=== PATIENT | female | born 1940 | race Caucasian/White ===

== ENCOUNTER → 2018-04-18 08:47 | Outpatient (CLI) | payer MEDICARE, OTHER, SELFPAY ==
[2018-04-18 10:24] LABS: Creatinine Urine Random 243.9 mg/dL
[2018-04-18 10:26] LABS: Alanine Aminotransferase 24 IU/L (9-52); Albumin 4.3 g/dL (3.5-5.0); Albumin Globulin Ratio 1.7 (1.0-2.8); Alkaline Phosphatase 45 U/L (38-126); Aspartate Aminotransferase 18 IU/L (14-36); BUN Creatinine Ratio 16.4 (6-22); Bilirubin Total 0.8 mg/dL (0.2-1.3); Blood Urea Nitrogen 18 mg/dL (7-17); Calcium 10.1 mg/dL (8.4-10.2); Carbon Dioxide 29 mmol/L (22-32); Chloride 101 mmol/L (98-107); Cholesterol 142 mg/dL (140-199); Globulin 2.6 g/dL (1.7-4.1); Glucose 175 mg/dL (80-110); HDL Cholesterol 51 mg/dL (40-60); HEMOLYSIS < 15 (0-50); LDL Cholesterol Calculated 54 mg/dL (<100); Potassium 4.3 mmol/L (3.4-5.1); Sodium 140 mmol/L (137-145); Total Protein 6.9 g/dL (6.3-8.2); Triglycerides 186 mg/dL (35-150)
[2018-04-18 10:30] LABS: Microalbumi Creatinin Ratio Ur 43.8 ug/mg CR (<30); Microalbumin Urine Random 10.7 mg/dL (0-1.6)
== END ==
PROVIDERS: PCP Physician Assistant; Visit Provider Physician Assistant
DX: E03.9 Hypothyroidism, unspecified (principal); E11.9 Type 2 diabetes mellitus without complications; E78.5 Hyperlipidemia, unspecified; I10 Essential (primary) hypertension
CPT/HCPCS: 36415; 80053; 80061; 82043; 82570; 83036; 84443

== ENCOUNTER → 2018-08-03 09:55 | Outpatient (CLI) | payer MEDICARE, OTHER, SELFPAY ==
[2018-08-03 10:55] LABS: Cholesterol 131 mg/dL (140-199); HDL Cholesterol 54 mg/dL (40-60); LDL Cholesterol Calculated 46 mg/dL (<100); Triglycerides 157 mg/dL (35-150)
[2018-08-03 11:06] LABS: Hemoglobin A1C% w Est Avg Glu 7.5 % (4.0-6.0)
== END ==
PROVIDERS: PCP Physician Assistant; Visit Provider Physician Assistant
DX: E03.9 Hypothyroidism, unspecified (principal); E11.65 Type 2 diabetes mellitus with hyperglycemia; E11.9 Type 2 diabetes mellitus without complications; E78.5 Hyperlipidemia, unspecified; I10 Essential (primary) hypertension
CPT/HCPCS: 36415; 80061; 83036

== ENCOUNTER → 2018-10-26 08:25 | Outpatient (CLI) | payer MEDICARE, OTHER, SELFPAY ==
[2018-10-26 09:00] LABS: Alanine Aminotransferase 23 IU/L (9-52); Albumin 4.3 g/dL (3.5-5.0); Albumin Globulin Ratio 1.7 (1.0-2.8); Alkaline Phosphatase 43 U/L (38-126); Aspartate Aminotransferase 14 IU/L (14-36); Bilirubin Total 0.6 mg/dL (0.2-1.3); Blood Urea Nitrogen 19 mg/dL (7-17); Carbon Dioxide 27 mmol/L (22-32); Chloride 102 mmol/L (98-107); Cholesterol 155 mg/dL (140-199); Estimated Glomerular Filt Rate 53.5 mL/min (>60); Globulin 2.6 g/dL (1.7-4.1); Glucose 174 mg/dL (80-110); HDL Cholesterol 52 mg/dL (40-60); HEMOLYSIS < 15 (0-50); LDL Cholesterol Calculated 59 mg/dL (<100); Sodium 138 mmol/L (137-145); Total Protein 6.9 g/dL (6.3-8.2); Triglycerides 218 mg/dL (35-150)
[2018-10-26 09:09] LABS: Hemoglobin A1C% w Est Avg Glu 7.9 % (4.0-6.0)
== END ==
PROVIDERS: PCP Physician Assistant; Visit Provider Physician Assistant
DX: E11.65 Type 2 diabetes mellitus with hyperglycemia (principal); E78.5 Hyperlipidemia, unspecified; I10 Essential (primary) hypertension
CPT/HCPCS: 36415; 80053; 80061; 83036

== ENCOUNTER → 2018-11-09 13:25 | Oncology outpatient (ONC) | payer MEDICARE, OTHER, SELFPAY ==
[2018-11-09 14:08] VITALS: BP 113/61; PULSE 61; RESP 16; TEMP 36.6; O2SAT 99
[2018-11-09] MEDS: ZOLEDRONIC ACID 5 MG in SODIUM CHLORIDE 0.9% 100 ML 318.75 ML IV (14:16)
== END ==
PROVIDERS: PCP Physician Assistant; Visit Provider Physician Assistant
DX: M85.89 Other specified disorders of bone density and structure, multiple sites (principal)
CPT/HCPCS: 96374; J3489

== ENCOUNTER → 2019-02-01 09:27 | Outpatient (CLI) | payer MEDICARE, OTHER, SELFPAY ==
--- NOTE | 2019-02-01 | DI.MG.S_ITS ---
BILATERAL DIGITAL SCREENING MAMMOGRAM 3D/2D WITH CAD: 02/01/2019 CLINICAL: Routine screening. Comparison is made to exams dated: 06/07/2017 mammogram, 12/25/2014 mammogram, and 12/18/2013 mammogram - [facility]. There are scattered fibroglandular elements in both breasts. Current study was also evaluated with a Computer Aided Detection (CAD) system. No significant masses, calcifications, or other findings are seen in either breast. There has been no significant interval change. IMPRESSION: NEGATIVE There is no mammographic evidence of malignancy. A 1 year screening mammogram is recommended. This exam was interpreted at Station ID: [id number]. NOTE: For mammograms, a report in lay terms will be sent to the patient. Approximately 15% of breast malignancies will not be visualized mammographically. In the management of a palpable breast mass, a negative mammogram must not discourage biopsy of a clinically suspicious lesion. Electronically Signed By: Tra caballero/jerome:02/01/2019 14:13:06 letter sent: Normal Exam ACR BI-RADS Category 1: Negative [id number]
== END ==
PROVIDERS: PCP Physician Assistant; Visit Provider Physician Assistant
DX: Z12.31 Encounter for screening mammogram for malignant neoplasm of breast (principal)
CPT/HCPCS: 77063; 77067

== ENCOUNTER → 2019-06-02 08:53 | Outpatient (CLI) | payer MEDICARE, OTHER, SELFPAY ==
[2019-06-02 10:13] LABS: Creatinine Urine Random 230.3 mg/dL
[2019-06-02 10:14] LABS: Add Manual Diff / Slide Review NO; Basophils Absolute Auto 100 /uL (0-100); Basophils Percent Auto 1.1 % (0-2); Eosinophils Absolute Auto 500 /uL (0-450); Eosinophils Percent Auto 8.3 % (2-4); Hematocrit 38.2 % (36-46); Hemoglobin 12.6 g/dL (12.0-16.0); Lymphocytes Absolute Auto 1600 /uL (1100-4500); Lymphocytes Percent Auto 28.7 % (25-40); Mean Corpuscular Hemoglobin 28.7 PG (26-34); Mean Corpuscular Volume 87.1 fL (80-100); Monocytes Absolute Auto 400 /uL (0-900); Monocytes Percent Auto 6.7 % (3-14); Neutrophils Absolute Auto 3100 /uL (1500-7000); Neutrophils Percent Auto 55.2 % (50-75); Platelet Count 294 X10^3/uL (150-400); Red Blood Cell Count 4.39 X10^6/uL (4.0-5.2); Red Cell Distribution Width 13.3 % (11.6-14.8); White Blood Cell Count 5.6 X10^3/uL (4.5-11.0)
[2019-06-02 10:17] LABS: Hemoglobin A1C% w Est Avg Glu 6.9 % (4.0-6.0)
[2019-06-02 10:17] LABS: Microalbumi Creatinin Ratio Ur 9.5 ug/mg CR (<30); Microalbumin Urine Random 2.2 mg/dL (0-1.6)
[2019-06-02 10:27] LABS: Alanine Aminotransferase 18 IU/L (9-52); Albumin Globulin Ratio 1.7 (1.0-2.8); Alkaline Phosphatase 33 U/L (38-126); Aspartate Aminotransferase 17 IU/L (14-36); BUN Creatinine Ratio 19.1 (6-22); Bilirubin Total 0.9 mg/dL (0.2-1.3); Blood Urea Nitrogen 21 mg/dL (7-17); Calcium 10.3 mg/dL (8.4-10.2); Carbon Dioxide 26 mmol/L (22-32); Chloride 102 mmol/L (98-107); Cholesterol 100 mg/dL (140-199); Estimated Glomerular Filt Rate 47.9 mL/min (>60); Globulin 2.3 g/dL (1.7-4.1); Glucose 141 mg/dL (80-110); HDL Cholesterol 44 mg/dL (40-60); HEMOLYSIS < 15 (0-50); Iron 96 ug/dL (37-170); LDL Cholesterol Calculated 31 mg/dL (<100); Potassium 4.8 mmol/L (3.4-5.1); Sodium 139 mmol/L (137-145); Total Protein 6.3 g/dL (6.3-8.2); Triglycerides 126 mg/dL (35-150)
[2019-06-02 10:57] LABS: Thyroid Stimulating Hormone 0.82 uIU/mL (0.47-4.68)
[2019-06-02 11:15] LABS: Vitamin B12 170 pg/mL (239-931)
== END ==
PROVIDERS: PCP Physician Assistant; Visit Provider Physician Assistant
DX: E03.9 Hypothyroidism, unspecified (principal); E11.65 Type 2 diabetes mellitus with hyperglycemia; E78.5 Hyperlipidemia, unspecified; I10 Essential (primary) hypertension; D50.9 Iron deficiency anemia, unspecified; E53.8 Deficiency of other specified B group vitamins; M85.89 Other specified disorders of bone density and structure, multiple sites; M81.0 Age-related osteoporosis without current pathological fracture
CPT/HCPCS: 36415; 80053; 80061; 82043; 82306; 82570; 82607; 83036; 83540; 84443; 85025

== ENCOUNTER → 2019-10-24 10:28 | Outpatient (CLI) | payer MEDICARE, OTHER, SELFPAY ==
[2019-10-24 13:02] LABS: Vitamin B12 223 pg/mL (239-931)
[2019-10-24 15:29] LABS: Vitamin D 25 Hydroxy (D3) 44.3 ng/mL (30.0-100.0)
== END ==
PROVIDERS: PCP Family Medicine; Referring Provider Family Medicine; Visit Provider Family Medicine
DX: E53.8 Deficiency of other specified B group vitamins (principal); E55.9 Vitamin D deficiency, unspecified
CPT/HCPCS: 36415; 82306; 82607

== ENCOUNTER → 2020-02-02 09:07 | Outpatient (CLI) | payer MEDICARE, OTHER, SELFPAY ==
[2020-02-02 11:21] LABS: Alanine Aminotransferase 11 IU/L (<35); Albumin 3.9 g/dL (3.5-5.0); Albumin Globulin Ratio 1.5 (1.0-2.8); Alkaline Phosphatase 47 U/L (38-126); Aspartate Aminotransferase 17 IU/L (14-36); BUN Creatinine Ratio 14.2 (6-22); Bilirubin Total 0.4 mg/dL (0.2-1.3); Blood Urea Nitrogen 17 mg/dL (7-17); Calcium 10.1 mg/dL (8.4-10.2); Carbon Dioxide 30 mmol/L (22-32); Chloride 102 mmol/L (98-107); Estimated Glomerular Filt Rate 43.2 mL/min (>60); Globulin 2.6 g/dL (1.7-4.1); Glucose 124 mg/dL (80-110); HEMOLYSIS < 15 (0-50); Potassium 4.8 mmol/L (3.4-5.1); Sodium 136 mmol/L (137-145); Total Protein 6.5 g/dL (6.3-8.2)
== END ==
PROVIDERS: PCP Family Medicine; Referring Provider Family Medicine; Visit Provider Family Medicine
DX: N28.9 Disorder of kidney and ureter, unspecified (principal)
CPT/HCPCS: 36415; 80053

== ENCOUNTER 2020-02-24 07:09 | Inpatient (IN) | payer MEDICARE, OTHER, SELFPAY ==
[2020-02-24] VITALS (29 sets, daily range): BP systolic 132–201; BP diastolic 50–82; PULSE 53–88; RESP 10–27; TEMP 36.4–37.2; O2SAT 91–100; BMI 25.6
--- NOTE | 2020-02-24 | PATH_ITS ---
[facility] Accession Number: [id number] . 01 Material submitted: . gallbladder - GALLBLADDER . 01 Clinical history: . VOMITING, ABDOMINAL PAIN SINCE YESTERDAY . 02 Diagnosis: Gallbladder, Cholecystectomy: Acute necrotizing cholecystitis with cholelithiasis. Negative for dysplasia and malignancy. [facility] 02/28/2020 1023 Local . 02 Electronically signed: . Carline Harmon MD, Pathologist NPI- [id number] . 01 Gross description: . Specimen A is received in formalin, labeled with patient identification and gallbladder. It consists of an intact gallbladder measuring 8.2 cm in length and 3.7 cm in diameter. The staple at the cystic duct margin is removed and the tissue underneath is inked blue. The cystic duct is 0.3 cm in diameter. The serosa is williamson-cleary, smooth, and dull with focally wide exudate. The hepatic surface is yellow to williamson-cleary, smooth, and mildly ragged. Opening the specimen reveals green to brown-cleary and velvety mucosa with multiple small and black calculi measuring 5.5 x 4.2 x 0.2 cm in aggregate. Multiple calculi are present at the neck. The wall thickness is up to 0.9 cm. A 0.9 x 0.6 x 0.5 cm cystic lymph node candidate is present. Bisecting reveals homogeneously yellow-cleary and smooth cut surfaces. Precision Filer Hand sections are submitted in three cassettes. . Summary of sections: A1: Cystic duct margin, one piece. A2: Precision Filer Hand sections of gallbladder, three pieces. A3: One bisected lymph node candidate, two pieces. ([id number]) /V 02/27/2020 1413 Local . 02 Pathologist provided ICD-10: K81.0 . 02 CPT . 169393 Performed at: 01 [facility] [address] [place] [address], [place], [place] [id number] MD Tra Butler MD Phone: [phone] Performed at: 02 [facility] [address] [place], [place] [id number] MD Carline Harmon MD Phone: [phone]
--- NOTE | 2020-02-24 07:19 | ED_ITS ---
HPI - General Adult General Chief complaint: Abdominal Pain Stated complaint: vomiting, abdominal pain since yesterday Time Seen by Provider: 02/24/20 07:19 History of Present Illness HPI narrative: 79-year-old woman with a history of hypertension, hyperlipidemia, subdural hematoma with surgery approximately 6 months ago and no residual complications, diabetes, reflux with a very distant history of GI bleeding presents complaining of acute abdominal pain. She went to bed in her usual state of health and got up around 130 to go to the bathroom and because of epigastric abdominal pain that she describes as tight and consistent radiating into both upper quadrants up into her chest and down toward her umbilicus. She has not had pain like this before. It was initially severe enough that it did cause her to vomit. The vomitus did not have any blood or coffee-ground particles. She had a normal bowel movement this morning that was not black or bloody and did not alleviate her pain. She describes no recent abnormalities in her health. She currently describes the pain as a 5/10 consistent and tight radiating from the epigastrium into chest upper and lower abdomen Related Data Home Medications Medication Instructions Recorded Confirmed lidocaine 5 % topical patch 1 patch TOP PRN PRN 10/03/19 02/24/20 melatonin 1 mg tablet 1 mg PO BEDTIME PRN 10/03/19 02/24/20 polyethylene glycol 3350 17 gram 17 gram PO PRN PRN 10/03/19 02/24/20 oral powder packet calcium carb-D3-mag ox-zinc ox 1 tab PO DAILY 02/24/20 02/24/20 [Ankush Mag Zinc Plus D3] insulin glargine 9 unit SUBCUT DAILY 02/24/20 02/24/20 metformin 1,000 mg PO QACLUNCH 02/24/20 02/24/20 vitamin B complex [B-Complex] 1 tab PO DAILY 02/24/20 02/24/20 Previous Rx's Medication Instructions Recorded Freestyle Lancets #100 each 11/01/18 zoledronic udum-eekbfcyt-xarfh 5 5 mg IV ONCE #100 ml 11/01/18 mg/100 mL in mannitol 5 %-water intravenous piggybck pantoprazole 40 mg tablet,delayed 40 mg PO QDAY #90 tab 04/19/19 release amlodipine 2.5 mg tablet 5 mg PO QDAY #90 tab 10/30/19 atorvastatin 20 mg tablet 20 mg PO HS #90 tab 10/30/19 levothyroxine 75 mcg tablet 75 mcg PO QAM #90 tab 10/30/19 Glucose: Test Strips #100 each 01/30/20 BD Ultra Fine Pen Eola #1 each 02/09/20 levetiracetam 1,000 mg tablet 1,000 mg PO BID #180 tab 02/09/20 lisinopril 5 mg tablet 5 mg PO QDAY #90 tab 02/09/20 metoprolol tartrate 25 mg tablet 25 mg PO BEDTIME #90 tab 02/09/20 Allergies Allergy/AdvReac Type Severity Reaction Status Date / Time No Known Drug Allergies Allergy Verified 02/24/20 07:30 Review of Systems Review of Systems Narrative: Pertinent positive and negative findings as per HPI Remainder of review of systems is otherwise unremarkable for Constitutional: Fevers, chills, weakness, no weight changes ENT: No sore throat, neck pain, ear pain CV: Chest pain, palpitations, dyspnea on exertion, increased lower extremity edema Respiratory: Cough, wheeze, dyspnea : Dysuria, hematuria, flank pain MS: Muscle weakness, numbness, joint swelling or warmth Skin: Rashes, nonhealing lesions Neuro: Syncope, dizziness, tingling Endocrine: Fatigue, heat or cold intolerance, Patient History Medical History Arthritis (Chronic) Cataracts, bilateral (Chronic) Diabetes (Chronic) History of Schaeffer's esophagus (Resolved) History of GI bleed (Resolved 1973) Hyperlipemia (Chronic) Hypertension (Chronic) Hypothyroidism (Chronic) Iron deficiency anemia (Chronic) Osteopenia (Chronic) Subdural hematoma (Acute) Surgical History History of knee replacement (Resolved 2008) Social History Smoking Status: Former smoker (1971) Tobacco: How many years used: 12 second hand exposure: No alcohol intake: current (2 glasses per wine ) substance use type: does not use Smoking Status: Former smoker (1971) Exam Narrative Exam Narrative: General: Healthy appearing, in no acute distress. Able to give a complete and coherent history. Well-nourished well-developed, able to walk into the room without any pain HEENT: Moist mucous membranes, normal sclera with reactive pupils, Neck: No JVD, supple Respiratory: Lungs are clear to auscultation, no wheezing no rales no rhonchi. Full and symmetrical air movement Cardiac: Regular rate and rhythm no murmurs no bruits Abdomen: Soft, mildly tender in the midepigastrium there is no rebound or guarding. Good bowel tones, no flank pain Skin: Warm and dry, no rashes Neurologic: Grossly neurologically intact with no obvious asymmetries or abnormalities Extremities: No trauma, well perfused Psych: Cooperative, appropriate insight and affect Initial Vital Signs Initial Vital Signs: Vital Signs Temperature 97.6 F 02/24/20 07:30 Pulse Rate 62 02/24/20 07:30 Respiratory Rate 16 02/24/20 07:30 Blood Pressure 201/82 H 02/24/20 07:30 Pulse Oximetry 96 02/24/20 07:30 Course Orders Ordered: ED Orders 02/24/20 07:28 Urine Culture Stat Urine Microscopic Stat 02/24/20 08:15 Complete Blood Count AUTO DIFF Stat Comprehensive Metabolic Panel Stat Lipase Stat Troponin & CK Cardiac Panel Stat Type and Screen Stat 02/24/20 10:24 CT abdomen pelvis w con Stat 02/24/20 12:11 US abdomen limited Stat 02/24/20 14:20 Education, smoking cessation ONGOING Piperacillin/Tazobactam/Dextrose (Zosyn) 3.375 gm in 50 mls @ 100 mls/hr IV NOW ONE Stop: 02/24/20 15:22 Last Admin: 02/24/20 15:15 Dose: 100 mls/hr Documented by: MAYNOR Lactated Ringer's (Lactated Ringers) 1,000 mls @ 42 mls/hr IV CONT NAMAN Last Admin: 02/24/20 15:16 Dose: 42 mls/hr Documented by: MAYNOR Discontinued Medications Acetaminophen (Tylenol) 975 mg PO NOW ONE Stop: 02/24/20 15:10 Gabapentin (Neurontin) 300 mg PO NOW ONE Stop: 02/24/20 15:10 Hydromorphone HCl (Dilaudid) 0.5 mg IV NOW ONE Stop: 02/24/20 11:13 Last Admin: 02/24/20 11:14 Dose: 0.5 mg Documented by: ROMY Hydromorphone HCl (Dilaudid) 0.5 mg IV NOW ONE Stop: 02/24/20 13:35 Last Admin: 02/24/20 13:46 Dose: 0.5 mg Documented by: ROMY Sodium Chloride (Normal Saline 0.9%) 1,000 mls @ 1,000 mls/hr IV BOLUS ONE Stop: 02/24/20 08:41 Last Infusion: 02/24/20 09:08 Dose: 0 mls/hr Documented by: Admin: 02/24/20 07:50 Dose: 1,000 mls/hr Documented by: MAYNOR Ceftriaxone Sodium/Dextrose (Rocephin) 1 gm in 50 mls @ 100 mls/hr IV NOW ONE Stop: 02/24/20 12:41 Last Infusion: 02/24/20 13:00 Dose: 0 mls/hr Documented by: Admin: 02/24/20 12:17 Dose: 100 mls/hr Documented by: ROMY Metronidazole (Flagyl) 500 mg in 100 mls @ 100 mls/hr IV NOW ONE Stop: 02/24/20 13:10 Last Infusion: 02/24/20 14:13 Dose: 0 mls/hr Documented by: Admin: 02/24/20 13:00 Dose: 100 mls/hr Documented by: ROMY Levetiracetam 1,000 mg/ Sodium (Chloride) 110 mls @ 440 mls/hr IV NOW ONE Stop: 02/24/20 13:35 Last Infusion: 02/24/20 14:32 Dose: 0 mls/hr Documented by: Admin: 02/24/20 14:13 Dose: 440 mls/hr Documented by: ROMY Ondansetron HCl (Zofran) 4 mg IV NOW ONE Stop: 02/24/20 07:43 Last Admin: 02/24/20 07:50 Dose: 4 mg Documented by: MAYNOR Ondansetron HCl (Zofran) 4 mg IV NOW ONE Stop: 02/24/20 10:16 Last Admin: 02/24/20 10:19 Dose: 4 mg Documented by: ROMY Vital Signs Vital signs: Vital Signs - 8 hr 02/24/20 07:30 02/24/20 07:58 02/24/20 08:30 Temperature 97.6 F Pulse Rate 62 55 L 53 L Respiratory Rate 16 16 14 Blood Pressure 201/82 H 171/72 H 174/74 H Pulse Oximetry 96 98 98 02/24/20 10:24 02/24/20 11:30 02/24/20 12:00 Temperature Pulse Rate 73 65 78 Respiratory Rate 14 15 12 Blood Pressure 162/69 H 180/77 H 155/67 H Pulse Oximetry 99 96 95 02/24/20 12:30 02/24/20 13:00 02/24/20 14:30 Temperature Pulse Rate 82 70 88 Respiratory Rate 27 H 12 20 Blood Pressure 161/68 H 176/69 H 176/72 H Pulse Oximetry 97 98 94 Medical Decision Making Medical Records Medical records reviewed: Yes I reviewed the patient's medical records. Lab Data Lab results reviewed: Yes I reviewed the patient's lab results. Result diagrams: 02/24/20 08:15 02/24/20 08:15 Labs: Lab Results 02/24/20 02/24/20 02/24/20 Range/Units 07:28 08:15 08:15 WBC 10.4 (4.5-11.0) X10^3/uL RBC 4.44 (4.0-5.2) X10^6/uL Hgb 11.5 L (12.0-16.0) g/dL Hct 35.5 L (36-46) % MCV 79.8 L (80-100) fL MCH 25.9 L (26-34) PG MCHC 32.4 (30-36) % RDW 14.8 (11.6-14.8) % Plt Count 342 (150-400) X10^3/uL Neut % (Auto) 89.4 H (50-75) % Lymph % (Auto) 7.6 L (25-40) % Emery % (Auto) 2.2 L (3-14) % Eos % (Auto) 0.3 L (2-4) % Baso % (Auto) 0.5 (0-2) % Neut # (Auto) 9300 H (9325-3094) /uL Lymph # (Auto) 800 L (7243-6948) /uL Emery # (Auto) 200 (0-900) /uL Eos # (Auto) 0 (0-450) /uL Baso # (Auto) 0 (0-100) /uL Sodium 137 (137-145) mmol/L Potassium 5.2 H (3.4-5.1) mmol/L Chloride 103 (98-107) mmol/L Carbon Dioxide 28 (22-32) mmol/L BUN 22 H (7-17) mg/dL Creatinine 1.09 H (0.52-1.04) mg/dL Estimated GFR 48.3 L (>60) mL/min BUN/Creatinine Ratio 20.2 (6-22) Glucose 177 H (80-110) mg/dL Calcium 10.2 (8.4-10.2) mg/dL Total Bilirubin 0.4 (0.2-1.3) mg/dL AST 18 (14-36) IU/L ALT 12 (<35) IU/L Alkaline Phosphatase 49 (38-126) U/L Total Creatine Kinase 30 (30-135) U/L CK-MB (CK-2) TNP CK-MB (CK-2) Rel Index TNP Troponin I < 0.012 (0.01-0.034) ng/mL Total Protein 6.9 (6.3-8.2) g/dL Albumin 4.4 (3.5-5.0) g/dL Globulin 2.5 (1.7-4.1) g/dL Albumin/Globulin Ratio 1.8 (1.0-2.8) Lipase 169 (23-300) U/L Urine RBC 0-1/hpf (0-5/HPF) Urine WBC 1-5/hpf (0-5/HPF) Ur Squamous Epith Cells 1-5 /hpf (0-5/HPF) Urine Bacteria None seen (None) Ur Culture Indicated? Specimen cultured Micro UA Comment Lanie esterase + COVID-19 PCR (Negative) Blood Type Antibody Screen 02/24/20 02/24/20 Range/Units 08:15 11:00 WBC (4.5-11.0) X10^3/uL RBC (4.0-5.2) X10^6/uL Hgb (12.0-16.0) g/dL Hct (36-46) % MCV (80-100) fL MCH (26-34) PG MCHC (30-36) % RDW (11.6-14.8) % Plt Count (150-400) X10^3/uL Neut % (Auto) (50-75) % Lymph % (Auto) (25-40) % Emery % (Auto) (3-14) % Eos % (Auto) (2-4) % Baso % (Auto) (0-2) % Neut # (Auto) (4774-8102) /uL Lymph # (Auto) (5280-3859) /uL Emery # (Auto) (0-900) /uL Eos # (Auto) (0-450) /uL Baso # (Auto) (0-100) /uL Sodium (137-145) mmol/L Potassium (3.4-5.1) mmol/L Chloride (98-107) mmol/L Carbon Dioxide (22-32) mmol/L BUN (7-17) mg/dL Creatinine (0.52-1.04) mg/dL Estimated GFR (>60) mL/min BUN/Creatinine Ratio (6-22) Glucose (80-110) mg/dL Calcium (8.4-10.2) mg/dL Total Bilirubin (0.2-1.3) mg/dL AST (14-36) IU/L ALT (<35) IU/L Alkaline Phosphatase (38-126) U/L Total Creatine Kinase (30-135) U/L CK-MB (CK-2) CK-MB (CK-2) Rel Index Troponin I (0.01-0.034) ng/mL Total Protein (6.3-8.2) g/dL Albumin (3.5-5.0) g/dL Globulin (1.7-4.1) g/dL Albumin/Globulin Ratio (1.0-2.8) Lipase (23-300) U/L Urine RBC (0-5/HPF) Urine WBC (0-5/HPF) Ur Squamous Epith Cells (0-5/HPF) Urine Bacteria (None) Ur Culture Indicated? Micro UA Comment COVID-19 PCR Negative (Negative) Blood Type A Positive Antibody Screen Negative Urine Dip Bedside Urine Glucose Negative Bedside Urine Bilirubin + 1 Bedside Urine Ketone - Negative Urine Specific [place] 1.030 Bedside Urine Occult Blood - Negative Bedside Urine pH 5.0 Bedside Urine Protein +/- 15 Bedside Urine Urobilinogen +/- 1mg Bedside Urine Nitrite - Negative Bedside Urine Leukocytes +/- 15 Esterase Point of care testing: Urine Dip Bedside Urine Glucose Negative Bedside Urine Bilirubin + 1 Bedside Urine Ketone - Negative Urine Specific [place] 1.030 Bedside Urine Occult Blood - Negative Bedside Urine pH 5.0 Bedside Urine Protein +/- 15 Bedside Urine Urobilinogen +/- 1mg Bedside Urine Nitrite - Negative Bedside Urine Leukocytes +/- [address] scan - abdomen/pelvis: Radiologist's Impression: ABDOMEN: Lung bases: Lung bases are clear. Heart size is normal. Solid organs: Liver is normal in size and enhancement. There is a probable small cystic duct stone. It is either in the cystic duct or the common duct. There are numerous tiny gallstones in the gallbladder. There is gallbladder wall edema. Findings are consistent with acute cholecystitis. Biliary system is non dilated. Pancreas enhances normally. Spleen is normal in size and enhancement. Indeterminate left adrenal nodule measuring 2 cm in maximum diameter. The Kidneys demonstrate normal size and enhancement, without hydronephrosis. Peritoneum and bowel: Bowel loops demonstrate normal wall thickness and caliber. No free fluid or air. Large amount of rectal fecal debris. Sigmoid diverticulosis without evidence of diverticulitis. Nodes and vessels: No retroperitoneal or mesenteric adenopathy by size criteria. Aorta and inferior vena cava are normal in size. Miscellaneous: No ventral hernias. PELVIS: Genitourinary: Bladder wall thickness is normal. Miscellaneous: No inguinal hernias or adenopathy. Bones: No suspicious bony lesions. No acute vertebral body compression fractures. IMPRESSION: 1. Numerous gallstones and gallbladder wall edema are consistent with acute cholecystitis. 2. There is either a small cystic duct stone or common duct stone. 3. Indeterminate left adrenal nodule. Comparison with previous studies may be helpful. Dictated by: Chavo Goel M.D. on 02/24/2020 at 10:03 US - abdomen: Radiologist's Impression: discussed with Tech: can fully see the common bile duct and it appears to to be free of stones. Pancreatic duct measures 3mm (upper limits of normal) and does not look obstructed. Cannot visualilze the cystic duct. Pericholecystic fluid and wall is 6mm (thickened). ECG Data Attestation: I personally reviewed and interpreted this ECG as follows: Interpretation: Sinus rhythm rate is 63 No acute STT wave changes Normal axis, normal intervals MDM Narrative Medical decision making narrative: 87-year-old woman with acute abdominal pain starting at 1:[address] scan indicates acute cholecystitis with thickened gallbladder wall however labs are still normal with no significant leukocytosis and no abnormal LFTs. CT scan states there is ?either a small cystic duct or common duct stone. Care is reviewed with Dr. Wong, surgery. Will order an ultrasound to see if we can further clarify whether the stone of concern noted on the CT scan is truly in the cystic duct or the common duct as this will mandate which facility would be most appropriate for a cholecystec rosa m. In the meantime, patient's nausea has been controlled with Zofran. She has required another dose of Dilaudid. Will add Zofran and metronidazole as we are sorting out the remainder of details regarding location of stones. 135pm results of ultrasound reviewed with Dr. Wong. He will proceed with surgery here at [place]. Reviewed findings with patient. Questions were answered. She is concerned she was her morning Keppra dose, will facilitate this IV. Additional dose of Dilaudid is given for pain control at this time. She is otherwise stable for transfer to the floor/operating room for anticipated cholecystectomy. Discharge Plan Departure Patient Disposition: Admitted as Observation Clinical Impression: Acute cholecystitis Referrals: Jt Saldaña DO [Primary Care Provider] -
[2020-02-24 07:42] LABS: Bacteria Urine None Seen
[2020-02-24] MEDS: ONDANSETRON 4 MG/2 ML INJ IV ×3 (07:50→17:23)
[2020-02-24] MEDS: SODIUM CHLORIDE 0.9% 1,000 ML 1000 ML IV (07:50)
[2020-02-24 08:04] LABS: RBC Urine 0-1/HPF (0-5/HPF); Squamous Epithelial Cell Urine 1-5 /HPF (0-5/HPF); WBC Urine 1-5/HPF (0-5/HPF)
[2020-02-24 08:06] LABS: Culture Indicated Urine Specimen Cultured; Urine Comments LEU ESTERASE +
[2020-02-24 08:52] LABS: Add Manual Diff / Slide Review NO; Basophils Absolute Auto 0 /uL (0-100); Basophils Percent Auto 0.5 % (0-2); Eosinophils Absolute Auto 0 /uL (0-450); Eosinophils Percent Auto 0.3 % (2-4); Hematocrit 35.5 % (36-46); Hemoglobin 11.5 g/dL (12.0-16.0); Lymphocytes Absolute Auto 800 /uL (1100-4500); Lymphocytes Percent Auto 7.6 % (25-40); Mean Corpuscular HGB Conc 32.4 % (30-36); Mean Corpuscular Hemoglobin 25.9 PG (26-34); Mean Corpuscular Volume 79.8 fL (80-100); Monocytes Absolute Auto 200 /uL (0-900); Monocytes Percent Auto 2.2 % (3-14); Neutrophils Absolute Auto 9300 /uL (1500-7000); Neutrophils Percent Auto 89.4 % (50-75); Platelet Count 342 X10^3/uL (150-400); Red Blood Cell Count 4.44 X10^6/uL (4.0-5.2); Red Cell Distribution Width 14.8 % (11.6-14.8); White Blood Cell Count 10.4 X10^3/uL (4.5-11.0)
[2020-02-24 09:02] LABS: Alanine Aminotransferase 12 IU/L (<35); Albumin 4.4 g/dL (3.5-5.0); Albumin Globulin Ratio 1.8 (1.0-2.8); Alkaline Phosphatase 49 U/L (38-126); Aspartate Aminotransferase 18 IU/L (14-36); BUN Creatinine Ratio 20.2 (6-22); Bilirubin Total 0.4 mg/dL (0.2-1.3); Blood Urea Nitrogen 22 mg/dL (7-17); Calcium 10.2 mg/dL (8.4-10.2); Carbon Dioxide 28 mmol/L (22-32); Chloride 103 mmol/L (98-107); Creatine Kinase 30 U/L (30-135); Estimated Glomerular Filt Rate 48.3 mL/min (>60); Globulin 2.5 g/dL (1.7-4.1); Glucose 177 mg/dL (80-110); HEMOLYSIS < 15 (0-50); Lipase 169 U/L (23-300); Potassium 5.2 mmol/L (3.4-5.1); Sodium 137 mmol/L (137-145); Total Protein 6.9 g/dL (6.3-8.2)
[2020-02-24 09:13] LABS: Troponin I < 0.012 ng/mL (0.01-0.034)
--- NOTE | 2020-02-24 10:24 | DI.CT.S_ITS ---
PROCEDURE: CT ABDOMEN PELVIS W CON INDICATIONS: upper abd pain TECHNIQUE: After the administration of intravenous contrast, 5 mm thick sections acquired from the diaphragm to the symphysis. 5 mm coronal and sagittal reformats were acquired. For radiation dose reduction, the following was used: automated exposure control, adjustment of mA and/or kV according to patient size. COMPARISON: None. FINDINGS: Image quality: Excellent. ABDOMEN: Lung bases: Lung bases are clear. Heart size is normal. Solid organs: Liver is normal in size and enhancement. There is a probable small cystic duct stone. It is either in the cystic duct or the common duct. There are numerous tiny gallstones in the gallbladder. There is gallbladder wall edema. Findings are consistent with acute cholecystitis. Biliary system is non dilated. Pancreas enhances normally. Spleen is normal in size and enhancement. Indeterminate left adrenal nodule measuring 2 cm in maximum diameter. The Kidneys demonstrate normal size and enhancement, without hydronephrosis. Peritoneum and bowel: Bowel loops demonstrate normal wall thickness and caliber. No free fluid or air. Large amount of rectal fecal debris. Sigmoid diverticulosis without evidence of diverticulitis. Nodes and vessels: No retroperitoneal or mesenteric adenopathy by size criteria. Aorta and inferior vena cava are normal in size. Miscellaneous: No ventral hernias. PELVIS: Genitourinary: Bladder wall thickness is normal. Miscellaneous: No inguinal hernias or adenopathy. Bones: No suspicious bony lesions. No acute vertebral body compression fractures. IMPRESSION: 1. Numerous gallstones and gallbladder wall edema are consistent with acute cholecystitis. 2. There is either a small cystic duct stone or common duct stone. 3. Indeterminate left adrenal nodule. Comparison with previous studies may be helpful. Dictated by: Chavo Goel M.D. on 02/24/2020 at 10:03 Approved by: Chavo Goel M.D. on 02/24/2020 at 10:07
[2020-02-24] MEDS: HYDROMORPHONE 0.5 MG INJ IV ×4 (11:14→23:43)
--- NOTE | 2020-02-24 12:11 | DI.US.S_ITS ---
PROCEDURE: US ABDOMEN LIMITED INDICATIONS: CLARIFY CYSTIC VS COMMON DUCT STONE TECHNIQUE: Real-time focused scanning was performed of the abdomen, with image documentation. COMPARISON: CT abdomen and pelvis with contrast dated 02/24/20. FINDINGS: The gallbladder wall is thickened, measuring 6 mm, with gallbladder wall edema. Patient is currently on pain medications. There is no pain on examination currently. There is a small amount of fluid around the gallbladder. The common duct is dilated, measuring 5.6 mm at the level of the common bile duct and 5.2 mm at the level of the common hepatic duct. IMPRESSION: 1. Findings are supportive of the diagnosis of acute appendicitis. There is a lack of a sonographic Ferguson's sign in this patient who has received pain medication. 2. The calcifications seen on the CT is likely within the cystic duct or outside of the biliary tree. The common bile duct and common hepatic duct are nondilated. Comment: MRCP may potentially be helpful, if it would be of clinical benefit to identify the location of this calcification. Dictated by: Chavo Goel M.D. on 02/24/2020 at 12:34 Approved by: Chavo Goel M.D. on 02/24/2020 at 12:39
[2020-02-24] MEDS: CEFTRIAXONE 1 GM/50 ML FROZ.PIGGY IV (12:17)
[2020-02-24 12:37] LABS: COVID19 -Nasal RAPID Negative (Negative)
[2020-02-24] MEDS: metroNIDAZOLE 500 MG/100 ML PIGGYBACK 100 MG IV (13:00)
[2020-02-24] MEDS: levETIRAcetam 1,000 MG in SODIUM CHLORIDE 0.9% 100 ML 440 ML IV (14:13)
--- NOTE | 2020-02-24 14:53 | PM.HP.1 ---
History of Present Illness History of Present Illness Date Patient Seen: 02/24/20 Time Patient Seen: 14:53 Chief complaint: vomiting, abdominal pain since yesterday Narrative: This 79-year-old woman who is seen in evaluation for acute cholecystitis. She developed right upper quadrant/epigastric pain 12 hours ago which has been constant. She normally has biliary colic which resolved spontaneously after about an hour but this pain is not resolved. Associated with nausea and 2 bouts of emesis. Last oral intake was last night. No prior abdominal surgery she has not on anticoagulation. Past medical is significant for a subdural hematoma July 2019 status post craniotomy and she has no major residual defects. No history of coronary artery disease, valvular disease, arrhythmia, peripheral vascular disease, diabetes, pulmonary or renal insufficiency. They are a nonsmoker. Patient History Medical History Arthritis (Chronic) Cataracts, bilateral (Chronic) Diabetes (Chronic) History of Schaeffer's esophagus (Resolved) History of GI bleed (Resolved 1973) Hyperlipemia (Chronic) Hypertension (Chronic) Hypothyroidism (Chronic) Iron deficiency anemia (Chronic) Osteopenia (Chronic) Subdural hematoma (Acute) Surgical History History of knee replacement (Resolved 2008) Family & Social History Safety & Behavioral: Feels Safe in Current Yes Environment Been Physically Hurt or No Threatened By a Person Tobacco & Substance use: Smoking Status Former smoker alcohol intake current Meds Home Medications and Allergies Home Medications Medication Instructions Recorded Confirmed Type Freestyle Lancets #100 each 11/01/18 02/09/20 Rx zoledronic sigm-prwyvxrs-czkhf 5 5 mg IV ONCE #100 ml 11/01/18 02/09/20 Rx mg/100 mL in mannitol 5 %-water intravenous piggybck pantoprazole 40 mg tablet,delayed 40 mg PO QDAY #90 tab 04/19/19 02/24/20 Rx release lidocaine 5 % topical patch 1 patch TOP PRN PRN 10/03/19 02/24/20 History melatonin 1 mg tablet 1 mg PO BEDTIME PRN 10/03/19 02/24/20 History polyethylene glycol 3350 17 gram 17 gram PO PRN PRN 10/03/19 02/24/20 History oral powder packet amlodipine 2.5 mg tablet 5 mg PO QDAY #90 tab 10/30/19 02/24/20 Rx atorvastatin 20 mg tablet 20 mg PO HS #90 tab 10/30/19 02/24/20 Rx levothyroxine 75 mcg tablet 75 mcg PO QAM #90 tab 10/30/19 02/24/20 Rx Glucose: Test Strips #100 each 01/30/20 02/09/20 Rx BD Ultra Fine Pen [place] #1 each 02/09/20 02/09/20 Rx levetiracetam 1,000 mg tablet 1,000 mg PO BID #180 tab 02/09/20 02/24/20 Rx lisinopril 5 mg tablet 5 mg PO QDAY #90 tab 02/09/20 02/24/20 Rx metoprolol tartrate 25 mg tablet 25 mg PO BEDTIME #90 tab 02/09/20 02/24/20 Rx calcium carb-D3-mag ox-zinc ox 1 tab PO DAILY 02/24/20 02/24/20 History [Ankush Mag Zinc Plus D3] insulin glargine 9 unit SUBCUT DAILY 02/24/20 02/24/20 History metformin 1,000 mg PO QACLUNCH 02/24/20 02/24/20 History vitamin B complex [B-Complex] 1 tab PO DAILY 02/24/20 02/24/20 History Allergies Allergy/AdvReac Type Severity Reaction Status Date / Time No Known Drug Allergies Allergy Verified 02/24/20 07:30 Review of Systems Review of Systems Narrative: A 10 point review of systems is negative except as noted in the HPI Exam Vital Signs (past 8 hours): - 02/24/20 07:30 02/24/20 07:58 02/24/20 08:30 Temperature 97.6 F Pulse Rate 62 55 L 53 L Respiratory Rate 16 16 14 Blood Pressure 201/82 H 171/72 H 174/74 H Pulse Oximetry 96 98 98 02/24/20 10:24 02/24/20 11:30 02/24/20 12:00 Temperature Pulse Rate 73 65 78 Respiratory Rate 14 15 12 Blood Pressure 162/69 H 180/77 H 155/67 H Pulse Oximetry 99 96 95 02/24/20 12:30 02/24/20 13:00 02/24/20 14:30 Temperature Pulse Rate 82 70 88 Respiratory Rate 27 H 12 20 Blood Pressure 161/68 H 176/69 H 176/72 H Pulse Oximetry 97 98 94 Oxygen Delivery Method Room Air Narrative Exam Narrative: General-no acute distress, elderly female HEENT-moist mucous membranes, no scleral icterus Neck-supple, no lymphadenopathy Chest- non labored respirations, clear to auscultation bilaterally Cardiac-regular rate no peripheral edema Abdomen-right upper quadrant is tender to palpation. Extremities-warm, well perfused Neurological-alert and oriented, no gross focal deficits Objective Labs Result Diagrams: 02/24/20 08:15 02/24/20 08:15 Labs: Laboratory Results - last 24 hr 02/24/20 02/24/20 02/24/20 07:28 08:15 08:15 WBC 10.4 RBC 4.44 Hgb 11.5 L Hct 35.5 L MCV 79.8 L MCH 25.9 L MCHC 32.4 RDW 14.8 Plt Count 342 Neut % (Auto) 89.4 H Lymph % (Auto) 7.6 L [place] % (Auto) 2.2 L Eos % (Auto) 0.3 L Baso % (Auto) 0.5 Neut # (Auto) 9300 H Lymph # (Auto) 800 L [place] # (Auto) 200 Eos # (Auto) 0 Baso # (Auto) 0 Sodium 137 Potassium 5.2 H Chloride 103 Carbon Dioxide 28 BUN 22 H Creatinine 1.09 H Estimated GFR 48.3 L BUN/Creatinine Ratio 20.2 Glucose 177 H Calcium 10.2 Total Bilirubin 0.4 AST 18 ALT 12 Alkaline Phosphatase 49 Total Creatine Kinase 30 CK-MB (CK-2) TNP CK-MB (CK-2) Rel Index TNP Troponin I < 0.012 Total Protein 6.9 Albumin 4.4 Globulin 2.5 Albumin/Globulin Ratio 1.8 Lipase 169 Urine RBC 0-1/hpf Urine WBC 1-5/hpf Ur Squamous Epith Cells 1-5 /hpf Urine Bacteria None seen Ur Culture Indicated? Specimen cultured Micro UA Comment Lanie esterase + COVID-19 PCR Blood Type Antibody Screen 02/24/20 02/24/20 08:15 11:00 WBC RBC Hgb Hct MCV MCH MCHC RDW Plt Count Neut % (Auto) Lymph % (Auto) [place] % (Auto) Eos % (Auto) Baso % (Auto) Neut # (Auto) Lymph # (Auto) [place] # (Auto) Eos # (Auto) Baso # (Auto) Sodium Potassium Chloride Carbon Dioxide BUN Creatinine Estimated GFR BUN/Creatinine Ratio Glucose Calcium Total Bilirubin AST ALT Alkaline Phosphatase Total Creatine Kinase CK-MB (CK-2) CK-MB (CK-2) Rel Index Troponin I Total Protein Albumin Globulin Albumin/Globulin Ratio Lipase Urine RBC Urine WBC Ur Squamous Epith Cells Urine Bacteria Ur Culture Indicated? Micro UA Comment COVID-19 PCR Negative Blood Type A Positive Antibody Screen Negative Assessment & Plan Assessment and plan (1) Acute cholecystitis: Status: Acute Assessment & Plan narrative: This 79-year-old female with acute cholecystitis with less than 24 hours worth of symptoms. She has significant right upper quadrant tenderness are reviewed her ultrasound as well as her CT which demonstrate edema of the gallbladder wall pericholecystic fluid normal common bile duct diameter. Labs her reviewed demonstrate white blood cell count 10, total bilirubin 0.4 normal LFTs. Told her that I recommend proceeding with a laparoscopic cholecystectomy. I kayla her a diagram to illustrate the pathology as well as the operation. I described the technical nature of the operation to her as well as the postoperative recovery and the operative risks of conversion to open, damage to the surrounding structures including bile duct intestine liver, hemorrhage, infection, bile leak. Her questions have been answered she is in agreement with this plan will proceed to the operating room. COVID-19 COVID-19 status: Negative Result date/Date tested (Pos, Neg/Pending): 02/24/20
[2020-02-24] MEDS: PIPERACILLIN-TAZO 3.375 GM/50 ML FROZ.PIGGY IV (15:15)
[2020-02-24] MEDS: LACTATED RINGERS 1,000 ML 42 ML IV (15:16)
--- NOTE | 2020-02-24 16:07 | SUR.OPER ---
Supine on padded OR bed, head on pillow, safety belt at thigh, left arm padded and tucked at side. Right arm secured on padded arm oard <90 degrees abduction. Legs uncrossed. Padded footboard in place. Tape over blanket to secure lower legs.
[2020-02-24] MEDS: BUPIVACAINE 0.25% (PF) VIAL 30 ML INJ (16:13)
[2020-02-24] MEDS: GABAPENTIN 300 MG CAPSULE PO (16:14)
[2020-02-24] MEDS: ACETAMINOPHEN 325 MG TABLET 975 MG PO (16:15)
--- NOTE | 2020-02-24 17:11 | P.OP_ITS ---
Operative Date/Time/Diagnoses Date of procedure: 02/24/20 Time of procedure: 17:11 Pre-op diagnosis: Acute cholecystitis Post-op diagnosis: same Procedure & Clinicians Procedure: Laparoscopic cholecystectomy Same procedure as scheduled: Yes Indications: 79-year-old female with 12 hours of epigastric pain found have acute cholecystitis. Surgeon: Tereso Wong Click Yes if Unassisted: Yes Anesthesia Type: General Operative Notes Findings: Acute cholecystitis severely edematous gallbladder with stranding of the omentum to the gallbladder consistent with acute on chronic cholecystitis. Specimen(s): other (Gallbladder) Estimated Blood Loss (mL): 100 Procedure in detail: The patient was placed supine on the table and bilateral lower extremity compression devices were applied. Anesthesia was induced they were intubated with an endotracheal tube and received Zosyn. A time-out was performed. They were prepped and draped in sterile fashion. An infraumbilical incision was made, the umbilical stalk was elevated and the fascia was sharply incised entering the abdomen atraumatically. A blunt tip 12mm balloon trocar was then inserted, pneumoperitoneum was established and inspection of the abdomen demonstrated no evidence of injury. They were placed head up and right side up and then a 11 mm port was placed high in the epigastrium and two 5mm in the right upper quadrant. The gallbladder was extremely edematous and difficult to grasp and was percutaneously drained to facilitate its manipulation. There were significant amount of adhesions from the omentum to the gallbladder fundus consistent with acute on chronic cholecystitis and these were taken down using electrocautery carefully. The gallbladder was grasped by the fundus and retracted over the liver and retracted laterally by the infundibulum. Using electrocautery the lateral plane between the gallbladder and the liver was o pened towards the fundus. The gallbladder was then retracted laterally and the medial plane was developed in the same manner. With the gallbladder mobilized the bottom of the cystic plate was visualized. The hepatocystic triangle was meticulosly skeletonized using hook electrocautery of all fat and fibrous tissue from both the front and the back. Only two structures were then clearly seen entering the gallbladder the cystic duct and the cystic artery. With the critical view of safety fully established the cystic duct was clipped twice proximally and once distally using the 10 mm clip applied under direct visualization and then sharply divided. The cystic artery was divided in the same fashion. There was some bleeding from the cystic artery and I placed a PDS endoloop over the cystic artery under direct visualization, approximately 100 mL of blood was lost. The gallbladder was removed from the liver bed using electro cautery. The liver bed was then inspected for hemostasis and this was achieved. The abdomen was irrigated with sterile saline and inspection was made that showed the clips in good position. The specimen was removed using Endo-Catch. The abdomen was desufflated. The umbilical fascia was closed with 0 Vicryl in a [id number]-rz-friig fashion under direct visualization. Skin incisions were irrigated and closed with 4-0 Monocryl. 30 ml of 0.25% bupivacaine was infiltrated into the subcutaneous tissue of the incisions. The wounds were sealed with Dermabond. Patient emerged from anesthesia was extubated and transferred to recovery in stable condition. The sponge and instrument count at the end of the operation was correct. Complications: none Post-operative Condition: stable Disposition: Acute Care
[2020-02-24] MEDS: HYDROMORPHONE 2 MG INJ 0.5 MG IV (17:35)
[2020-02-24] MEDS: ACETAMINOPHEN IV 1,000 MG/100 ML VIAL 400 MG IV (17:45)
[2020-02-24] MEDS: LACTATED RINGERS 1,000 ML 100 ML IV (20:28)
[2020-02-24] MEDS: ATORVASTATIN 20 MG TABLET PO (21:08)
[2020-02-24] MEDS: levETIRAcetam 250 MG TABLET 1000 MG PO (21:09)
[2020-02-24] MEDS: OXYCODONE/ACETAMINOPHEN 5/325 TABLET 1 TAB PO (22:43)
[2020-02-25] VITALS (14 sets, daily range): BP systolic 137–149; BP diastolic 58–91; PULSE 89–116; RESP 16–18; TEMP 36.4–37.3; O2SAT 92–99
--- NOTE | 2020-02-25 00:05 | PC.NURSE ---
Addendum entered by Nasrin Abdul R.N. 02/25/20 06:53: RA sat was 93% but now sleeping and sat fluctuating 89-93% so placed back on 0.5L/min oxygen Addendum entered by Nasrin Abdul R.N. 02/25/20 06:04: States pain this morning is 4/10; requested/medicated with Percocet. Addendum entered by Nasrin Abdul R.N. 02/25/20 03:20: Gotten [place] [facility] [place]; patient complains of feeling woozy. Able to urinate 450cc. After gotten back to bed complained of nausea and had a 75cc yellow/green liquid emesis so medicated with Zofran. Pain in right shoulder has resolved but complaining of 6/10 abdominal pain. Due to nausea medicated with IV Dilaudid. CBG 262. Addendum entered by Nasrin Abdul R.N. 02/25/20 01:18: Patient had continued to loudly moan intermittently and acts as though having electrical shocks going through body. States pain is now 8/[address] Wong was contacted and new orders received. Was given the additional 0.5mg of Dilaudid and now is quiet and appears to be resting comfortably with FLACC of 0. Original Note: Patient is drowsy but oriented. Breath sounds CTA with sat of 100% on oxygen at 3.5L/min; decreased to 2L/min and will continue to titrate as needed. HRR. BP elevated at 160/76 but is currently in pain which could be contributing factor. Initially denied nausea, but after receiving IV Dilaudid now stating she is feeling some nausea but no emesis (too early to give IV Zofran). Having intermittent cramping type pains in abdomen radiating into right shoulder. Had received Percocet at 2343 with minimal improvement so medicated with IV Dilaudid and warm blankets applied to areas of discomfort. After receiving Dilaudid became much more drowsy but still would wake intermittently with loud moaning. Plan will be to contact MD if pain does not diminish or resolve soon. BT present but denies flatus. Steri strips to 4 lap sites on upper abdomen/umbilicus are intact and without drainage/redness. Has not yet voided but denies feeling any indication to urinate at this time. Is able to move self in bed. Gait not assessed. Wearing bilateral calf SCD's. Fall risk score is high and bed alarm is activated.
[2020-02-25] MEDS: HYDROMORPHONE 0.5 MG INJ IV ×5 (00:27→23:31)
[2020-02-25] MEDS: ONDANSETRON 4 MG/2 ML INJ IV (03:09)
[2020-02-25] MEDS: LEVOTHYROXINE 75 MCG TABLET PO (05:59)
[2020-02-25] MEDS: OXYCODONE/ACETAMINOPHEN 5/325 TABLET 1 TAB PO ×2 (06:00→13:21)
[2020-02-25 06:35] LABS: Add Manual Diff / Slide Review NO; Basophils Absolute Auto 0 /uL (0-100); Basophils Percent Auto 0.1 % (0-2); Eosinophils Absolute Auto 0 /uL (0-450); Hematocrit 33.2 % (36-46); Hemoglobin 10.6 g/dL (12.0-16.0); Lymphocytes Absolute Auto 700 /uL (1100-4500); Lymphocytes Percent Auto 3.9 % (25-40); Mean Corpuscular HGB Conc 32.1 % (30-36); Mean Corpuscular Hemoglobin 25.8 PG (26-34); Mean Corpuscular Volume 80.5 fL (80-100); Monocytes Absolute Auto 1400 /uL (0-900); Monocytes Percent Auto 7.3 % (3-14); Neutrophils Absolute Auto 17000 /uL (1500-7000); Neutrophils Percent Auto 88.7 % (50-75); Platelet Count 324 X10^3/uL (150-400); Red Blood Cell Count 4.12 X10^6/uL (4.0-5.2); Red Cell Distribution Width 14.9 % (11.6-14.8); White Blood Cell Count 19.2 X10^3/uL (4.5-11.0)
[2020-02-25 06:45] LABS: Alanine Aminotransferase 112 IU/L (<35); Albumin 3.7 g/dL (3.5-5.0); Albumin Globulin Ratio 1.5 (1.0-2.8); Alkaline Phosphatase 40 U/L (38-126); Aspartate Aminotransferase 126 IU/L (14-36); BUN Creatinine Ratio 16.2 (6-22); Bilirubin Total 0.7 mg/dL (0.2-1.3); Blood Urea Nitrogen 18 mg/dL (7-17); Calcium 9.3 mg/dL (8.4-10.2); Carbon Dioxide 24 mmol/L (22-32); Chloride 101 mmol/L (98-107); Estimated Glomerular Filt Rate 47.3 mL/min (>60); Globulin 2.5 g/dL (1.7-4.1); Glucose 221 mg/dL (80-110); HEMOLYSIS < 15 (0-50); Potassium 4.7 mmol/L (3.4-5.1); Sodium 132 mmol/L (137-145); Total Protein 6.2 g/dL (6.3-8.2)
[2020-02-25] MEDS: levETIRAcetam 250 MG TABLET 1000 MG PO ×2 (09:03→21:08)
[2020-02-25] MEDS: AMLODIPINE 5 MG TABLET PO (09:03)
[2020-02-25] MEDS: lisinopriL 5 MG TABLET PO (09:03)
[2020-02-25] MEDS: PANTOPRAZOLE 40 MG TABLET PO (09:04)
[2020-02-25] MEDS: INSULIN GLARGINE 100 UNIT/ML 3ML PEN 9 UNIT SUBCUT (09:06)
--- NOTE | 2020-02-25 09:30 | CM.DANOTE ---
Addendum entered by Lucinda Lombardi LPN 02/25/20 14:07: Checked in with MARCIN Stewart as pt is still here. She reports that pt has been complaining of increasing pain and no appetite and that she and her partnering RN will be calling Dr. Wong later this afternoon to report symptoms. She states she expects the d/c will likely be cancelled. DCP team will continue to follow tomorrow if pt is still here. Addendum entered by Lucinda Lombardi LPN 02/25/20 11:51: Note interrupted by Team Rounds: to continue: PCP: Jt Saldaña DO Payer: Medicare and [employer]. Admission status: OBS: per UR MARCIN Mendoza Pt confirms that she does live alone but that her son Nuno will be the one who picks her up at d/c. She said she expected he would stay with her if she needed this but she was not anticipating that would be the case. Dr. Wong was just here and has ok'd pt for d/c home today. Will follow prn until pt leaves but at this point no needs for CM dcplanning team are anticipated. Original Note: Discharge Planning/Care Management DCP: assessment: Case received, EMR reviewed and met with pt. Introduced self and role. Pt is an 79 year old female who admitted yesterday afternoon to care [facility] Surgeons: Dr. Wong Discharge Assessment Start: 02/25/20 09:28 Freq: Status: Active Protocol: Document 02/25/20 09:29 ITV (Rec: 02/25/20 09:30 ITV [id number]) Discharge Planning Assessment Advance Directives? No History Provided By Patient,Medical Record Prior Living Arrangements House Household Members none Independent with ADL's Yes Is patient alert and oriented? Yes Transportation Arrangement son Vincent Gabriel will pick pt up at d/c Whiteboard Updated in Patient Room with Yes name and ext. # of Package Line Relief Operator Review Status In Process
[2020-02-25] MEDS: METFORMIN HCL 500 MG TABLET 1000 MG PO (10:51)
--- NOTE | 2020-02-25 11:05 | PM.DS.1 ---
History of Present Illness History of Present Illness Chief complaint: vomiting, abdominal pain since yesterday Narrative: This 79-year-old woman who is seen in evaluation for acute cholecystitis. She developed right upper quadrant/epigastric pain 12 hours ago which has been constant. She normally has biliary colic which resolved spontaneously after about an hour but this pain is not resolved. Associated with nausea and 2 bouts of emesis. Last oral intake was last night. No prior abdominal surgery she has not on anticoagulation. Past medical is significant for a subdural hematoma July 2019 status post craniotomy and she has no major residual defects. No history of coronary artery disease, valvular disease, arrhythmia, peripheral vascular disease, diabetes, pulmonary or renal insufficiency. They are a nonsmoker. Discharge Providers Provider Date of admission: 02/24/20 15:32 Discharge Date: 02/25/20 Primary care physician: Jt Saldaña DO Discharge provider: Tereso Wong MD Summary Hospital Course Discharge Diagnosis: Acute cholecystitis Hospital Course: She underwent a laparoscopic cholecystectomy 02/23 which demonstrated the severely edematous inflamed gallbladder. Postoperatively she had some mild nausea and abdominal pain. She was transition to regular diet her pain improved and is now stable for discharge home. Status at Discharge Cognitive/behavioral status at discharge: oriented Exam Vital Signs (past 8 hours): - 02/25/20 03:19 02/25/20 04:25 02/25/20 06:50 Temperature Pulse Rate Respiratory Rate Blood Pressure Pulse Oximetry 96 99 93 02/25/20 07:30 02/25/20 09:03 02/25/20 09:49 Temperature 99.1 F Pulse Rate 116 H 116 H Respiratory Rate 16 Blood Pressure 149/91 H 149/91 H Pulse Oximetry 98 99 02/25/20 09:50 Temperature Pulse Rate Respiratory Rate Blood Pressure Pulse Oximetry 98 Oxygen Delivery Method Room Air Oxygen Flow Rate 0.5 Narrative Exam Narrative: General elderly female alert and following commands Chest nonlabored respirations Abdomen soft appropriately tender to palpation incisions clean dry intact Objective Labs Result Diagrams: 02/25/20 05:57 02/25/20 05:57 Labs: Laboratory Results - last 24 hr 02/24/20 02/25/20 02/25/20 11:00 05:57 05:57 WBC 19.2 H D RBC 4.12 Hgb 10.6 L Hct 33.2 L MCV 80.5 MCH 25.8 L MCHC 32.1 RDW 14.9 H Plt Count 324 Neut % (Auto) 88.7 H Lymph % (Auto) 3.9 L [place] % (Auto) 7.3 Eos % (Auto) 0.0 L Baso % (Auto) 0.1 Neut # (Auto) 60529 H Lymph # (Auto) 700 L [place] # (Auto) 1400 H Eos # (Auto) 0 Baso # (Auto) 0 Sodium 132 L Potassium 4.7 Chloride 101 Carbon Dioxide 24 BUN 18 H Creatinine 1.11 H Estimated GFR 47.3 L BUN/Creatinine Ratio 16.2 Glucose 221 H Calcium 9.3 Total Bilirubin 0.7 AST 126 H ALT 112 H Alkaline Phosphatase 40 Total Protein 6.2 L Albumin 3.7 Globulin 2.5 Albumin/Globulin Ratio 1.5 COVID-19 PCR Negative Discharge Plan Discharge Plan Patient Disposition: Home Discharge orders & Medications Prescriptions: New oxycodone 5 mg tablet 5 mg PO Q6H PRN (Reason: pain) Qty: 25 RF: 0 acetaminophen [Tylenol] 325 mg capsule 650 mg PO QID PRN (Reason: pain) Qty: 60 RF: 0 Continued (DME) Freestyle Lancets Qty: 100 RF: 3 zoledronic qwvn-jnkjovgj-hlhat [Reclast] 5 mg/100 mL piggyback 5 mg IV ONCE Qty: 100 RF: 0 pantoprazole 40 mg tablet,delayed release (DR/EC) 40 mg PO QDAY Qty: 90 RF: 3 (DME) Glucose: Test Strips See Rx Instructions .Route .MEDSUPPLY Qty: 100 RF: 4 melatonin 1 mg tablet 1 mg PO BEDTIME PRN (Reason: Sleep) RF: 0 lidocaine [Lidoderm] 5 % adhesive patch,medicated 1 patch TOP PRN PRN (Reason: Pain (Scale Score 4-6)) RF: 0 polyethylene glycol 3350 [Miralax] 17 gram powder in packet 17 gram PO PRN PRN (Reason: Constipation) RF: 0 atorvastatin [Lipitor] 20 mg tablet 20 mg PO HS Qty: 90 RF: 3 amlodipine [Norvasc] 2.5 mg tablet 5 mg PO QDAY Qty: 90 RF: 3 levothyroxine [Synthroid] 75 mcg tablet 75 mcg PO QAM Qty: 90 RF: 3 levetiracetam [Keppra] 1,000 mg tablet 1,000 mg PO BID Qty: 180 RF: 1 lisinopril 5 mg tablet 5 mg PO QDAY Qty: 90 RF: 1 (DME) BD Ultra Fine Pen [place] 100 package Qty: 1 RF: 3 metoprolol tartrate 25 mg tablet 25 mg PO BEDTIME Qty: 90 RF: 3 vitamin B complex [B-Complex] Tablet 1 tab PO DAILY RF: 0 Ankush Mag Zinc Plus D3 333 mg-133 unit -133 mg-5 mg Tablet 1 tab PO DAILY RF: 0 metformin 1,000 mg tablet 1,000 mg PO QACLUNCH RF: 0 insulin glargine 100 unit/mL (3 mL) insulin pen 9 unit SUBCUT DAILY RF: 0 Follow up/Referrals: Tereso Wong MD [Physician] - Jt Saldaña DO [Primary Care Provider] - Diet/Activity/Treatments Diet: Low-fat Activity: No lifting >20 lbs x 4 weeks. Walking only for exercise for 4 [address] while taking narcotics. Skin/Wound/Dressing Care Report to your healthcare provider any signs of infection, such as:: chills, fever, increased pain and unusual redness Visit Report/Discharge Packet Instructions: DI for Cholecystectomy Discharge Data Primary Care Provider: Jt Saldaña Quality VTE Deep Vein Thrombosis/Pulmonary Embolism Present on Admission: No
--- NOTE | 2020-02-25 13:36 | PC.NURSE ---
Addendum entered by Herman Singleton R.N. 02/25/20 14:07: Able to ambulate well w/FWW w/no c/o of dizziness. Original Note: Pt c/o of intermittent pain starting in low abdomen and radiating to bilateral shoulders. Pt Pain well controlled w/Percocet.
[2020-02-25] MEDS: SIMETHICONE 80 MG TABLET PO (14:56)
[2020-02-25] MEDS: METOCLOPRAMIDE 10 MG/2 ML INJ IV (14:56)
--- NOTE | 2020-02-25 16:52 | PC.NURSE ---
Addendum entered by Chelsie Oscar R.N. 02/25/20 18:36: Patient is not getting good refief with Percocet, continues to hold abdomen, writhe and groan, so Dilaudid 0.5mg given IV for pain. Within 15 minutes, patient was able to find a position of comfort and is now sleeping peacefully. Original Note: Patient will not discharge tonight due to increased pain. SHe continues to moan and guard her abdomen. Previous shift contacted surgeon to update him, will continue to monitor.
[2020-02-25] MEDS: PIPERACILLIN-TAZO 3.375 GM/50 ML FROZ.PIGGY IV (20:08)
[2020-02-25] MEDS: ATORVASTATIN 20 MG TABLET PO (21:08)
[2020-02-26] VITALS (8 sets, daily range): BP systolic 144–155; BP diastolic 66–79; PULSE 85–101; RESP 14–18; TEMP 36.9–37.6; O2SAT 90–96
--- NOTE | 2020-02-26 00:02 | PC.NURSE ---
Nurse aware of pt. temp.
[2020-02-26] MEDS: SODIUM CHLORIDE 0.9% FLUSH 10 ML IV ×2 (01:56→08:40)
[2020-02-26] MEDS: HYDROMORPHONE 0.5 MG INJ IV ×6 (01:56→16:01)
[2020-02-26] MEDS: SIMETHICONE 80 MG TABLET PO ×2 (02:03→08:37)
[2020-02-26] MEDS: PIPERACILLIN-TAZO 3.375 GM/50 ML FROZ.PIGGY IV ×2 (03:18→12:08)
[2020-02-26] MEDS: LEVOTHYROXINE 75 MCG TABLET PO (05:18)
[2020-02-26 05:56] LABS: Add Manual Diff / Slide Review NO; Basophils Absolute Auto 100 /uL (0-100); Basophils Percent Auto 0.7 % (0-2); Eosinophils Absolute Auto 100 /uL (0-450); Eosinophils Percent Auto 0.4 % (2-4); Hematocrit 30.5 % (36-46); Lymphocytes Absolute Auto 2400 /uL (1100-4500); Lymphocytes Percent Auto 12.9 % (25-40); Mean Corpuscular HGB Conc 32.8 % (30-36); Mean Corpuscular Volume 79.2 fL (80-100); Monocytes Absolute Auto 1300 /uL (0-900); Monocytes Percent Auto 7.2 % (3-14); Neutrophils Absolute Auto 14700 /uL (1500-7000); Neutrophils Percent Auto 78.8 % (50-75); Platelet Count 371 X10^3/uL (150-400); Red Blood Cell Count 3.85 X10^6/uL (4.0-5.2); Red Cell Distribution Width 14.7 % (11.6-14.8); White Blood Cell Count 18.6 X10^3/uL (4.5-11.0)
[2020-02-26 06:07] LABS: Alanine Aminotransferase 104 IU/L (<35); Albumin 3.7 g/dL (3.5-5.0); Albumin Globulin Ratio 1.3 (1.0-2.8); Alkaline Phosphatase 54 U/L (38-126); Aspartate Aminotransferase 70 IU/L (14-36); BUN Creatinine Ratio 14.9 (6-22); Bilirubin Total 1.4 mg/dL (0.2-1.3); Blood Urea Nitrogen 17 mg/dL (7-17); Calcium 9.7 mg/dL (8.4-10.2); Carbon Dioxide 23 mmol/L (22-32); Chloride 98 mmol/L (98-107); Estimated Glomerular Filt Rate 45.9 mL/min (>60); Globulin 2.8 g/dL (1.7-4.1); Glucose 201 mg/dL (80-110); HEMOLYSIS < 15 (0-50); Potassium 4.3 mmol/L (3.4-5.1); Sodium 129 mmol/L (137-145); Total Protein 6.5 g/dL (6.3-8.2)
--- NOTE | 2020-02-26 06:53 | CM.MNRNOTE ---
Pt. reluctant to take Percocet states it did not help my pain yesterday. Requested Dilaudid IVP, medicated with 0.5 mg. x 3 doses this shift. Will report to day RN.
--- NOTE | 2020-02-26 07:50 | DI.CT.S_ITS ---
PROCEDURE: CT ABDOMEN PELVIS W CON INDICATIONS: Abdominal pain following cholecystectomy r/o fluid collection TECHNIQUE: After the administration of oral and intravenous contrast, 5 mm thick sections acquired from the diaphragms to the symphysis. 5 mm thick coronal and sagittal reformats were performed. For radiation dose reduction, the following was used: automated exposure control, adjustment of mA and/or kV according to patient size. COMPARISON: [facility], CT, CT ABDOMEN PELVIS W CON, 02/24/2020, 10:26. FINDINGS: Image quality: Excellent. ABDOMEN: Lung bases: A trace right pleural effusion. Right greater than left bibasilar atelectasis. Heart size is normal. Central pulmonary arteries are seen. No conspicuous filling defect. Small hiatal hernia. Asymmetric elevation of the right hemidiaphragm, unchanged. Solid organs: Liver is normal in size and enhancement. Gallbladder is recently surgically absent. There is a small amount of free fluid in the gallbladder fossa with low to intermediate density. There is a small amount of fluid surrounding the liver which is low density. Biliary system is non-dilated. Pancreas enhances normally. Spleen is normal in size and enhancement. Left adrenal nodule measuring approximately 1.9 x 1.7 cm, (), unchanged a short interval. Kidneys are normal in size and enhancement, without hydronephrosis. Small renal cysts and cortical hypodensities which are too small to further characterize.. Peritoneum and bowel: Stomach, small bowel, and colon loops are normal in caliber and wall thickness. Diverticulosis. No free fluid or air. Nodes and vessels: No retroperitoneal or mesenteric adenopathy. Aorta and inferior vena cava are normal in caliber. Miscellaneous: Postoperative change at the umbilicus likely due to laparoscopy port. PELVIS: Genitourinary: Bladder is unremarkable. Small volume of fluid in the lower abdomen and pelvis. Calcified uterine fibroid. Small enhancing focus in the left ischioanal fossa (), increased in size compared to 02/24/2020. Miscellaneous: No inguinal hernias or adenopathy. Bones: No suspicious bony lesions. No vertebral body compression fractures. IMPRESSION: 1. Small volume of fluid in the gallbladder fossa and surrounding the liver. Small volume of fluid in the pelvis. The clinical significance of this fluid is uncertain. This could be postsurgical fluid. Bile leak is also in the differential diagnosis and could be excluded with HIDA scan if clinically suspected. Hemorrhage is felt to be less likely. 2. Trace right pleural effusion. Bibasilar atelectasis. 3. No biliary ductal dilatation seen. 4. No bowel obstruction. Dictated by: Speedy Santos M.D. on 02/26/2020 at 10:09 Approved by: Speedy Santos M.D. on 02/26/2020 at 10:23
[2020-02-26 08:13] LABS: Procalcitonin 1.34 ng/mL (<0.5)
[2020-02-26] MEDS: INSULIN GLARGINE 100 UNIT/ML 3ML PEN 9 UNIT SUBCUT (08:35)
[2020-02-26] MEDS: PANTOPRAZOLE 40 MG TABLET PO (08:37)
[2020-02-26] MEDS: levETIRAcetam 250 MG TABLET 1000 MG PO (08:37)
[2020-02-26] MEDS: AMLODIPINE 5 MG TABLET PO (08:37)
[2020-02-26] MEDS: lisinopriL 5 MG TABLET PO (08:37)
--- NOTE | 2020-02-26 08:57 | PC.NURSE ---
Addendum entered by Herman Singleton R.N. 02/26/20 15:01: Pt to transfer to [facility] for ERCP. Report to be called at 1515 to RN on 3rd floor for room 315. [phone]. Addendum entered by Herman Singleton R.N. 02/26/20 10:49: Pt c/o of 10/10 abdominal pain that radiates to her bilateral shoulders. Bleching but not passing any flatus. Ambulating w/FWW around unit, pt states walking helps pain minimally. Medicated w/dilaudid w/poor results. Pt returned from CT at 0915 - Discussed plan to transfer to a hospital capable of ERCP to treat possible bile leakage. 1050 - pt currently sleeping soundly. Original Note: 0854 - pt off floor for CT scan
--- NOTE | 2020-02-26 10:09 | PM.PN.1 ---
Subjective Subjective Date Patient Seen: 02/26/20 Time Patient Seen: 10:09 Interval history: Patient continues to feel the uncomfortable today. She says that she has difficulty taking a deep breath as well as some lower abdominal pain. She is still requiring intermittent doses of IV pain medication to control her pain adequately. No nausea vomiting minimal appetite. Exam Vital Signs (past 8 hours): - 02/26/20 05:10 02/26/20 06:00 02/26/20 08:07 Temperature 98.8 F 98.9 F Pulse Rate 98 H 85 Respiratory Rate 16 14 Blood Pressure 150/74 H 155/79 H Pulse Oximetry 93 93 93 02/26/20 08:37 Temperature Pulse Rate 85 Respiratory Rate Blood Pressure 155/79 H Pulse Oximetry Oxygen Delivery Method Room Air Oxygen Flow Rate 0 Narrative Exam Narrative: General elderly woman alert oriented no acute distress Chest nonlabored respirations Abdomen tender lower abdomen as well as right upper quadrant. Objective Labs Result Diagrams: 02/26/20 05:32 02/26/20 05:32 Labs: Laboratory Results - last 24 hr 02/26/20 02/26/20 02/26/20 05:30 05:32 05:32 WBC 18.6 H RBC 3.85 L Hgb 10.0 L Hct 30.5 L MCV 79.2 L MCH 26.0 MCHC 32.8 RDW 14.7 Plt Count 371 Neut % (Auto) 78.8 H Lymph % (Auto) 12.9 L [place] % (Auto) 7.2 Eos % (Auto) 0.4 L Baso % (Auto) 0.7 Neut # (Auto) 33129 H Lymph # (Auto) 2400 [place] # (Auto) 1300 H Eos # (Auto) 100 Baso # (Auto) 100 Sodium 129 L Potassium 4.3 Chloride 98 Carbon Dioxide 23 BUN 17 Creatinine 1.14 H Estimated GFR 45.9 L BUN/Creatinine Ratio 14.9 Glucose 201 H Calcium 9.7 Total Bilirubin 1.4 H AST 70 H ALT 104 H Alkaline Phosphatase 54 Total Protein 6.5 Albumin 3.7 Globulin 2.8 Albumin/Globulin Ratio 1.3 Procalcitonin 1.34 H Assessment & Plan Assessment & Plan narrative: 79-year-old female postoperative day 2 after a laparoscopic cholecystectomy for acute cholecystitis. She is not progressing as expected. Her white blood cell count is elevated at 18 today, bilirubin had been normal yesterday at 0.7 and today it is 1.4. CT abdomen pelvis was obtained this a.m. an official report is pending but per my review demonstrates some fluid around the liver. She did bleed approximately 100 mL during the operation and she was copiously irrigated I am not sure if she has retained hematoma/irrigation or whether she has a bile leak. I discussed these findings with the patient and I told her that my recommendation would be to transfer her to a facility where she can potentially receive ERCP. Her questions have been answered and she is in agreement with this plan. Quality VTE Deep Vein Thrombosis/Pulmonary Embolism Present on Admission: No
--- NOTE | 2020-02-26 10:59 | DI.NM.S_ITS ---
PROCEDURE: NM HIDA NO EJECTION FRACTION RADIOPHARMACEUTICAL: 6.0 mCi Tc-99m mebrofenin IV. INDICATIONS: r/o bile leak TECHNIQUE: Following intravenous administration of Tc-99m mebrofenin, sequential anterior abdominal images were obtained through at least 60 minutes. COMPARISON: None. FINDINGS: There is normal tracer uptake and excretion by the liver. There is non-visualization of intrahepatic ducts, common bile duct, and the gallbladder. There is absence tracer excretion into duodenum. Radiotracer collects in the gallbladder fossa adjacent to the right lobe of liver. IMPRESSION: Findings compatible with biliary leak with pooling of radiotracer in the gallbladder fossa and along the right lobe of the liver. Dictated by: Maris Alvarez MD, PhD on 02/26/2020 at 14:05 Approved by: Maris Alvarez MD, PhD on 02/26/2020 at 14:09
--- NOTE | 2020-02-26 11:01 | DI.US.S_ITS ---
PROCEDURE: US ABDOMEN LIMITED INDICATIONS: PERIHEPATIC FLUID 2 DAYS POST FELICITY TECHNIQUE: Real-time focused scanning was performed of the abdomen, with image documentation. COMPARISON: [facility], , US ABDOMEN LIMITED, 02/24/2020, 12:44. FINDINGS: Limited ultrasound examination of right upper quadrant abdomen shows a small pocket of fluid measures 5.4 x 1.7 x 5.2 cm in size anterior to right lobe of liver. Minimal amount of fluid is noted within gallbladder fossa. Gallbladder is surgically absent. Common bile duct measures up to 5.6 mm in diameter and is within normal limits. IMPRESSION: 1. Small amount of free fluid anterior to right lobe of liver which could represent post surgical seroma. Bile fluid cannot be entirely excluded. 2. Trace amount of fluid within gallbladder fossa likely represent post surgical changes. 3. No biliary ductal dilatation. Dictated by: Beau Cox M.D. on 02/26/2020 at 12:13 Approved by: Beau Cox M.D. on 02/26/2020 at 12:15
--- NOTE | 2020-02-26 14:20 | PC.NURSE ---
Addendum entered by Herman Singleton R.N. 02/26/20 15:31: Report called to [facility] 3rd floor [facility]. Original Note: DI nurse unable to place midline, placed a 20 guage peripheral in LUE.
--- NOTE | 2020-02-26 14:44 | PM.DS.1 ---
History of Present Illness History of Present Illness Chief complaint: vomiting, abdominal pain since yesterday Narrative: This 79-year-old woman who is seen in evaluation for acute cholecystitis. She developed right upper quadrant/epigastric pain 12 hours ago which has been constant. She normally has biliary colic which resolved spontaneously after about an hour but this pain is not resolved. Associated with nausea and 2 bouts of emesis. Last oral intake was last night. No prior abdominal surgery she has not on anticoagulation. Past medical is significant for a subdural hematoma July 2019 status post craniotomy and she has no major residual defects. No history of coronary artery disease, valvular disease, arrhythmia, peripheral vascular disease, diabetes, pulmonary or renal insufficiency. They are a nonsmoker. Discharge Providers Provider Date of admission: 02/24/20 15:32 Discharge Date: 02/26/20 Primary care physician: Jt Saldaña DO Discharge provider: Tereso Wong MD Summary Hospital Course Discharge Diagnosis: Biliary leak Hospital Course: This 79-year-old patient who presented with acute cholecystitis. She was taken to the operating room underwent a laparoscopic cholecystectomy that demonstrated an edematous gallbladder with evidence of acute on chronic cholecystitis. The operation was only otherwise notableable for some bleeding from the cystic artery which required control with a endoloop was will which was placed under direct visualization. Postoperatively patient had more abdominal pain than I would have expected. On postoperative day 1 she was afebrile total bilirubin 0.7, however her white blood cell count elevated to 19. On postoperative day white blood cell count remained 19 however her total bilirubin increased to 1.4. She continued to have abdominal pain as CT abdomen pelvis was performed which demonstrated a small amount of perihepatic fluid and this was followed by a HIDA which demonstrates a bile leak. She remains hemodynamically stable is without nausea vomiting or fever. She will be transferred to [place] for possible ERCP. Status at Discharge Cognitive/behavioral status at discharge: oriented Exam Vital Signs (past 8 hours): - 02/26/20 08:07 02/26/20 08:37 02/26/20 11:42 Temperature 98.9 F Pulse Rate 85 85 Respiratory Rate 14 Blood Pressure 155/79 H 155/79 H Pulse Oximetry 93 96 02/26/20 12:04 Temperature 99.7 F H Pulse Rate 89 Respiratory Rate 16 Blood Pressure 144/70 H Pulse Oximetry 95 Oxygen Delivery Method Room Air Oxygen Flow Rate 0 Narrative Exam Narrative: General elderly female alert oriented no acute distress Chest nonlabored respirations Abdomen tender right upper and right lower quadrant. Extremities warm well perfused Objective Labs Result Diagrams: 02/26/20 05:32 02/26/20 05:32 Labs: Laboratory Results - last 24 hr 02/26/20 02/26/20 02/26/20 05:30 05:32 05:32 WBC 18.6 H RBC 3.85 L Hgb 10.0 L Hct 30.5 L MCV 79.2 L MCH 26.0 MCHC 32.8 RDW 14.7 Plt Count 371 Neut % (Auto) 78.8 H Lymph % (Auto) 12.9 L [place] % (Auto) 7.2 Eos % (Auto) 0.4 L Baso % (Auto) 0.7 Neut # (Auto) 70698 H Lymph # (Auto) 2400 [place] # (Auto) 1300 H Eos # (Auto) 100 Baso # (Auto) 100 Sodium 129 L Potassium 4.3 Chloride 98 Carbon Dioxide 23 BUN 17 Creatinine 1.14 H Estimated GFR 45.9 L BUN/Creatinine Ratio 14.9 Glucose 201 H Calcium 9.7 Total Bilirubin 1.4 H AST 70 H ALT 104 H Alkaline Phosphatase 54 Total Protein 6.5 Albumin 3.7 Globulin 2.8 Albumin/Globulin Ratio 1.3 Procalcitonin 1.34 H Discharge Plan Discharge Plan Patient Disposition: [facility] Diet/Activity/Treatments Diet: Low-fat Activity: No lifting >20 lbs x 4 weeks. Walking only for exercise for 4 weeks[address] while taking narcotics. Visit Report/Discharge Packet Instructions: DI for Cholecystectomy Discharge Data Primary Care Provider: Jt Saldaña Attending Provider: Tereso Wong Admit Date/Time: 02/24/20 15:32 Quality VTE Deep Vein Thrombosis/Pulmonary Embolism Present on Admission: No
== END 2020-02-26 16:00 | disposition short-term general hospital (02) | DRG 357 ==
LOC: ED 13:36 → AC 02-25 07:46
PROVIDERS: Admitting Provider Surgery; Emergency Provider Emergency Medicine; PCP Family Medicine; Referring Provider Emergency Medicine; Visit Provider Surgery
PROC: 0FT44ZZ Resection of Gallbladder, Percutaneous Endoscopic Approach (ICD-10-PCS; CPT 47562; principal; 2020-02-24 15:15)
DX: K91.89 Other postprocedural complications and disorders of digestive system (principal); K81.0 Acute cholecystitis; K81.1 Chronic cholecystitis; I10 Essential (primary) hypertension; E78.5 Hyperlipidemia, unspecified; E03.9 Hypothyroidism, unspecified; E11.9 Type 2 diabetes mellitus without complications; Z79.4 Long term (current) use of insulin; Z87.891 Personal history of nicotine dependence; Z11.59 Encounter for screening for other viral diseases
CPT/HCPCS: 36415; 47562; 74177; 76705; 78226; 80053; 81003; 81015; 82550; 82962; 83690; 84145; 84484; 85025; 86850; 86900; 86901; 87086; 87635; 93005; 94760; 96361; 96365; 96367; 96375; 96376; 99222; 99284; A9537; G0378; J0131; J0330; J1170; J1953; J2405; J2543; J2704; J2765; J3010; Q9967

== ENCOUNTER → 2020-03-28 10:00 | Outpatient (CLI) | payer MEDICARE, OTHER, SELFPAY ==
[2020-02-24 18:55] VITALS: BMI 25.6
--- NOTE | 2020-03-28 | DI.RAD.S_ITS ---
PROCEDURE: XR ABDOMEN MIN 2V INDICATIONS: BILE LEAK POSTOPERATIVE TECHNIQUE: 2 views of the abdomen were acquired. COMPARISON: None. FINDINGS: Surgical changes and devices: Surgical clip projecting in the right upper quadrant. Bowel: No pneumoperitoneum. The bowel gas pattern is normal. Elevation of the right hemidiaphragm Soft tissues: No masses; visualized solid organ contours appear normal in size. No suspicious abdominal calcifications. Bones: Spondylytic changes and facet arthropathy. There is lateral curvature of the spine. IMPRESSION: No bowel obstruction. Dictated by: Warner Lorenzo M.D. on 03/28/2020 at 10:24 Approved by: Warner Lorenzo M.D. on 03/28/2020 at 10:41
== END ==
PROVIDERS: PCP Family Medicine; Referring Provider Internal Medicine Gastroenterology; Visit Provider Internal Medicine Gastroenterology
DX: K91.89 Other postprocedural complications and disorders of digestive system (principal)
CPT/HCPCS: 74019

== ENCOUNTER → 2020-05-11 09:47 | Outpatient (CLI) | payer MEDICARE, OTHER, SELFPAY ==
[2020-02-24 18:55] VITALS: BMI 25.6
[2020-05-13 10:45] LABS: COVID19 Sendout Not Detected (Not Detect)
== END ==
PROVIDERS: PCP Family Medicine; Visit Provider Nurse Practitioner
DX: Z11.59 Encounter for screening for other viral diseases (principal)
CPT/HCPCS: 87635

== ENCOUNTER 2020-05-14 06:31 | Day surgery (SDC) | payer MEDICARE, OTHER, SELFPAY ==
[2020-02-24 18:55] VITALS: BMI 25.6
[2020-05-14] MEDS: PROPARACAINE 0.5% OPHTH SOL 2 DROPS EYE-OP (07:42)
[2020-05-14] MEDS: CATARACT EYE COMPOUND (10 DROPS/SYRINGE) 3 DROPS EYE-OP (07:42)
[2020-05-14 07:47] VITALS: BP 152/69; PULSE 60; RESP 14; TEMP 36.5; O2SAT 100; BMI 25.7
--- NOTE | 2020-05-14 08:45 | P.OP_ITS ---
Operative Date/Time/Diagnoses Pre-op diagnosis: Nuclear cataract right eye Procedure & Clinicians Procedure: Cataract Surgery Same procedure as scheduled: Yes Surgeon: Edi Bills Anesthesia Type: MAC +/- and Sedation Operative Notes Procedure in detail: Patient brought to the operating suite. Tetracaine drops placed in the right eye. Marking instrument was used to renee the vertical and horizontal meridians. Patient was prepped and draped in sterile manner. Wire lid speculum was placed in the eye. Marking instrument was used to renee the 150 degree meridians. Betadine drops were placed on the eye. This was irrigated. Lidocaine jelly was placed on the eye. A paracentesis port was created with a side-port blade. 0.1 mL 1% preservative free lidocaine was injected into the anterior chamber. The anterior chamber was deepened with viscoelastic. 2.6 mm keratome was used to create a temporal clear corneal incision. Cystotome and Utrata forceps were used to create continuous tear capsulorrhexis. Balanced salt solution was used to hydro dissect the nucleus. The phacoemulsification handpiece was inserted and the nucleus was removed using the stop and chop technique. The irrigation aspiration handpiece was inserted and the remaining cortex was removed. Anterior chamber was deepened with viscoelastic. An Christensen MCP695 intraocular lens with a power of 21.5 was injected into the capsular bag. Irrigation aspiration handpiece was inserted and the remaining viscoelastic was removed. The lens was rotated to [id number] degree meridian. Incision was hydrated with balanced salt solution and found to be leak free with pressure with Weck- Liya sponges. 0.1 mL Vigamox injected anterior chamber. 0.3 mL Kenalog 10 mg was injected subconjunctivally. Lid speculum was removed. The patient left the operating room in excellent condition. Complications: none Post-operative Condition: stable Disposition: same day surgery
--- NOTE | 2020-05-14 08:45 | PM.PREOP ---
Pre-operative Note Interval Note History & Physical reviewed/Exam performed by Physician: Yes Changes to H&P: No
[2020-05-14] MEDS: MOXIFLOXACIN INJ 5 MG/ML VIAL EYE-OP (09:11)
[2020-05-14] MEDS: CHONDROIDTIN/SOD HYALURONATE 1.05 ML SYRINGE INTRAOCULA (09:11)
[2020-05-14] MEDS: LIDOCAINE JELLY 2% 5 ML 1 APPLIC TOP (09:11)
[2020-05-14] MEDS: BALANCED SALT IRRIG SOLN NO.2 500 ML, EPINEPHrine 1 MG IRR (09:12)
[2020-05-14] MEDS: TETRACAINE 0.5% OPHTH DROPS 4 ML 2 DROPS EYE-OP (09:12)
[2020-05-14] MEDS: PHENYLEPHRINE/LIDOCAINE VIAL (OR) 0.2 ML EYE-OP (09:12)
[2020-05-14] MEDS: TRIAMCINOLONE 50 MG/5 ML VIAL INJ (09:12)
== END 2020-05-14 10:00 | disposition home or self-care (01) ==
PROVIDERS: PCP Family Medicine; Referring Provider Ophthalmology; Visit Provider Ophthalmology
PROC: (CPT 66984; principal; 2020-05-14 08:45)
DX: H25.11 Age-related nuclear cataract, right eye (principal); E11.9 Type 2 diabetes mellitus without complications; K21.9 Gastro-esophageal reflux disease without esophagitis; I10 Essential (primary) hypertension; R56.9 Unspecified convulsions; Z79.84 Long term (current) use of oral hypoglycemic drugs
CPT/HCPCS: 66984; J0171; J2250; J3301; V2787

== ENCOUNTER → 2020-05-25 08:44 | Outpatient (CLI) | payer MEDICARE, OTHER, SELFPAY ==
[2020-02-24 18:55] VITALS: BMI 25.6
[2020-05-27 09:07] LABS: COVID19 Sendout Not Detected (Not Detect)
== END ==
PROVIDERS: PCP Family Medicine; Visit Provider Nurse Practitioner
DX: Z11.59 Encounter for screening for other viral diseases (principal)
CPT/HCPCS: 87635

== ENCOUNTER 2020-05-28 06:52 | Day surgery (SDC) | payer MEDICARE, OTHER, SELFPAY ==
[2020-02-24 18:55] VITALS: BMI 25.6
[2020-05-28] MEDS: PROPARACAINE 0.5% OPHTH SOL 2 DROPS EYE-OP (07:12)
[2020-05-28] MEDS: CATARACT EYE COMPOUND (10 DROPS/SYRINGE) 3 DROPS EYE-OP (07:17)
[2020-05-28 07:18] VITALS: BMI 25.9
[2020-05-28 07:31] VITALS: BP 157/65; PULSE 60; RESP 14; TEMP 36.6; O2SAT 100
--- NOTE | 2020-05-28 08:11 | P.OP_ITS ---
Operative Date/Time/Diagnoses Pre-op diagnosis: Nuclear Cataract Left eye Post-op diagnosis: same Procedure & Clinicians Same procedure as scheduled: Yes Surgeon: Edi Bills Anesthesia Type: MAC +/- and Sedation Operative Notes Procedure in detail: Patient brought to the operating suite. Tetracaine drops placed in the left eye. Marking instrument was used to renee the vertical and horizontal meridians. Patient was prepped and draped in sterile manner. Wire lid speculum was placed in the eye. Marking instrument was used to renee the 30 degree meridian. Betadine drops were placed on the eye. This was irrigated. Lidocaine jelly was placed on the eye. A paracentesis port was created with a side-port blade. 0.1 mL 1% preservative free lidocaine was injected into the anterior chamber. The anterior chamber was deepened with viscoelastic. 2.6 mm keratome was used to create a temporal clear corneal incision. Cystotome and Utrata forceps were used to create continuous tear capsulorrhexis. Balanced salt solution was used to hydro dissect the nucleus. The phacoemulsification handpiece was inserted and the nucleus was removed using the stop and chop te chnique. The irrigation aspiration handpiece was inserted and the remaining cortex was removed. Anterior chamber was deepened with viscoelastic. An Christensen [id number] intraocular lens with a power of 22.0 was injected into the capsular bag. Irrigation aspiration handpiece was inserted and the remaining viscoelastic was removed. The lens was rotated to the 30 degree meridian. Incision was hydrated with balanced salt solution and found to be leak free with pressure with Weck- Liya sponges. 0.1 mL Vigamox injected anterior chamber. 0.3 mL Kenalog 10 mg was injected subconjunctivally. Lid speculum was removed. The patient left the operating room in excellent condition. Complications: none Post-operative Condition: stable Disposition: same day surgery
--- NOTE | 2020-05-28 08:11 | PM.PREOP ---
Pre-operative Note Interval Note History & Physical reviewed/Exam performed by Physician: Yes Changes to H&P: No
[2020-05-28] MEDS: PHENYLEPHRINE/LIDOCAINE VIAL (OR) 0.2 ML EYE-OP (08:33)
[2020-05-28] MEDS: MOXIFLOXACIN INJ 5 MG/ML VIAL EYE-OP (08:33)
[2020-05-28] MEDS: CHONDROIDTIN/SOD HYALURONATE 1.05 ML SYRINGE INTRAOCULA (08:34)
[2020-05-28] MEDS: BALANCED SALT IRRIG SOLN NO.2 500 ML, EPINEPHrine 1 MG IRR (08:34)
[2020-05-28] MEDS: LIDOCAINE JELLY 2% 5 ML 1 APPLIC TOP (08:34)
[2020-05-28] MEDS: TETRACAINE 0.5% OPHTH DROPS 4 ML 2 DROPS EYE-OP (08:34)
[2020-05-28] MEDS: TRIAMCINOLONE 50 MG/5 ML VIAL INJ (08:34)
[2020-05-28 08:44] VITALS: BP 132/64; PULSE 58; RESP 14; TEMP 36.6; O2SAT 99
== END 2020-05-28 08:57 | disposition home or self-care (01) ==
PROVIDERS: PCP Family Medicine; Referring Provider Ophthalmology; Visit Provider Ophthalmology
PROC: (CPT 66984; principal; 2020-05-28 08:15)
DX: H25.12 Age-related nuclear cataract, left eye (principal); E11.9 Type 2 diabetes mellitus without complications; K21.9 Gastro-esophageal reflux disease without esophagitis; I10 Essential (primary) hypertension; Z79.84 Long term (current) use of oral hypoglycemic drugs
CPT/HCPCS: 66984; J0171; J2250; J3301; V2787

== ENCOUNTER → 2021-01-20 08:35 | Outpatient (CLI) | payer MEDICARE, OTHER, SELFPAY ==
[2020-02-24 18:55] VITALS: BMI 25.6
[2021-01-20 09:39] LABS: Hemoglobin A1C% w Est Avg Glu 7.3 % (4.0-6.0)
[2021-01-20 09:45] LABS: Alanine Aminotransferase 12 IU/L (<35); Albumin 3.8 g/dL (3.5-5.0); Albumin Globulin Ratio 1.4 (1.0-2.8); Alkaline Phosphatase 47 U/L (38-126); Aspartate Aminotransferase 19 IU/L (14-36); BUN Creatinine Ratio 18.7 (6-22); Bilirubin Total 0.3 mg/dL (0.2-1.3); Blood Urea Nitrogen 23 mg/dL (7-17); Calcium 10.4 mg/dL (8.4-10.2); Carbon Dioxide 28 mmol/L (22-32); Chloride 104 mmol/L (98-107); Cholesterol 297 mg/dL (140-199); Estimated Glomerular Filt Rate 41.9 mL/min (>60); Globulin 2.7 g/dL (1.7-4.1); Glucose 108 mg/dL (80-110); HDL Cholesterol 62 mg/dL (40-60); HEMOLYSIS < 15 (0-50); LDL Cholesterol Calculated 185 mg/dL (<100); Sodium 136 mmol/L (137-145); Total Protein 6.5 g/dL (6.3-8.2); Triglycerides 251 mg/dL (35-150)
[2021-01-20 09:46] LABS: Potassium 5.5 mmol/L (3.4-5.1)
[2021-01-20 09:58] LABS: Creatinine Urine Random 172.9 mg/dL
[2021-01-20 10:02] LABS: Microalbumi Creatinin Ratio Ur 18.5 ug/mg CR (<30); Microalbumin Urine Random 3.2 mg/dL (0-1.6)
[2021-01-20 10:12] LABS: TSH w/ Reflex to FT4 1.72 uIU/mL (0.47-4.68)
== END ==
PROVIDERS: PCP Family Medicine; Referring Provider Family Medicine; Visit Provider Family Medicine
DX: E03.9 Hypothyroidism, unspecified (principal); E11.65 Type 2 diabetes mellitus with hyperglycemia; E78.5 Hyperlipidemia, unspecified; I10 Essential (primary) hypertension
CPT/HCPCS: 36415; 80053; 80061; 82043; 82570; 83036; 84443

== ENCOUNTER → 2021-01-28 10:48 | Outpatient (CLI) | payer MEDICARE, OTHER, SELFPAY ==
[2020-02-24 18:55] VITALS: BMI 25.6
[2021-01-28 12:19] LABS: Alanine Aminotransferase 12 IU/L (<35); Albumin Globulin Ratio 1.5 (1.0-2.8); Alkaline Phosphatase 45 U/L (38-126); Aspartate Aminotransferase 21 IU/L (14-36); BUN Creatinine Ratio 21.4 (6-22); Bilirubin Total 0.2 mg/dL (0.2-1.3); Blood Urea Nitrogen 24 mg/dL (7-17); Calcium 9.8 mg/dL (8.4-10.2); Carbon Dioxide 26 mmol/L (22-32); Chloride 102 mmol/L (98-107); Estimated Glomerular Filt Rate 46.7 mL/min (>60); Globulin 2.7 g/dL (1.7-4.1); Glucose 174 mg/dL (80-110); HEMOLYSIS < 15 (0-50); Sodium 134 mmol/L (137-145); Total Protein 6.7 g/dL (6.3-8.2)
== END ==
PROVIDERS: PCP Family Medicine; Referring Provider Family Medicine; Visit Provider Family Medicine
DX: E87.5 Hyperkalemia (principal)
CPT/HCPCS: 36415; 80053

== ENCOUNTER → 2021-09-23 09:16 | Outpatient (CLI) | payer MEDICARE, OTHER, SELFPAY ==
[2020-02-24 18:55] VITALS: BMI 25.6
[2021-09-23 11:27] LABS: Add Manual Diff / Slide Review NO; Basophils Absolute Auto 100 /uL (0-100); Eosinophils Absolute Auto 300 /uL (0-450); Eosinophils Percent Auto 5.6 % (2-4); Hematocrit 32.6 % (36-46); Hemoglobin 10.5 g/dL (12.0-16.0); Lymphocytes Absolute Auto 1800 /uL (1100-4500); Mean Corpuscular HGB Conc 32.2 % (30-36); Mean Corpuscular Hemoglobin 24.9 PG (26-34); Mean Corpuscular Volume 77.5 fL (80-100); Monocytes Absolute Auto 400 /uL (0-900); Monocytes Percent Auto 7.4 % (3-14); Neutrophils Absolute Auto 3000 /uL (1500-7000); Platelet Count 353 X10^3/uL (150-400); Red Cell Distribution Width 14.6 % (11.6-14.8); White Blood Cell Count 5.5 X10^3/uL (4.5-11.0)
[2021-09-23 11:45] LABS: Hemoglobin A1C% w Est Avg Glu 7.1 % (4.0-6.0)
[2021-09-23 12:11] LABS: Alanine Aminotransferase 11 IU/L (<35); Albumin 4.1 g/dL (3.5-5.0); Albumin Globulin Ratio 1.6 (1.0-2.8); Alkaline Phosphatase 38 U/L (38-126); Aspartate Aminotransferase 18 IU/L (14-36); BUN Creatinine Ratio 16.2 (6-22); Bilirubin Total 0.5 mg/dL (0.2-1.3); Blood Urea Nitrogen 21 mg/dL (7-17); Calcium 10.1 mg/dL (8.4-10.2); Carbon Dioxide 27 mmol/L (22-32); Chloride 102 mmol/L (98-107); Cholesterol 170 mg/dL (140-199); Estimated Glomerular Filt Rate 39.2 mL/min (>60); Globulin 2.5 g/dL (1.7-4.1); Glucose 112 mg/dL (80-110); HDL Cholesterol 57 mg/dL (40-60); HEMOLYSIS < 15 (0-50); LDL Cholesterol Calculated 84 mg/dL (<100); Potassium 4.9 mmol/L (3.4-5.1); Sodium 136 mmol/L (137-145); Total Protein 6.6 g/dL (6.3-8.2); Triglycerides 143 mg/dL (35-150)
[2021-09-23 12:18] LABS: Free T4, Direct Thyroxine 1.28 ng/dL (0.78-2.19)
== END ==
PROVIDERS: PCP Family Medicine; Referring Provider Family Medicine; Visit Provider Family Medicine
DX: I10 Essential (primary) hypertension (principal); E78.5 Hyperlipidemia, unspecified; N28.9 Disorder of kidney and ureter, unspecified; E03.9 Hypothyroidism, unspecified; E11.65 Type 2 diabetes mellitus with hyperglycemia
CPT/HCPCS: 36415; 80053; 80061; 83036; 84439; 84443; 85025

== ENCOUNTER → 2021-10-07 11:35 | Outpatient (CLI) | payer MEDICARE, OTHER, SELFPAY ==
[2020-02-24 18:55] VITALS: BMI 25.6
--- NOTE | 2021-10-07 11:36 | DI.RAD.S_ITS ---
PROCEDURE: XR LUMBAR SPINE 2-3V INDICATIONS: Progressive low back pain TECHNIQUE: 2 views of the lumbar spine were acquired. COMPARISON: [facility], , L-SPINE 2-3 VIEWS, 09/21/2017, 12:48. FINDINGS: Bones: 5 [id number]-[id number] vertebrae are present. There is mild grade 1 retrolisthesis of L2 on L3. Multilevel disc space narrowing and endplate osteophyte formation. Facet hypertrophy throughout the mid and lower lumbar spine. No vertebral body compression fractures. No suspicious bony lesions. Soft tissues: Overlying bowel gas pattern is normal. No suspicious soft tissue calcifications. IMPRESSION: Multilevel degenerative disc and facet disease. No acute fracture. No osseous lesion. If symptoms and/or clinical suspicion for pathology persist, further assessment with repeat, or advanced imaging (e.g., CT, MRI, or bone scan) may be helpful for further assessment. Dictated by: Yuliet Wild M.D. on 10/07/2021 at 14:12 Approved by: Yuliet Wild M.D. on 10/07/2021 at 14:13
== END ==
PROVIDERS: PCP Family Medicine; Referring Provider Family Medicine; Visit Provider Family Medicine
DX: M51.36 Other intervertebral disc degeneration, lumbar region (principal); M54.50 Low back pain, unspecified; N28.9 Disorder of kidney and ureter, unspecified; I10 Essential (primary) hypertension; E78.5 Hyperlipidemia, unspecified; E03.9 Hypothyroidism, unspecified
CPT/HCPCS: 72100

== ENCOUNTER → 2021-11-19 11:19 | Outpatient (CLI) | payer MEDICARE, OTHER, SELFPAY ==
[2020-02-24 18:55] VITALS: BMI 25.6
--- NOTE | 2021-11-19 12:00 | DI.MG.S_ITS ---
JOSE WEINSTEIN date: 1940 Sex: F Attending Physician: Piotr Date: 11/19/2021 11:56 At the request of: ERVIN ALANIS Procedure: MM screening mammo BI BILATERAL DIGITAL SCREENING MAMMOGRAM 3D/2D WITH CAD: 11/19/2021 CLINICAL: Routine screening. Comparison is made to exams dated: 02/01/2019 mammogram, 06/07/2017 mammogram, and 12/25/2014 mammogram - [facility]. There are scattered fibroglandular elements in both breasts. Current study was also evaluated with a Computer Aided Detection (CAD) system. No significant masses, calcifications, or other findings are seen in either breast. There has been no significant interval change. IMPRESSION: NEGATIVE There is no mammographic evidence of malignancy. A 1 year screening mammogram is recommended. This exam was interpreted at Station ID: [id number]. NOTE: For mammograms, a report in lay terms will be sent to the patient. Approximately 15% of breast malignancies will not be visualized mammographically. In the management of a palpable breast mass, a negative mammogram must not discourage biopsy of a clinically suspicious lesion. Electronically Signed By: Nara palma/jerome:11/24/2021 16:58:47 letter sent: Normal Exam ACR BI-RADS Category 1: Negative [id number]
== END ==
PROVIDERS: PCP Family Medicine; Referring Provider Family Medicine; Visit Provider Family Medicine
DX: Z12.31 Encounter for screening mammogram for malignant neoplasm of breast (principal); Z13.820 Encounter for screening for osteoporosis; M85.89 Other specified disorders of bone density and structure, multiple sites; Z78.0 Asymptomatic menopausal state
CPT/HCPCS: 77063; 77067; 77080

== ENCOUNTER → 2022-04-01 08:36 | Outpatient (CLI) | payer MEDICARE, OTHER, SELFPAY ==
[2020-02-24 18:55] VITALS: BMI 25.6
[2022-04-01 10:18] LABS: Alanine Aminotransferase 12 IU/L (<35); Albumin 3.9 g/dL (3.5-5.0); Albumin Globulin Ratio 1.7 (1.0-2.8); Alkaline Phosphatase 41 U/L (38-126); Aspartate Aminotransferase 19 IU/L (14-36); BUN Creatinine Ratio 15.6 (6-22); Bilirubin Total 0.3 mg/dL (0.2-1.3); Blood Urea Nitrogen 19 mg/dL (7-17); Calcium 9.7 mg/dL (8.4-10.2); Carbon Dioxide 27 mmol/L (22-32); Chloride 103 mmol/L (98-107); Estimated Glomerular Filt Rate 44 mL/min (>60); Globulin 2.3 g/dL (1.7-4.1); Glucose 113 mg/dL (80-110); HEMOLYSIS < 15 (0-50); Potassium 4.7 mmol/L (3.4-5.1); Sodium 136 mmol/L (137-145); Total Protein 6.2 g/dL (6.3-8.2)
[2022-04-01 10:20] LABS: Hemoglobin A1C% w Est Avg Glu 6.8 % (4.0-6.0)
[2022-04-01 11:24] LABS: Creatinine Urine Random 142.5 mg/dL; Microalbumi Creatinin Ratio Ur 25.9 ug/mg CR (<30); Microalbumin Urine Random 3.7 mg/dL (0-1.6)
== END ==
PROVIDERS: PCP Family Medicine; Referring Provider Family Medicine; Visit Provider Family Medicine
DX: N28.9 Disorder of kidney and ureter, unspecified (principal); E11.65 Type 2 diabetes mellitus with hyperglycemia
CPT/HCPCS: 36415; 80053; 82043; 82570; 83036

== ENCOUNTER → 2022-04-16 12:00 | Outpatient (CLI) | payer MEDICARE, OTHER, SELFPAY ==
[2020-02-24 18:55] VITALS: BMI 25.6
--- NOTE | 2022-04-16 12:02 | DI.RAD.S_ITS ---
PROCEDURE: XR KNEE LT 3V INDICATIONS: Progressive left knee pain with swelling TECHNIQUE: 3 views of the knee were acquired. COMPARISON: [facility], , KNEE 1-2 VIEWS RIGHT, 10/12/2008, 11:05. FINDINGS: Bones: There is severe left medial compartment femorotibial joint space narrowing. There are tricompartmental osteophytes. Soft tissues: There is a moderate knee joint effusion. IMPRESSION: Severe left knee osteoarthritis and joint effusion. Dictated by: Nara Hayes M.D. on 04/16/2022 at 15:04 Approved by: Nara Hayes M.D. on 04/16/2022 at 15:05
== END ==
PROVIDERS: PCP Family Medicine; Referring Provider Family Medicine; Visit Provider Family Medicine
DX: M17.12 Unilateral primary osteoarthritis, left knee (principal); M25.462 Effusion, left knee; M25.562 Pain in left knee
CPT/HCPCS: 73562

== ENCOUNTER → 2022-08-05 08:55 | Outpatient (CLI) | payer MEDICARE, OTHER, SELFPAY ==
[2020-02-24 18:55] VITALS: BMI 25.6
[2022-08-05 11:11] LABS: Add Manual Diff / Slide Review NO; Basophils Absolute Auto 100 /uL (0-100); Basophils Percent Auto 0.7 % (0-2); Eosinophils Absolute Auto 700 /uL (0-450); Eosinophils Percent Auto 6.8 % (2-4); Hematocrit 34.3 % (36-46); Hemoglobin 11.3 g/dL (12.0-16.0); Lymphocytes Absolute Auto 2500 /uL (1100-4500); Lymphocytes Percent Auto 23.4 % (25-40); Mean Corpuscular HGB Conc 32.9 % (30-36); Mean Corpuscular Hemoglobin 26.1 PG (26-34); Mean Corpuscular Volume 79.2 fL (80-100); Monocytes Absolute Auto 600 /uL (0-900); Monocytes Percent Auto 5.8 % (3-14); Neutrophils Absolute Auto 6600 /uL (1500-7000); Neutrophils Percent Auto 63.3 % (50-75); Platelet Count 392 X10^3/uL (150-400); Red Blood Cell Count 4.33 X10^6/uL (4.0-5.2); Red Cell Distribution Width 14.9 % (11.6-14.8); White Blood Cell Count 10.5 X10^3/uL (4.5-11.0)
[2022-08-05 11:43] LABS: Blood Urea Nitrogen 20 mg/dL (7-17); Calcium 10.5 mg/dL (8.4-10.2); Carbon Dioxide 27 mmol/L (22-32); Chloride 101 mmol/L (98-107); Estimated Glomerular Filt Rate 43 mL/min (>60); Glucose 117 mg/dL (80-110); HEMOLYSIS < 15 (0-50); Sodium 138 mmol/L (137-145)
[2022-08-05 11:54] LABS: Appearance Urine UA CLEAR; Bilirubin Urine UA NEGATIVE (NEGATIVE); Color Urine UA YELLOW; Glucose Urine UA TRACE g/dL (Negative); Ketones Urine UA TRACE (NEGATIVE); Leukocyte Esterase Urine UA 1+ (NEGATIVE); Nitrite Urine UA NEGATIVE (Negative); Occult Blood Urine UA NEGATIVE (Negative); Protein Urine UA 2+ (Negative); Specific Gravity Urine UA 1.025 (1.000-1.035); Urobilinogen Urine UA 0.2 E.U./dL (0.2)
[2022-08-05 12:10] LABS: Bacteria Urine None Seen; Culture Indicated Urine Specimen Cultured; RBC Urine None Seen (0-5/HPF); Squamous Epithelial Cell Urine 0-1 /HPF (0-5/HPF); WBC Urine 1-5/HPF (0-5/HPF)
== END ==
PROVIDERS: PCP Family Medicine; Referring Provider Orthopaedic Surgery; Visit Provider Orthopaedic Surgery
DX: Z01.812 Encounter for preprocedural laboratory examination (principal); Z01.818 Encounter for other preprocedural examination; R73.9 Hyperglycemia, unspecified; N39.0 Urinary tract infection, site not specified
CPT/HCPCS: 36415; 80048; 81001; 83036; 85025; 87086; 93005; 93010

== ENCOUNTER → 2022-09-14 10:15 | Outpatient (CLI) | payer MEDICARE, OTHER, SELFPAY ==
[2020-02-24 18:55] VITALS: BMI 25.6
[2022-09-14 10:59] LABS: COVID19 -Nasal RAPID Negative (Negative)
== END ==
PROVIDERS: PCP Family Medicine; Referring Provider Orthopaedic Surgery; Visit Provider Orthopaedic Surgery
DX: Z20.822 Contact with and (suspected) exposure to COVID-19 (principal)
CPT/HCPCS: 87635; C9803

== ENCOUNTER 2022-09-16 10:30 | Observation (INO) | payer MEDICARE, OTHER, SELFPAY ==
[2020-02-24 18:55] VITALS: BMI 25.6
[2022-09-02 13:47] VITALS: BMI 28.0
[2022-09-15] VITALS (11 sets, daily range): BP systolic 120–146; BP diastolic 49–64; PULSE 69–89; RESP 11–18; TEMP 36–36.5; O2SAT 94–99; BMI 27.2
--- NOTE | 2022-09-15 06:00 | DI.RAD.S_ITS ---
PROCEDURE: XR KNEE LT 1TO2V INDICATIONS: prosthesis placement TECHNIQUE: 2 view(s) of the knee acquired. COMPARISON: [facility], CR, XR KNEE LT 3V, 04/16/2022, 12:13. FINDINGS: Bones: Patient is status post knee joint arthroplasty. Hardware components are in expected positions. Visualized bony structures are intact. Soft tissues: Overlying postoperative changes are noted. IMPRESSION: Expected postoperative appearance of the left knee arthroplasty. Dictated by: Speedy Santos M.D. on 09/16/2022 at 8:58 Approved by: Speedy Santos M.D. on 09/16/2022 at 8:59
[2022-09-15] MEDS: PREGABALIN 75 MG CAPSULE PO (12:12)
[2022-09-15] MEDS: ACETAMINOPHEN 325 MG TABLET 975 MG PO (12:13)
[2022-09-15] MEDS: CELECOXIB 200 MG CAPSULE PO (12:13)
[2022-09-15] MEDS: VANCOMYCIN 1,000 MG/200 ML PIGGYBACK 200 MG IV (12:14)
[2022-09-15] MEDS: LACTATED RINGERS 1,000 ML 84 ML IV (12:15)
[2022-09-15] MEDS: CEFAZOLIN 2 GM/100 ML PREMIX 100 ML IV ×2 (14:20→22:17)
[2022-09-15] MEDS: TRANEXAMIC ACID 1,000 MG VIAL 1000 MG INJ ×2 (14:40→16:06)
--- NOTE | 2022-09-15 14:47 | SUR.OPER ---
Supine on padded OR bed. Pillow under head, arms secured on padded armboards <90 degree abduction. Safety belt across torso. Non-operative leg secured with tape over blanket over lower leg. Operative leg secured in DeMayo/Adithya/Nathe positioner. Foam padded brace at thigh of operative leg.
[2022-09-15] MEDS: BUPIVACAINE LIPOSOME 266 MG/20 ML VIAL INJ (14:53)
[2022-09-15] MEDS: BUPIVACAINE 0.5% W/ EPI (PF) 30 ML VIAL INJ (14:54)
--- NOTE | 2022-09-15 16:18 | PM.OP.1 ---
Operative Date/Time/Diagnoses Date of procedure: 09/15/22 Time of procedure: 14:00 Pre-op diagnosis: left knee OA Post-op diagnosis: same Procedure & Clinicians Procedure: left total knee arthroplasty Same procedure as scheduled: Yes Indications: The patient has had progressively worsening left knee pain with radiographic changes consistent with arthritis. Non-operative management has failed and the patient has requested total knee replacement. The risks, benefits and alternatives to surgery were discussed with the patient prior to proceeding. Risks discussed included, but were not limited to, failure to relieve pain, stiffness, infection, nerve damage, deep venous thrombosis, pulmonary embolism, stroke, coma, heart attack, permanent paralysis and , as well as the potential need for eventual revision of the prosthetic. Surgeon: Sara Jorgensen Varnish Maker Helper: Leonie Martin Anesthesia Type: General and Spinal Operative Notes Findings: Severe left knee osteoarthritis, adequate stability and range of motion Closure Type: primary Specimen(s): none sent Prosthetic devices, grafts, tissues, transplants, or devices: [facility] 2 size 4 femur, size 3 tibia, +10 poly, 35 x 9 mm patella Estimated Blood Loss (mL): 150 Blood products transfused: none Tourniquet time (min): 73 Procedure in detail: The patient was seen in the pre-operative area, where the patient identified the left knee as the operative site and this was marked with my initials. The patient received pre-operative antibiotics, and was taken to the operating room and placed on the operative table in the supine position. After satisfactory anesthesia, a multimedia designer out was performed. The left leg was encircled with a tourniquet about the proximal thigh, and the leg was prepared from the toes to the tourniquet with ChloroPrep in the usual fashion and draped through sterile drapes. The leg was elevated and exsanguinated with Eschmark bandage and the tourniquet inflated to [250] mmHg pressure. The knee was approached through an approximately 18 cm incision centered over the patella and carried into the knee through a medial parapatellar arthrotomy. A portion of the medial and lateral meniscus was resected. Soft tissue was carefully mobilized around the patella the patella was measured with a caliper. Bone was resected from the patella and the patellar height was reconstituted with up an appropriate sized patellar component. A cover was then placed on the patella. A small amount of additional medial and lateral meniscus was resected. The distal femur was cut at 5?. A [+2] cut was used. It looked like an appropriate distal femoral cut and the cut was made without difficulty. An extramedullary guide was used for the tibial cut. 10 mm was resected off the least affected side.The tibia was prepared. The rotation was assessed. The patient was placed in extension residual medial and lateral meniscus as well as any residual bone was carefully resected. [No] additional tibia was resected. Hemostasis was achieved especially posteriorly. Additional local was injected into the posterior capsule. The extension gap was assessed and additional releases for gap balancing were performed as necessary. It was checked with the gap telesales supervisor. The femoral component was trial was placed and the notch was finished. The rotation was assessed and the appropriate size femoral guide was placed on the distal femur and finishing cuts were made. There was no evidence of notching. The anterior, posterior and chamfer cuts were then made. The posterior osteophytes and soft tissues were then removed. The posterior capsule was injected with part of a mixture of 60 ml 0.25% Marcaine mixed with 20 ml Exparel for post operative pain control. The remainder of this mixture was injected into the capsule and subcutaneous tissues during cement curing. The tibial and femoral components were then placed and the knee placed through a range of motion. Range of motion was [0-130], with good stability throughout the range. The trials were then removed, and the tibia was finished. The bone was prepared with pulsatile lavage, and dried with a sponge. Cement was applied and the final prosthetics placed. Excess cement was removed during and after cement curing. A brief Betadine soak was performed. After confirming there was no extruded cement posteriorly, the final tibial insert was placed. The knee was copiously irrigated and the tourniquet deflated. Hemostasis was obtained with the Bovie cautery. A drain was placed and brought out superolaterally. The capsule was closed with interrupted nonabsorbable suture. The subcutaneous layer was closed with barbed sutures, and the skin with a running 3-0 V-Lock suture and Surgical glue. An Aquacel Ag dressing was applied and the patient was taken to recovery having tolerated the procedure well. Complications: none Post-operative Condition: stable Disposition: Acute Care Plan for aftercare: The patient will be maintained on a standard total knee replacement protocol with weight bearing as tolerated. The patient will receive aspirin and sequential compression devices for DVT prophylaxis. The patient will be discharged home when safe for the home environment.
[2022-09-15] MEDS: ACETAMINOPHEN 325 MG TABLET 650 MG PO (17:36)
[2022-09-15] MEDS: IBUPROFEN 400 MG TABLET PO ×2 (17:37→22:19)
[2022-09-15] MEDS: LACTATED RINGERS 1,000 ML 100 ML IV (17:37)
[2022-09-15] MEDS: DOCUSATE 100 MG CAPSULE PO (22:18)
[2022-09-15] MEDS: levETIRAcetam 250 MG TABLET 750 MG PO (22:18)
[2022-09-15] MEDS: ASPIRIN EC 81 MG TABLET PO (22:18)
[2022-09-15] MEDS: ATORVASTATIN 20 MG TABLET 10 MG PO (22:18)
[2022-09-15] MEDS: METFORMIN HCL 500 MG TABLET PO (22:19)
[2022-09-15] MEDS: METOPROLOL IR 25 MG TABLET PO (22:19)
[2022-09-15] MEDS: INSULIN GLARGINE 100 UNIT/ML 3ML PEN 9 UNIT SUBCUT (22:26)
[2022-09-16] MEDS: ACETAMINOPHEN 325 MG TABLET 650 MG PO ×3 (01:30→11:39)
[2022-09-16] MEDS: IBUPROFEN 400 MG TABLET PO ×3 (01:30→08:49)
[2022-09-16 01:40] VITALS: BP 121/45; PULSE 74; RESP 17; TEMP 36.1; O2SAT 97
[2022-09-16 02:10] VITALS: BP 118/66
[2022-09-16] MEDS: LIDOCAINE PATCH 1 EACH ADH..PATCH TOP (03:55)
[2022-09-16] MEDS: ONDANSETRON 4 MG/2 ML INJ IV (03:55)
[2022-09-16] MEDS: OXYCODONE IR 5 MG TABLET PO ×3 (03:55→11:43)
[2022-09-16] MEDS: CEFAZOLIN 2 GM/100 ML PREMIX 100 ML IV (05:39)
[2022-09-16] MEDS: LEVOTHYROXINE 75 MCG TABLET PO (05:41)
[2022-09-16 06:00] VITALS: BP 105/44; PULSE 54; RESP 17; TEMP 36.3; O2SAT 95
[2022-09-16] MEDS: PANTOPRAZOLE DR 40 MG TABLET PO (06:23)
[2022-09-16 06:26] LABS: Hemoglobin 9.7 g/dL (12.0-16.0)
--- NOTE | 2022-09-16 08:25 | P.DS_ITS ---
History of Present Illness History of Present Illness Date Patient Seen: 09/16/22 Time Patient Seen: 08:25 Chief complaint: TKA *OPB* Narrative: Patient is complaining of [id number] left knee pain this morning. She is having some mild postoperative nausea and vomiting. She denies any numbness or tingling. No dizziness or lightheadedness when getting up to use the restroom this morning. She is not worked with physical therapy yet. Overall she is feeling well and would like to be discharged home today. Discharge Providers Provider Discharge Date: 09/16/22 Primary care physician: Jt Saldaña DO Consults: 09/02/22 14:50 Consult to Anesthesiology Routine Comment: Consulting Provider: Anesthesiologist Reason for consultation: Surgeon requested re: Multiple medical issues Consult to Pig Casting Machine Operator Routine Comment: Lives alone, no available help after surgery. 09/15/22 06:00 Consult to Anesthesiology Routine Comment: Consulting Provider: Anesthesiologist Reason for consultation: Regional block for post operative pain control 09/15/22 16:54 Consult to Discharge Planning Routine Comment: Consult to Physical Therapy Evaluate & Treat Comment: Physician Instructions: postop TKA protocol Discharge provider: Leonie Martin PA-C Summary Hospital Course Discharge Diagnosis: Left knee osteoarthritis Hospital Course: Operative Date/Time/Diagnoses Date of procedure: 09/15/22 Time of procedure: 14:00 Procedure & Clinicians Procedure: left total knee arthroplasty Same procedure as scheduled: Yes Indications: The patient has had progressively worsening left knee pain with radiographic changes consistent with arthritis. Non-operative management has failed and the patient has requested total knee replacement. The risks, benefits and alternatives to surgery were discussed with the patient prior to proceeding. Risks discussed included, but were not limited to, failure to relieve pain, stiffness, infection, nerve damage, deep venous thrombosis, pulmonary embolism, stroke, coma, heart attack, permanent paralysis and , as well as the potential need for eventual revision of the prosthetic. Surgeon: Sara Jorgensen Plumbing Manager: Leonie Martin Anesthesia Type: General and Spinal Operative Notes Findings: Severe left knee osteoarthritis, adequate stability and range of motion Closure Type: primary Specimen(s): none sent Prosthetic devices, grafts, tissues, transplants, or devices: Jorgensen and nephew journey BCS 2 size 4 femur, size 3 tibia, +10 poly, 35 x 9 mm patella Estimated Blood Loss (mL): 150 Blood products transfused: none Tourniquet time (min): 73 Status at Discharge Cognitive/behavioral status at discharge: at baseline, oriented Functional status at discharge: uses cane/walker Overall status at discharge: patient is progressing back to baseline Exam Vital Signs (past 8 hours): - 09/16/22 01:40 09/16/22 02:10 09/16/22 06:00 Temperature 96.9 F L 97.4 F L Pulse Rate 74 54 L Respiratory Rate 17 17 Blood Pressure 121/45 L 118/66 105/44 L Pulse Oximetry 97 95 Oxygen Flow Rate 0 0 Oxygen Delivery Method Room Air Oxygen Flow Rate 0 Narrative Exam Narrative: Pleasant 82-year-old female, resting comfortably in bed, no acute distress. Left knee dressings are clean, dry, intact. Bilateral lower extremity: Motor functions are grossly intact, sensation is grossly intact to light touch. Calves are soft and nontender to palpation. Objective Labs Result Diagrams: 09/16/22 05:47 Labs: Laboratory Results - last 24 hr 09/16/22 05:47 Hgb 9.7 L Hct 30.0 L PFSH Medical History Arthritis Cataracts, bilateral CVA (cerebral vascular accident) (2019) Diabetes Greater trochanteric bursitis of left hip History of Schaeffer's esophagus History of GI bleed (1973) Hyperlipemia Hypertension Hypothyroidism Iron deficiency anemia Left knee pain Low back pain Osteopenia Osteoporosis Preventative health care Renal insufficiency Seizures Subdural hematoma (07/2019) Tinea Surgical History History of knee replacement (2008) Hx of bilateral cataract extraction (2019) Hx of cholecystectomy (2019) Hx of craniotomy (08/24/19) Social History household members: none Smoking Status: Former smoker Tobacco: How many years used: 12 second hand exposure: No alcohol intake: former substance use type: does not use Discharge Assessment & Plan Assessment and Plan Assessment: -stable status post left total knee arthroplasty -insulin-dependent diabetic Plan of Treatment: -mobilize with physical therapy. Weightbearing as tolerated with front wheel walker -continue with multimodal pain management. The patient already has prescriptions for Tylenol, meloxicam, oxycodone 5 mg, Colace at home. I will send a prescription of Marcelle. -aspirin 81 mg b.i.d. x6 weeks for DVT prophylaxis -glucose POC AC levels ordered -DC home today once cleared by PT Discharge Plan Discharge Plan Patient Disposition: Home Discharge orders & Medications Discharge Orders: Discharge (Order); Ordered 09/16/22 Ordered By: Leonie Martin Prescriptions: New ondansetron 4 mg Tablet,Disintegrating 4 mg PO Q4HR PRN (Reason: Nausea And Vomiting) Qty: 14 0RF oxycodone 5 mg Tablet 5 mg PO Q3HR PRN (Reason: Pain, Moderate (4-6)) Qty: 42 0RF meloxicam 7.5 mg tablet 7.5 mg PO DAILY PRN (Reason: Pain/inflammation) Qty: 45 0RF Rx Instructions: Take with breakfast/food acetaminophen 500 mg capsule 500 mg PO Q4H MDD Max 3000 mg per day PRN (Reason: fever or pain) Qty: 90 0RF aspirin 81 mg Tablet,Delayed Release (Dr/Ec) 81 mg PO BID 42 Days Qty: 84 0RF Rx Instructions: Prevent blood clots docusate sodium 100 mg Capsule 100 mg PO BID PRN (Reason: Constipation from narcotic pain meds) Qty: 20 0RF Continued (DME) blood-glucose meter [FreeStyle Lite Meter] Kit See Rx Instructions .Route Qty: 1 0RF Rx Instructions: As directed (DME) FreeStyle Lite Lancets Qty: 100 6RF Dose Instruction: As directed Rx Instructions: Use to check blood sugars 3x a day or as requested by physician metformin 500 mg tablet 500 mg PO BID Qty: 180 3RF (DME) FreeStyle Lite Strips Strip See Rx Instructions .Route Qty: 100 6RF Rx Instructions: Use to check BS 3x a day or as requested by provider (DME) BD Ultra Fine Pen Van Dyne 100 package Qty: 1 3RF Rx Instructions: As directed amlodipine 5 mg tablet 5 mg PO DAILY Qty: 90 1RF levothyroxine [Synthroid] 75 mcg tablet 75 mcg PO QAM Qty: 90 1RF lisinopril 10 mg tablet 10 mg PO DAILY Qty: 90 3RF metoprolol tartrate 25 mg tablet 25 mg PO BEDTIME Qty: 90 1RF Rx Instructions: Take at bedtime pantoprazole 40 mg tablet,delayed release (DR/EC) 40 mg PO QDAY Qty: 90 3RF diclofenac sodium 1 % gel 2 g TOP QID PRN (Reason: Bursitis) Qty: 150 1RF Rx Instructions: apply to single elbow, wrist or hand; for hand includes palm/fingers/back of hand lidocaine [Lidoderm] 5 % adhesive patch,medicated 1 patch TOP PRN PRN (Reason: Pain (Scale Score 4-6)) atorvastatin 10 mg tablet 10 mg PO BEDTIME Qty: 90 3RF levetiracetam 750 mg tablet 750 mg PO BID insulin glargine 100 unit/mL (3 mL) insulin pen 9 unit SUBCUT BEDTIME vitamin B complex [B-Complex] Tablet 1 tab PO DAILY Ankush Mag Zinc Plus D3 333 mg-133 unit -133 mg-5 mg Tablet 1 tab PO DAILY Discontinued aspirin 81 mg Capsule 81 mg PO DAILY acetaminophen [Tylenol] 325 mg capsule 650 mg PO QID PRN (Reason: pain) Qty: 60 0RF Follow up/Referrals: Jt Saldaña DO [Primary Care Provider] - Sara Jorgensen MD [Physician] - As previously scheduled (10-14 days for postoperative visit) Diet/Activity/Treatments Diet: Carb-consistent/Diabetic Other treatments: Medications: -Aspirin 81mg twice daily x6 weeks to prevent blood clots. -OTC Tylenol 500 mg 1 tablet every 4 hours as needed for pain/fever. Max 6 tablets per day. -meloxicam 7.5 mg 1 tablet once daily with breakfast for pain/inflammation. -Oxycodone 5 mg take 1-2 tablets every 4 hours as needed for moderate-severe pain (narcotic pain medication). -Vistaril (hydroxyine) 25mg 1 tab every 4 hours as needed for spasms/pain/nausea. -As needed medications: -Ducolax and /or MiraLax as needed for constipation from narcotic pain medications. -Pepcid AC as needed for stomach upset (usually from aspirin or ibuprofen). Dressing/Wound care: -Remove the Marcelo wrap 48 hours after surgery. -Keep Aquacell dressing in place until postoperative follow-up office visit. -Okay to shower. Keep wound out of direct water stream. No soaking or submerging until all the scabs fall off (approximately 4-6 weeks). -No lotions, ointments, or scar creams directly to the incision until the wound is healed (4-6 weeks). No soaking or submerging until all the scabs are gone (usually 4-6 weeks). -Bruising is relatively normal and can show up 1-10 days after surgery, and can travel down to your foot or ankle. This is expected after surgery, but can be painful. -Please call the office if dressing becomes wet, soiled, or saturated. Activities: -Weight-bearing as tolerated. Use front wheeled walker, and progress to cane when safe. -Continue with home exercises as directed by your physical therapist. -Elevate ?toes above the nose if you have significant swelling in your lower leg. (A wedge pillow is easiest.) -Ice your incision as needed for pain/inflammation/swelling. Protect your skin with a folded pillowcase. -Incentive Spirometer (breathing device from hospital): 5-10xs every hour while awake for the first 1-2 weeks. Follow-up: -Follow-up with your surgeon or PA in the office in 10-14 days after surgery. -Follow-up with your surgeon 6 weeks postoperatively. Call the office if you have chest pain, shortness of breath, significant swelling that will not resolve with elevating, fever over 101?, significantly worsening pain, or are concerned you might need to go to the Emergency Room. [facility]: [phone] Skin/Wound/Dressing Care Report to your healthcare provider any signs of infection, such as:: chills, fever, night sweats, unusual drainage and unusual redness Visit Report/Discharge Packet Instructions: DI for Knee Replacement Stand Alone Forms: Surgery Discharge Discharge Data Primary Care Provider: Jt Saldaña Attending Provider: Sara Jorgensen
[2022-09-16] MEDS: METFORMIN HCL 500 MG TABLET PO (08:48)
[2022-09-16] MEDS: levETIRAcetam 250 MG TABLET 750 MG PO (08:48)
[2022-09-16] MEDS: ASPIRIN EC 81 MG TABLET PO (08:49)
[2022-09-16] MEDS: AMLODIPINE 5 MG TABLET PO (08:49)
[2022-09-16] MEDS: DOCUSATE 100 MG CAPSULE PO (08:50)
[2022-09-16 08:54] VITALS: BP 119/49; PULSE 72; RESP 16; TEMP 36.8; O2SAT 97
[2022-09-16 08:55] VITALS: BP 112/48; PULSE 62
[2022-09-16] MEDS: CALCIUM CARB/VIT D3 500/200 TABLET 1 EACH PO (08:55)
[2022-09-16] MEDS: lisinopriL 10 MG TABLET PO (08:55)
--- NOTE | 2022-09-16 09:00 | CM.DANOTE ---
DCP: Case received, EMR reviewed and met with patient. Introduced self and role. Was able to obtain information regarding patient's baseline activity status at home prior to surgery, as well as her current living situation. DCP assessment completed with information currently available. Patient is an 82 year old female who admitted yesterday morning to the care of the orthopedic tea. PCP: Dr. Saldaña. Payer: confirmed: Medicare/[employer]. Patient came to the hospital via private vehicle for a surgical procedure. Patient had left total knee arthroplasty. Patient has history of left knee osteoarthritis. Met with patient in her room. She was sitting up in chair, alert and oriented. Confirmed that she resides in [facility] [place], but has her sister staying with her post-surgery, and he son, Vincent, to transport home, who lives in [place]. Patient is independent at her baseline. She plans to do outpatient P.T. at [facility], in [place]. P: Patient has discharge orders for home today. She will work again with P.T. before discharge. Charlene Ramos RN/[employer] Discharge Planning/Care Management CM Discharge Assessment Start: 09/16/22 08:59 Freq: Status: Active Protocol: Document 09/16/22 08:59 (Rec: 09/16/22 09:00 [id number]) Discharge Planning Assessment Assigned Campaign Associate Charlene Ramos RN/[employer] Advance Directives? No History Provided By Patient,Medical Record Prior Living Arrangements House Household Members none Type of transporation used prior to Drives own vehicle admit Independent with ADL's Yes Is patient alert and oriented? Yes Caregiver for Another No Patient/Family Preference OP PT Therapy Comment Patient is supposed to go to [facility] Barriers to Discharge No Discharge Plan Home Transportation Arrangement son Vincent [place] will pick pt up at d/c Referrals Initiated None needed Whiteboard Updated in Patient Room with Yes name and ext. # of Campaign Associate Review Status In Process Next Review Type Continued Stay Review Pre-Anesthesia Assessment Start: 09/02/22 13:47 Freq: Status: Active Protocol: Document 09/02/22 13:47 CAB (Rec: 09/02/22 14:49 CAB [id number]) Pre-Anesthesia Assessment Preferred Name Shae Patient Information Reviewed Via Phone Assessment Assessment Completed With Patient Comment Labs/ECG @ 08/05/22, COVID screen @ 09/14/22 Primary Care Provider Jt Saldaña Seen Specialist in Last 12 Months Yes Specialist Seen Orthopedist,Other Comment Neurology Primary Language Haitian Preferred Language Haitian Organ Assembler Required No Height 5 ft 2 in Weight 153 lb Body Mass Index (BMI) 28.0 Hearing Ability Normal Visual Assist Magnifying Glass Dentition Type Teeth, Natural Present,Partial - Lower Barriers to Learning None,Age related Hx Anesthesia Reactions No Hx Family Anesthesia Reaction No Hx Malignant Hyperthermia No Hx Blood Transfusions Yes: 1973 r/t stomach ulcer Hx Blood Transfusion Reaction No Anesthesia Review Requested Yes: Surgeon requested re: Multiple medical issues Community Outreach Manager Yes: Pt has no available help after surgery alcohol intake former Alcohol Intake Frequency Other: None since craniotomy 2018 Smoking Status Former smoker Tobacco type cigarettes how long ago did patient quit smoking 09/1971 Substance Use Type does not use Pain Present Pain Reported Musculoskeletal Symptoms Abnormal Gait,Back Pain, Difficulty Walking,Joint Pain History of Falling (Recent or History of Yes ) Patient is completely paralyzed or No completely immobile Mental Status Oriented to own ability Is patient on oxygen? No Does patient have SARGENT/SOB Yes: SARGENT Hx Sleep Apnea No CPAP/BIPAP use not prescribed Currently Taking a Beta Shobha Yes: Metoprolol Can You Climb a Flight of Stairs Without Yes SOB Hx Chest Pain Yes: Occasional Hx SOB Yes Hx Syncope or Dizziness No Anti-Coagulant Therapy No Has a Marine Meteorologist No Cardiac Testing No Hx Pacemaker/ICD No Pacemaker Rep Required? No Cardiac Clearance Received No Diet Type At Home Regular Dysphagia No Gastrointestinal Symptoms Reflux Comment Schaeffer's esophagus Urinary Catheter Present No Hx Urinary Self Catheterization No Diabetes Yes HgbA1C 7.0 Date 08/05/22 Patient No Lactating No Presence of External or Internal Medical Yes: Rt TKA, bilat eye IOLs Devices Have you had any close contact with No someone diagnosed with COVID-19? Received a COVID vaccine? Yes Received all doses? Yes Marital Status / Lives With none Current Living Arrangements House Number of Floors (Floors) One Floor Support System None Does the Patient Have Assistance After No Surgery Patient Discharge Plan Description Return Home Comment Pt not advised on length of stay per surgeon Feels Safe in Current Environment Yes Been Physically Hurt or Threatened By a No Person in Current Environment Do you have thoughts of harming yourself None or others? Are you currently considering suicide? No Do you have a plan to hurt yourself or No Plan others? Do You Have Any Spiritual Beliefs That No May Affect Your HC Choices? Do You Have Any Cultural Practices That No May Affect Your HC Choices? Comment Adventist Who Can We Speak to About Patient's Care Family, friends Identifying Code for Release of Patient Declines to issue Information Health Care Proxy/Next of Kin Vincent (son) Health Care Proxy Emergency Contact Name Vincent Jacobson (son) Emergency Contact Advance Directives? No Power of Supervisor Powdered Sugar No PAC Instructions Diabetes instructions,Do not shave/clip surgical site, Durable medical equipment, Medications to take/avoid, Nasal antibiotic,No ETOH/ petroleum product on skin DOS, NPO,Post-op transportation,Pre -surgical wash,Sensory aids, Sturdy shoes/comfortable clothes,Do not bring valuables and remove jewelry
--- NOTE | 2022-09-16 10:00 | PT.IIE ---
Current Diagnoses Unilateral primary osteoarthritis, left knee (09/16/22) Surgery Performed Operation Date: 09/15/22 13:45 Actual Procedures p Total Knee Arthroplasty(Left) - Sara Jorgensen MD Surgical History (Last Reviewed 09/16/22 @ 08:26 by Leonie Martin PA-C) History of knee replacement (2008) Hx of bilateral cataract extraction (2019) Hx of cholecystectomy (2019) Hx of craniotomy (08/24/19) Medical History (Last Reviewed 09/16/22 @ 08:26 by Leonie Martin PA-C) Arthritis Cataracts, bilateral CVA (cerebral vascular accident) (2019) Diabetes Greater trochanteric bursitis of left hip History of Schaeffer's esophagus History of GI bleed (1973) Hyperlipemia Hypertension Hypothyroidism Iron deficiency anemia Left knee pain Low back pain Osteopenia Osteoporosis Preventative health care Renal insufficiency Seizures Subdural hematoma (07/2019) Tinea Physical Therapy Inpatient Evaluation/Re-Eval M1 PT/OT-IP Prior Functional Status Start: 09/16/22 13:02 Freq: NEEDED Status: Active Protocol: Document 09/16/22 10:00 AB (Rec: 09/16/22 13:12 AB [email or web address]) Medical Review Prior Functional Status Medical History Reviewed Yes Communication able to make needs known Mobility and Gait pt stated that she is indpeendent with all mobilities and ambulationw ithout AD Social History Household Members none Living Arrangements House Number of Floors (Floors) One Floor Number of Stairs To Enter/Railing? 2 steps without rails to enter the house Home Environment Standard Height Toilet,Walk in Shower Home Equipment Front Wheel Walker,Straight Cane,Shower Seat without Backrest,Hand Held Shower Additional Social History Comment pt stated that her sister will be staying to assist her for this week M2 PT-IP Current Condition Start: 09/16/22 13:02 Freq: NEEDED Status: Active Protocol: Document 09/16/22 10:00 AB (Rec: 09/16/22 13:12 AB [email or web address]) Physical Therapy Current Condition Current Condition Evaluation Date 09/16/22 Treatment Diagnosis s/p L TKA; difficulty in walking Onset Date 09/15/22 M3 PT-IP Subjective Start: 09/16/22 13:02 Freq: NEEDED Status: Active Protocol: Document 09/16/22 10:00 AB (Rec: 09/16/22 13:12 [id number]) Subjective Physical Therapy Visit Type Type Initial Evaluation Visit Start Time 10:00 Visit Stop Time 10:50 Total Visit Minutes 50 Number of AIRWAY CONTROLLER Visits 0 Physical Therapy Visit Comments Patient Comments agreeable to do PT Therapy Pain Assessment Pain When Pain Assessed At Rest Pain Present Pain Present Pain Reported Location Left Knee Intensity 5 Scale Used 6-7/10 with mobility Pain Management Techniques Apply Cold,Distraction, Modification of Treatment,Re- positioning,Timing of Activity with Medications M4 PT-IP Mobility and Gait Start: 09/16/22 13:02 Freq: NEEDED Status: Active Protocol: Document 09/16/22 10:00 AB (Rec: 09/16/22 13:12 [id number]) PT-Bed Mobility Assessment Supine to Sit Supine to Sit Standby Assistance PT-Transfer Assessment Sit to and From Stand Sit to and from Stand Standby Assistance,Contact Guard Assistance,1 Person Assistance,Use of Upper Extremities Equipment Transfer Assistive Device Gait Belt,Front Wheeled Walker Orthotic/Prosthetic Devices or Brace: No Transfers Transfer Destination Chair Transfer Technique ambulated Transfer Ability Level of Assist Standby Assistance,Contact Guard Assistance,1 Person Assistance,Use of Upper Extremities Comments Mobility Comments pt completed supine to sit SBA . able to sit on EOB SBA. completed sit to stand SBA to CGA and ambulated in room using FWW 40 ft SBA to cGA and cues for steadiness and quads activation. pt sat on chair. agreed to do stairs. educated on stair climbing. completed sit to stand from the chair CGA. pt requires cues for techniques and safety . ambulated towards platform step and completed up/down step using SPC and MORTISING MACHINE OPERATOR min A and cues. repeated x 2. pt ambulated back to the chair using FWW SBA ~ 30 ft SBA. positioned pt on the chair. call light and table placed within reach. set up caregiver training for the afternoon with son at 1 pm . Gait Assessment Gait Gait Assistance Required: Standby Assistance,Contact Guard Assist Distance (Feet) 40 Able to Maintain Weight Bearing Status Yes During Gait Assistive Devices Assistive Device Gait Belt,Front Wheeled Walker Orthotic/Prosthetic Devices or Brace: No Gait Deviations General Gait Pattern Antalgic,Decreased Stride Length,Decreased Feet Clearance,Step-to Gait Factors Limiting Gait Function Factors Limiting Gait Function Decreased Activity Tolerance, Decreased Strength,Difficulty Following Directions,Limited Range of Motion,Pain,Poor Balance,Poor Safety Awareness Stair Climbing Assessment Evaluation Level of Assist On Stairs Minimal Assistance Devices Stair Climbing Assistive Devices Straight Cane Technique/Endurance Stair Climbing Direction Ascend and Descend Stair Climbing Technique Step to Step Number of Steps Climbed 1 Query Text: Stair Climbing Set # Repetitions (reps) 2 PT-Balance Assessment Sitting Balance and Reactions Static Sitting Balance Ability Normal Dynamic Sitting Balance Ability Normal Standing Balance and Reactions Static Standing Balance Ability Good Dynamic Standing Balance Ability Fair Device Used FWW M5 PT-IP Objective Assessments Start: 09/16/22 13:02 Freq: NEEDED Status: Active Protocol: Document 09/16/22 10:00 AB (Rec: 09/16/22 13:12 [email or web address] Orientation Orientation/Cognition Level of Alertness Alert Orientation Name,Place,Situation Language Function Ability No Deficits Noted Safety Awareness Decreased Safety Awareness Memory Description No Deficits Noted Gross Range of Motion Lower Extremity ROM Impairments L knee flexion : ~ 80 deg L knee extension: ~ 10 deg less to 0 Strength Lower Extremity Strength Assessment Left Impaired Hip 4-/5 Knee 4-/5 Coordination Assessment Gross Coordination Gross Coordination WNL Sensation Assessment Sensation Gross Sensation WNL Muscle Tone Muscle Tone WNL Yes M6 PT-IP Treatment Start: 09/16/22 13:02 Freq: NEEDED Status: Active Protocol: Document 09/16/22 10:00 AB (Rec: 09/16/22 13:12 AB [email or web address]) Physical Therapy Treatment Education Education Provided Precautions,Weight Bearing Status,Post-Op Packet,Safety M7 PT-IP Assessment and Plan Start: 09/16/22 13:02 Freq: NEEDED Status: Active Protocol: Document 09/16/22 10:00 AB (Rec: 09/16/22 13:12 AB [email or web address]) PT Summary Assessment and Plan Potential Rehabilitation Potential Good Status of Condition at Evaluation Stable Summary Impairments Pain,ROM,Strength,Balance, Coordination,Sensation,Tone, Cognition,Bed Mobility, Transfers,Gait,Activity Tolerance Assessment Summary caregiver training set up for 1 pm this afternoon. pt requiring SBA to CGA with ambulation using FWW but needed min A with stair climbing. pt plans to go home with her sister to assist her . will continue to assess progress. Goals Bed Mobility Goal Independent Transfer Goal Independent,Front Wheeled Walker Gait Goal Independent,Front Wheel Walker Gait Distance 150 Other Goals up/down 2 steps using SPC + MORTISING MACHINE OPERATOR CGA Days to Meet Goals 5 Frequency of Treatment Frequency Of Treatment Twice a Day Treatment Plan Physical Therapy Treatment Plan Bed Mobility Training,Transfer Training,Gait Training, Therapeutic Exercise,Balance Retraining,Post Op Education, Discharge Planning,Hot or Cold Pack,Neuromuscular Re-ed, Coordination Retraining,Manual Therapy Weight Bearing Status Weight Bearing Status Weight Bear as Tolerated Allowed Weight Bearing Amount (enter % LLE WBAT or #) (%) Recommendations To Nursing Amount of Assist Needed 1 Person Assist Discharge Recommendations PT Discharge Recommendations Home with Assistance, Outpatient PT Transportation Needs at Discharge Private Vehicle
--- NOTE | 2022-09-16 14:02 | PT.IPTN ---
Current Diagnoses Unilateral primary osteoarthritis, left knee (09/16/22) Surgery Performed Operation Date: 09/15/22 13:45 Actual Procedures p Total Knee Arthroplasty(Left) - Sara Jorgensen MD Physical Therapy Treatment Note M2 PT-IP Current Condition Start: 09/16/22 13:02 Freq: NEEDED Status: Active Protocol: Document 09/16/22 10:00 AB (Rec: 09/16/22 13:12 AB [id number]) Physical Therapy Current Condition Current Condition Evaluation Date 09/16/22 Treatment Diagnosis s/p L TKA; difficulty in walking Onset Date 09/15/22 M3 PT-IP Subjective Start: 09/16/22 13:02 Freq: NEEDED Status: Active Protocol: Document 09/16/22 13:35 LJ (Rec: 09/16/22 14:02 LJ [id number]) Subjective Physical Therapy Visit Type Type Treatment Note Visit Start Time 12:52 Visit Stop Time 13:16 Total Visit Minutes 24 Notes CGT with son Number of [employer] Visits 1 Physical Therapy Visit Comments Patient Comments agreeable to do PT Patient Goals go home Therapy Pain Assessment Pain When Pain Assessed At Rest Pain Present Pain Present Pain Reported Location Left Knee Intensity 4 Scale Used Numeric (0 - 10) Pain Management Techniques Apply Cold,Distraction, Modification of Treatment,Re- positioning,Timing of Activity with Medications M4 PT-IP Mobility and Gait Start: 09/16/22 13:02 Freq: NEEDED Status: Active Protocol: Document 09/16/22 13:35 LJ (Rec: 09/16/22 14:02 LJ [id number]) PT-Transfer Assessment Sit to and From Stand Sit to and from Stand Standby Assistance,Contact Guard Assistance,1 Person Assistance,Use of Upper Extremities Equipment Transfer Assistive Device Gait Belt,Front Wheeled Walker Orthotic/Prosthetic Devices or Brace: No Transfers Transfer Destination Chair Transfer Technique ambulated Transfer Ability Level of Assist Standby Assistance,Contact Guard Assistance,1 Person Assistance,Use of Upper Extremities Comments Mobility Comments Pt sitting in chair. Son in room willing to assist mother with mobility and practicing platform sttep. Pt cued to scoot forward in chair prior to atteemptiing to stand. Pt pushed from chair and stood with son assisting CGA, gait belt, and FWW. Pt stood for several seconds prior to beginning to walk. Pt ambulated to other side of bed FWW where platform step was located. Pt switched to SPC and son hh assist to step up/ down platform x2. Pt did not have any difficulty with step. Pt then ambulated in hallway [facility] with son assisting ~ 200'. Pt demonstrating good gait mechanics and FWW management. Pt returned to room and stood at sink ~2 min to brush teeth. Returned to chair and sat down using UEs to lower self. Pt given ice packs to apply to knee. Pt left in room with son. Informed them she is safe to DC. Discussed importance of performing exercises and she agreed. Gait Assessment Gait Gait Assistance Required: Standby Assistance,Contact Guard Assist Distance (Feet) 200 Able to Maintain Weight Bearing Status Yes During Gait Assistive Devices Assistive Device Gait Belt,Front Wheeled Walker Orthotic/Prosthetic Devices or Brace: No Gait Deviations General Gait Pattern Antalgic,Decreased Stride Length,Decreased Feet Clearance Factors Limiting Gait Function Factors Limiting Gait Function Decreased Activity Tolerance, Decreased Sensation,Decreased Strength,Limited Range of Motion,Pain,Poor Balance Comments Gait Comments Pt doing well with ambulation being able to weightbear on LLE with minimal pain and antalgia. Good progress with normalizing gait and managing FWW. Pt has SPC, FWW, and 4 wheeled walker. She has met goals, has 24/7 assist for a week, and family close to home who will assist and stay with pt overnights. Stair Climbing Assessment Evaluation Level of Assist On Stairs Minimal Assistance Devices Stair Climbing Assistive Devices Straight Cane Technique/Endurance Stair Climbing Direction Ascend and Descend Stair Climbing Technique Step to Step Number of Steps Climbed 1 Stair Climbing Set # Repetitions (reps) 2 Comments Stair Climbing Comments Pt safe on platform step with son assist and SPC. PT-Balance Assessment Sitting Balance and Reactions Static Sitting Balance Ability Normal Dynamic Sitting Balance Ability Normal Standing Balance and Reactions Static Standing Balance Ability Good Dynamic Standing Balance Ability Fair Device Used FWW M5 PT-IP Objective Assessments Start: 09/16/22 13:02 Freq: NEEDED Status: Active Protocol: Document 09/16/22 10:00 AB (Rec: 09/16/22 13:12 AB [id number]) Orientation Orientation/Cognition Level of Alertness Alert Orientation Name,Place,Situation Language Function Ability No Deficits Noted Safety Awareness Decreased Safety Awareness Memory Description No Deficits Noted Gross Range of Motion Lower Extremity ROM Impairments L knee flexion : ~ 80 deg L knee extension: ~ 10 deg less to 0 Strength Lower Extremity Strength Assessment Left Impaired Hip 4-/5 Knee 4-/5 Coordination Assessment Gross Coordination Gross Coordination WNL Sensation Assessment Sensation Gross Sensation WNL Muscle Tone Muscle Tone WNL Yes M6 PT-IP Treatment Start: 09/16/22 13:02 Freq: NEEDED Status: Active Protocol: Document 09/16/22 13:35 RACHAEL (Rec: 09/16/22 14:02 [id number]) Physical Therapy Treatment Education Education Provided Precautions,Weight Bearing Status,Post-Op Packet,Safety M7 PT-IP Assessment and Plan Start: 09/16/22 13:02 Freq: NEEDED Status: Active Protocol: Document 09/16/22 13:35 RACHAEL (Rec: 09/16/22 14:02 [id number]) PT Summary Assessment and Plan Potential Rehabilitation Potential Good Status of Condition at Evaluation Stable Summary Impairments Pain,ROM,Strength,Balance, Coordination,Sensation,Tone, Bed Mobility,Transfers,Gait, Activity Tolerance Assessment Summary Pt has met goals and family has gone through CGT. She is safe to DC home today. Goals Bed Mobility Goal Independent Transfer Goal Independent,Front Wheeled Walker Gait Goal Independent,Front Wheel Walker Gait Distance 150 Other Goals up/down 2 steps using SPC + [employer] CGA Days to Meet Goals 5 Frequency of Treatment Frequency Of Treatment Twice a Day Treatment Plan Physical Therapy Treatment Plan Bed Mobility Training,Transfer Training,Gait Training, Therapeutic Exercise,Balance Retraining,Post Op Education, Discharge Planning,Hot or Cold Pack,Neuromuscular Re-ed, Coordination Retraining,Manual Therapy Weight Bearing Status Weight Bearing Status Weight Bear as Tolerated Allowed Weight Bearing Amount (enter % LLE WBAT or #) (%) Recommendations To Nursing Amount of Assist Needed 1 Person Assist Discharge Recommendations PT Discharge Recommendations Home with Assistance, Outpatient PT
--- NOTE | 2022-09-16 14:18 | PC.NURSE ---
Discharge note: IV discontinued by PCT. PT conducted caregiver training with pt's son. Discussed PRN pain medication, increasing fluid and fiber intake to prevent constipation, PRN N/V medication. Pt verbalized understanding and had no unanswered questions. Pt's belongings with pt. Pt was brought in a w/c to a private vehicle and discharged home with son.
== END 2022-09-16 13:50 | disposition home or self-care (01) ==
LOC: OR 11:40 → AC 11:40
PROVIDERS: Admitting Provider Orthopaedic Surgery; PCP Family Medicine; Referring Provider Orthopaedic Surgery; Visit Provider Orthopaedic Surgery
PROC: 0SRD0JZ Replacement of Left Knee Joint with Synthetic Substitute, Open Approach (ICD-10-PCS; CPT 27447; principal; 2022-09-15 13:45)
DX: M17.12 Unilateral primary osteoarthritis, left knee (principal); E11.9 Type 2 diabetes mellitus without complications; Z79.4 Long term (current) use of insulin
CPT/HCPCS: 27447; 36415; 73560; 82962; 85014; 85018; 97116; 97161; C1776; G0378; C9290; J0690; J1100; J2250; J2405; J2704; J3010

== ENCOUNTER → 2022-11-30 08:56 | Outpatient (CLI) | payer MEDICARE, OTHER, SELFPAY ==
[2022-09-15 18:10] VITALS: BMI 27.2
[2022-11-30 10:37] LABS: Alanine Aminotransferase 15 IU/L (<35); Albumin 3.8 g/dL (3.5-5.0); Albumin Globulin Ratio 1.3 (1.0-2.8); Alkaline Phosphatase 53 U/L (38-126); Aspartate Aminotransferase 19 IU/L (14-36); BUN Creatinine Ratio 14.7 (6-22); Bilirubin Total 0.4 mg/dL (0.2-1.3); Blood Urea Nitrogen 17 mg/dL (7-17); Carbon Dioxide 26 mmol/L (22-32); Chloride 102 mmol/L (98-107); Cholesterol 192 mg/dL (140-199); Estimated Glomerular Filt Rate 47 mL/min (>60); Globulin 2.9 g/dL (1.7-4.1); Glucose 120 mg/dL (80-110); HDL Cholesterol 62 mg/dL (40-60); HEMOLYSIS < 15 (0-50); LDL Cholesterol Calculated 94 mg/dL (<100); Potassium 4.8 mmol/L (3.4-5.1); Sodium 135 mmol/L (137-145); Total Protein 6.7 g/dL (6.3-8.2); Triglycerides 179 mg/dL (35-150)
[2022-11-30 10:45] LABS: Microalbumi Creatinin Ratio Ur 45.6 ug/mg CR (<30); Microalbumin Urine Random 8.4 mg/dL (0-1.6)
[2022-11-30 10:52] LABS: Add Manual Diff / Slide Review NO; Basophils Absolute Auto 100 /uL (0-100); Basophils Percent Auto 1.1 % (0-2); Eosinophils Absolute Auto 600 /uL (0-450); Hematocrit 31.5 % (36-46); Hemoglobin 10.4 g/dL (12.0-16.0); Lymphocytes Absolute Auto 2100 /uL (1100-4500); Lymphocytes Percent Auto 23.1 % (25-40); Mean Corpuscular HGB Conc 32.9 % (30-36); Mean Corpuscular Hemoglobin 25.9 PG (26-34); Mean Corpuscular Volume 78.6 fL (80-100); Monocytes Absolute Auto 600 /uL (0-900); Monocytes Percent Auto 6.3 % (3-14); Neutrophils Absolute Auto 5700 /uL (1500-7000); Neutrophils Percent Auto 62.5 % (50-75); Platelet Count 381 X10^3/uL (150-400); Red Blood Cell Count 4.01 X10^6/uL (4.0-5.2); Red Cell Distribution Width 14.5 % (11.6-14.8); White Blood Cell Count 9.1 X10^3/uL (4.5-11.0)
[2022-11-30 11:02] LABS: TSH w/ Reflex to FT4 2.06 uIU/mL (0.47-4.68)
[2022-12-01 07:53] LABS: x Labcorp Estim. Avg Glu (eAG) 154 mg/dL (.)
== END ==
PROVIDERS: PCP Family Medicine; Referring Provider Family Medicine; Visit Provider Family Medicine
DX: D50.9 Iron deficiency anemia, unspecified (principal); E11.9 Type 2 diabetes mellitus without complications; E03.9 Hypothyroidism, unspecified; E78.5 Hyperlipidemia, unspecified
CPT/HCPCS: 36415; 80053; 80061; 82043; 82570; 83036; 84443; 85025

== ENCOUNTER → 2022-12-25 11:28 | Outpatient (CLI) | payer MEDICARE, OTHER, SELFPAY ==
[2022-09-15 18:10] VITALS: BMI 27.2
--- NOTE | 2022-12-25 | DI.MG.S_ITS ---
BILATERAL DIGITAL SCREENING MAMMOGRAM 3D/2D WITH CAD: 12/25/2022 CLINICAL: Routine screening. Comparison is made to exams dated: 11/19/2021 mammogram, 02/01/2019 mammogram, and 06/07/2017 mammogram - [facility]. There are scattered areas of fibroglandular density in both breasts (category b / 25%-50% glandular tissue). Current study was also evaluated with a Computer Aided Detection (CAD) system. No significant masses, calcifications, or other findings are seen in either breast. There has been no significant interval change. IMPRESSION: NEGATIVE There is no mammographic evidence of malignancy. A 1 year screening mammogram is recommended. Based on the Tyrer Cuzick model (a risk assessment model) the patient's lifetime risk is 0.5% and her 10 year risk is 0.0%. According to the ACR, ACS, and NCCN guidelines, an annual breast MRI exam along with mammogram is recommended if the patient's lifetime risk is 20% or greater. This exam was interpreted at Station ID: [id number]. NOTE: For mammograms, a report in lay terms will be sent to the patient. Approximately 15% of breast malignancies will not be visualized mammographically. In the management of a palpable breast mass, a negative mammogram must not discourage biopsy of a clinically suspicious lesion. Electronically Signed By: Nara palma/jerome:12/25/2022 12:37:05 letter sent: Normal Exam ACR BI-RADS Category 1: Negative [id number]
== END ==
PROVIDERS: PCP Family Medicine; Referring Provider Family Medicine; Visit Provider Family Medicine
DX: Z12.31 Encounter for screening mammogram for malignant neoplasm of breast (principal)
CPT/HCPCS: 77063; 77067

== ENCOUNTER → 2023-05-07 08:26 | Outpatient (CLI) | payer MEDICARE, OTHER, SELFPAY ==
[2022-09-15 18:10] VITALS: BMI 27.2
[2023-05-07 10:40] LABS: Alanine Aminotransferase 15 IU/L (<35); Albumin 3.9 g/dL (3.5-5.0); Albumin Globulin Ratio 1.5 (1.0-2.8); Alkaline Phosphatase 47 U/L (38-126); Aspartate Aminotransferase 22 IU/L (14-36); BUN Creatinine Ratio 17.2 (6-22); Bilirubin Total 0.4 mg/dL (0.2-1.3); Blood Urea Nitrogen 23 mg/dL (7-17); Calcium 9.9 mg/dL (8.4-10.2); Carbon Dioxide 27 mmol/L (22-32); Chloride 101 mmol/L (98-107); Estimated Glomerular Filt Rate 39 mL/min (>60); Globulin 2.6 g/dL (1.7-4.1); Glucose 92 mg/dL (80-110); HEMOLYSIS < 15 (0-50); Potassium 4.7 mmol/L (3.4-5.1); Sodium 135 mmol/L (137-145); Total Protein 6.5 g/dL (6.3-8.2)
[2023-05-07 10:41] LABS: Hemoglobin A1C% w Est Avg Glu 6.2 % (4.0-6.0)
== END ==
PROVIDERS: PCP Family Medicine; Referring Provider Family Medicine; Visit Provider Family Medicine
DX: E11.9 Type 2 diabetes mellitus without complications (principal); E78.5 Hyperlipidemia, unspecified
CPT/HCPCS: 36415; 80053; 83036

== ENCOUNTER 2023-06-09 08:47 | Day surgery (SDC) | payer MEDICARE, OTHER, SELFPAY ==
[2022-09-15 18:10] VITALS: BMI 27.2
[2023-06-09] MEDS: LACTATED RINGERS 1,000 ML 42 ML IV (09:00)
[2023-06-09 09:10] VITALS: BP 137/69; PULSE 71; RESP 16; TEMP 36.6; O2SAT 99; BMI 27.8
--- NOTE | 2023-06-09 09:43 | PM.PREOP ---
Pre-operative Note COVID-19 COVID-19 status: Negative Interval Note History & Physical reviewed/Exam performed by Physician: Yes Changes to H&P: No ASA Class (for procedural sedation): III
--- NOTE | 2023-06-09 09:44 | P.OP.EGD_ITS ---
Operative Date/Time/Diagnoses Date of procedure: 06/09/23 Pre-op diagnosis: See indication and findings Procedure & Clinicians Study performed: EGD Indications: New onset substernal dysphagia Surgeon: Lester High Procedure Notes Procedure in detail: After informed consent was obtained the patient was placed in left lateral decubitus position. The video upper scope was placed into the oropharynx and with the patient's help swallowed into the esophagus. The esophagus stomach and duodenum were carefully examined. On withdrawal, retroflexed view the GE junction was performed. The scope was removed. The patient tolerated procedure well. Blood loss none Complications none Sedation mac One. There was a mild Mild Schatzki's ring at the GE junction located 32 cm from the incisors. This was dilated to 51 [place] Sav[place] on withdrawal. There was no resistance. There was no inflammation at the Schatzki's ring. 2. 4 cm hiatal hernia with hiatus at 36 cm 3. Otherwise normal stomach 4. Normal duodenal bulb and sweep Patient should call our office to report how she is doing in 4-6 weeks.
[2023-06-09 10:23] VITALS: BP 140/76; PULSE 68; RESP 15; TEMP 36.4; O2SAT 97
[2023-06-09 10:28] VITALS: BP 132/56; PULSE 70; RESP 13; TEMP 36.4; O2SAT 98
[2023-06-09 10:34] VITALS: BP 145/67; PULSE 62; RESP 14; TEMP 36.3; O2SAT 99
[2023-06-09 10:40] VITALS: BP 144/70; PULSE 61; RESP 15; TEMP 36.3; O2SAT 98
== END 2023-06-09 10:53 | disposition home or self-care (01) ==
PROVIDERS: PCP Family Medicine; Referring Provider Internal Medicine Gastroenterology; Visit Provider Internal Medicine Gastroenterology
PROC: 0DJ08ZZ Inspection of Upper Intestinal Tract, Via Natural or Artificial Opening Endoscopic (ICD-10-PCS; CPT 43235; principal; 2023-06-09 10:00)
DX: K22.2 Esophageal obstruction (principal); K44.9 Diaphragmatic hernia without obstruction or gangrene
CPT/HCPCS: 43248

== ENCOUNTER → 2024-02-09 17:17 | Outpatient (CLI) | payer MEDICARE, OTHER, SELFPAY ==
[2022-09-15 18:10] VITALS: BMI 27.2
--- NOTE | 2024-02-09 17:23 | DI.RAD.S_ITS ---
PROCEDURE: XR HIP W PEL IF DONE RT 2V INDICATIONS: R hip pain TECHNIQUE: AP pelvis with lateral view(s) of the right hip(s). COMPARISON: [facility], CR, [id number] W PEL IF PERFORMED, 09/21/2017, 12:49. FINDINGS: Bones: No fractures or dislocations. Vziu-sk-leqxesck right hip joint osteoarthritic changes are seen unchanged or minimally progressed since 2018 study. No evidence of avascular necrosis of femoral head. Pelvic ring appears intact. No suspicious bony lesions. Soft tissues: The visualized bowel gas pattern is normal. No suspicious soft tissue calcifications. IMPRESSION: Cqwn-lz-dkhxuegn right hip joint osteoarthritis unchanged or minimally progressed since 2018 study. No fracture or dislocation. No evidence of avascular necrosis. Dictated by: Beau Cox M.D. on 02/10/2024 at 14:27 Approved by: Beau Cox M.D. on 02/10/2024 at 14:28
--- NOTE | 2024-02-09 17:23 | DI.RAD.S_ITS ---
PROCEDURE: XR LUMBAR SPINE 2-3V INDICATIONS: back pain TECHNIQUE: 3 views of the lumbar spine were acquired. COMPARISON: [facility], CR, XR LUMBAR SPINE 2-3V, 10/07/2021, 12:43. FINDINGS: Bones: 5 mse-ldz-ivertyi vertebrae are present. There is kiix-rq-jvlciuvk rightward curvature of lumbar spine with apex at L3 level. Degenerative endplate changes and loss of disc height throughout lumbar spine is seen. There is 6 mm retrolisthesis of L2 on L3 and 3 mm retrolisthesis of L3 on L4. Chronic appearing mild superior endplate compression deformity at L2 vertebral body is again seen with up to 10% loss of L2 vertebral body height unchanged from prior study . No acute vertebral body compression fractures. No suspicious bony lesions. Soft tissues: Overlying bowel gas pattern is normal. No suspicious soft tissue calcifications. IMPRESSION: 1. Chronic appearing mild superior endplate compression deformity at L2 level with up to 10% loss of L2 vertebral body height unchanged from prior study. No acute lumbar spine vertebral body compression fracture. 2. 6 mm retrolisthesis of L2 on L3 and 3 mm retrolisthesis of L3 on L4. Xtgw-nv-pavdpiqp dextroscoliosis centered at L3 level. Degenerative disc disease throughout lumbar spine. Dictated by: Beau Cox M.D. on 02/10/2024 at 13:49 Approved by: Beau Cox M.D. on 02/10/2024 at 14:05
--- NOTE | 2024-02-09 17:23 | DI.RAD.S_ITS ---
PROCEDURE: XR HAND RT MIN 3V INDICATIONS: Bilateral hand pain TECHNIQUE: 3 views of the hand(s) acquired. COMPARISON: None. FINDINGS: Bones: There is diffuse osteopenia. Moderate to severe osteoarthritic changes are noted throughout right hand and wrist joints more notably involving 1st CMC joint and interphalangeal joints. 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 No acute fracture or dislocation. No suspicious bony lesions. Soft tissues: No suspicious soft tissue calcifications. IMPRESSION: Moderate to severe osteoarthritic changes in right hand and wrist joints as above. Diffuse osteopenia. No acute fracture or dislocation. Dictated by: Beau Cox M.D. on 02/10/2024 at 14:18 Approved by: Beau Cox M.D. on 02/10/2024 at 14:19
--- NOTE | 2024-02-09 17:23 | DI.RAD.S_ITS ---
PROCEDURE: XR HAND LT MIN 3V INDICATIONS: Bilateral hand pain TECHNIQUE: 3 views of the hand(s) acquired. COMPARISON: None. FINDINGS: Bones: There is osteopenia. No acute fracture or dislocation. 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 No suspicious bony lesions. Soft tissues: No suspicious soft tissue calcifications. IMPRESSION: Moderate to severe osteoarthritic changes throughout left hand and wrist joints with features suggestive of erosive osteoarthritis as above. No acute fracture or dislocation. Dictated by: Beau Cox M.D. on 02/10/2024 at 14:05 Approved by: Beau Cox M.D. on 02/10/2024 at 14:18
[2024-02-09 18:28] LABS: Add Manual Diff / Slide Review NO; Basophils Absolute Auto 100 /uL (0-100); Basophils Percent Auto 0.7 % (0-2); Eosinophils Absolute Auto 400 /uL (0-450); Eosinophils Percent Auto 4.9 % (2-4); Hematocrit 40.2 % (36-46); Hemoglobin 13.5 g/dL (12.0-16.0); Lymphocytes Absolute Auto 3100 /uL (1100-4500); Lymphocytes Percent Auto 33.5 % (25-40); Mean Corpuscular HGB Conc 33.7 % (30-36); Mean Corpuscular Hemoglobin 30.2 PG (26-34); Mean Corpuscular Volume 89.5 fL (80-100); Monocytes Absolute Auto 600 /uL (0-900); Monocytes Percent Auto 6.8 % (3-14); Neutrophils Absolute Auto 4900 /uL (1500-7000); Neutrophils Percent Auto 54.1 % (50-75); Platelet Count 308 X10^3/uL (150-400); Red Blood Cell Count 4.49 X10^6/uL (4.0-5.2); Red Cell Distribution Width 12.6 % (11.6-14.8); White Blood Cell Count 9.1 X10^3/uL (4.5-11.0)
[2024-02-09 18:57] LABS: HEMOLYSIS < 15 (0-50); Iron 83 ug/dL (37-170)
[2024-02-09 19:00] LABS: Alanine Aminotransferase 17 IU/L (<35); Albumin 4.5 g/dL (3.5-5.0); Albumin Globulin Ratio 1.8 (1.0-2.8); Alkaline Phosphatase 51 U/L (38-126); Aspartate Aminotransferase 22 IU/L (14-36); BUN Creatinine Ratio 20.6 (6-22); Bilirubin Total 0.4 mg/dL (0.2-1.3); Blood Urea Nitrogen 28 mg/dL (7-17); Calcium 9.8 mg/dL (8.4-10.2); Carbon Dioxide 28 mmol/L (22-32); Chloride 103 mmol/L (98-107); Estimated Glomerular Filt Rate 38 mL/min (>60); Globulin 2.5 g/dL (1.7-4.1); Glucose 172 mg/dL (80-110); HEMOLYSIS < 15 (0-50); Potassium 4.9 mmol/L (3.4-5.1); Sodium 136 mmol/L (137-145)
[2024-02-09 19:09] LABS: Percent Iron Saturation 26 % (15-50); Total Iron Binding Capacity 320 ug/dL (265-497); Transferrin 270 mg/dL (206-381)
[2024-02-09 19:18] LABS: Free T4, Direct Thyroxine 1.19 ng/dL (0.78-2.19)
[2024-02-09 19:51] LABS: Vitamin B12 452 pg/mL (239-931)
[2024-02-09 21:07] LABS: Hemoglobin A1C% w Est Avg Glu 6.6 % (4.0-6.0)
[2024-02-11 10:41] LABS: Levetiracetam Keppra 39.7 ug/mL (10.0-40.0)
== END ==
PROVIDERS: PCP Family Medicine; Referring Provider Family Medicine; Visit Provider Family Medicine
DX: M16.11 Unilateral primary osteoarthritis, right hip (principal); M41.9 Scoliosis, unspecified; M43.16 Spondylolisthesis, lumbar region; M51.36 Other intervertebral disc degeneration, lumbar region; M43.8X6 Other specified deforming dorsopathies, lumbar region; M85.841 Other specified disorders of bone density and structure, right hand; M85.842 Other specified disorders of bone density and structure, left hand; M79.641 Pain in right hand; M79.642 Pain in left hand; M25.551 Pain in right hip; M54.9 Dorsalgia, unspecified; R56.9 Unspecified convulsions; E11.22 Type 2 diabetes mellitus with diabetic chronic kidney disease; N18.9 Chronic kidney disease, unspecified; E78.5 Hyperlipidemia, unspecified; E03.9 Hypothyroidism, unspecified
CPT/HCPCS: 36415; 72100; 73130; 73502; 80053; 80177; 82607; 83036; 83540; 83550; 84439; 84443; 85025

== ENCOUNTER → 2025-02-20 08:29 | Outpatient (CLI) | payer MEDICARE, OTHER, SELFPAY ==
[2022-09-15 18:10] VITALS: BMI 27.2
--- NOTE | 2025-02-20 08:32 | DI.RAD.S_ITS ---
PROCEDURE: XR RIBS RT MIN 3V W CXR 1V INDICATIONS: Atraumatic localizing right rib pain mid axillary line ribs TECHNIQUE: 2 views of the ribs were acquired, along with a single view chest. COMPARISON: None. FINDINGS: Heart, mediastinum and pulmonary vascular: Heart is normal in size and configuration. Small hiatal hernia noted. Mediastinum is otherwise normal. Pulmonary vascular is normal. Lungs: Clear Pleural spaces: Normal-no effusions or pneumothorax. Moderate elevation right diaphragm Bones and soft tissues: Normal right ribs IMPRESSION: No acute cardiopulmonary disease. Small hiatal hernia Moderate elevation right diaphragm. Right ribs normal Dictated by: Mart Torres M.D. on 02/21/2025 at 11:53 Approved by: Mart Torres M.D. on 02/21/2025 at 11:54
[2025-02-20 10:16] LABS: Hemoglobin A1C% w Est Avg Glu 6.3 % (4.0-6.0)
[2025-02-20 10:18] LABS: Alanine Aminotransferase 16 IU/L (<35); Albumin 4.5 g/dL (3.5-5.0); Alkaline Phosphatase 52 U/L (38-126); Aspartate Aminotransferase 22 IU/L (14-36); BUN Creatinine Ratio 14.2 (6-22); Bilirubin Total 0.7 mg/dL (0.2-1.3); Blood Urea Nitrogen 18 mg/dL (7-17); Calcium 10.3 mg/dL (8.4-10.2); Carbon Dioxide 26 mmol/L (22-32); Chloride 98 mmol/L (98-107); Estimated Glomerular Filt Rate 41 mL/min (>60); Globulin 2.3 g/dL (1.7-4.1); Glucose 140 mg/dL (70-99); HEMOLYSIS < 15 (0-50); Potassium 4.9 mmol/L (3.4-5.1); Sodium 134 mmol/L (137-145); Total Protein 6.8 g/dL (6.3-8.2)
[2025-02-20 10:50] LABS: Thyroid Stimulating Hormone 1.88 uIU/mL (0.47-4.68)
== END ==
PROVIDERS: PCP Family Medicine; Referring Provider Family Medicine; Visit Provider Family Medicine
DX: E11.9 Type 2 diabetes mellitus without complications (principal); R07.81 Pleurodynia; N18.32 Chronic kidney disease, stage 3b; E78.5 Hyperlipidemia, unspecified; E03.9 Hypothyroidism, unspecified; R56.9 Unspecified convulsions
CPT/HCPCS: 36415; 71101; 80053; 80177; 83036; 84436; 84443

== ENCOUNTER → 2025-02-28 10:04 | Outpatient (CLI) | payer MEDICARE, OTHER, SELFPAY ==
[2022-09-15 18:10] VITALS: BMI 27.2
--- NOTE | 2025-02-28 10:06 | DI.RAD.S_ITS ---
PROCEDURE: XR DEXA AXIAL SKELETON INDICATIONS: screening COMPARISON: [facility], , XR DEXA AXIAL SKELETON, 11/19/2021, 11:42. FINDINGS: Lumbar Spine: L1-L4. Bone mineral density 1.013 g/cm2, T score -0.3, no significant interval change. Left Femoral Neck: Bone mineral density 0.594 g/cm2, T score -2.3. Left Hip: Bone mineral density 0.723 g/cm2, T score -1.8, no significant interval change.. Fracture Risk Calculation (when applicable): 10-year fracture risk of a major osteoporotic fracture 17 percent and of a hip fracture 5.5 percent. (T score greater or equal to -1.0 to: NORMAL) (T score from -1.1 to -2.4: OSTEOPENIA) (T score less than or equal to -2.5: OSTEOPOROSIS) IMPRESSION: Osteopenia. No significant change. Follow-up guidelines as follows: Osteoporosis: Consider a repeat DEXA and Vertebral Fracture Assessment (VFA) exam in 2 years or sooner if medically necessary, to reassess this patient's status. Osteopenia: Consider a repeat DEXA in 2-3 years to reassess this patient's status, or if there is a new clinical indication. Normal: Consider a repeat DEXA in 5 years or sooner, or if there is a new clinical indication. All treatment decisions require clinical judgment and consideration of individual patient factors, including patient preferences, comorbidities, previous drug use, risk factors not captured in the FRAX model (e.g., frailty, falls, vitamin D deficiency, increased bone turnover, interval significant decline in bone density ) and possible under- or over-estimation of fracture risk by FRAX. In addition, the NOF Guide recommends that FDA-approved medical therapies be considered in postmenopausal women and men age >= 50 years with a: * Hip or vertebral (clinical or morphometric) fracture * T-score of <=-2.5 at the spine or hip * Ten-year fracture probability by FRAX of >= 3% for hip fracture or >=20% for major osteoporotic fracture. Dictated by: Speedy Santos M.D. on 02/28/2025 at 13:41 Approved by: Speedy Santos M.D. on 02/28/2025 at 13:43
== END ==
LOC: RAD 10:05
PROVIDERS: PCP Family Medicine; Referring Provider Family Medicine; Visit Provider Family Medicine
DX: M81.0 Age-related osteoporosis without current pathological fracture (principal); M85.89 Other specified disorders of bone density and structure, multiple sites; S32.020A Wedge compression fracture of second lumbar vertebra, initial encounter for closed fracture
CPT/HCPCS: 77080

== ENCOUNTER → 2025-03-08 14:32 | Outpatient (CLI) | payer MEDICARE, OTHER, SELFPAY ==
[2022-09-15 18:10] VITALS: BMI 27.2
--- NOTE | 2025-03-08 14:33 | DI.RAD.S_ITS ---
PROCEDURE: XR HIP W PEL IF DONE RT 2V INDICATIONS: Progressive right hip pain TECHNIQUE: Two views of the hip were acquired. COMPARISON: [facility], CR, XR HIP W PEL IF DONE RT 2V, 02/09/2024, 17:43. FINDINGS: Bones: There are no osseous abnormalities. SI and hip joints: Mild degeneration both SI and hip joints noted. Moderate L5-S1 degenerative disc and facet disease Soft tissues: No soft tissue swelling, calcification or mass. IMPRESSION: Mild degeneration-stable. Consider fluoroscopic guided injection of the right hip , as a diagnostic test , to determine whether the right hip is the pain source. It may also provide short/intermediate term pain relief Dictated by: Mart Torres M.D. on 03/09/2025 at 11:31 Approved by: Mart Torres M.D. on 03/09/2025 at 11:34
== END ==
PROVIDERS: PCP Family Medicine; Referring Provider Family Medicine; Visit Provider Family Medicine
DX: M16.0 Bilateral primary osteoarthritis of hip (principal); M51.379 Other intervertebral disc degeneration, lumbosacral region without mention of lumbar back pain or lower extremity pain; M47.817 Spondylosis without myelopathy or radiculopathy, lumbosacral region; M47.818 Spondylosis without myelopathy or radiculopathy, sacral and sacrococcygeal region; M25.551 Pain in right hip; I10 Essential (primary) hypertension; M81.0 Age-related osteoporosis without current pathological fracture; E03.9 Hypothyroidism, unspecified; G89.29 Other chronic pain
CPT/HCPCS: 73502

== ENCOUNTER 2025-06-06 14:30 | Outpatient (RCR) | payer MEDICARE, OTHER, SELFPAY ==
[2022-09-15 18:10] VITALS: BMI 27.2
--- NOTE | 2025-03-29 19:19 | PT.OIE ---
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) Past Medical History (Last Reviewed 03/08/25 @ 14:17 by Jt Saldaña DO) Arthritis Cataracts, bilateral Chronic kidney disease Chronic right hip pain Compression fracture of L2 CVA (cerebral vascular accident) (2019) Diabetes Greater trochanteric bursitis of left hip History of Schaeffer's esophagus History of GI bleed (1973) Hyperlipemia Hypertension Hypothyroidism Iron deficiency anemia Left knee pain Low back pain Osteopenia Osteoporosis Polyarthralgia Preventative health care Renal insufficiency Rib pain on right side Seizures Subdural hematoma (07/2019) Tinea Past Surgical History (Last Reviewed 03/08/25 @ 14:17 by Jt Saldaña DO) History of knee replacement (2008) Hx of bilateral cataract extraction (2019) Hx of cholecystectomy (2019) Hx of craniotomy (08/24/19) Visit Care Team Role Provider Type Jt Saldaña DO Attending Provider Physician Family Provider Primary Care Provider Referring Provider Specialty: [facility] Address: [address] [place] [address] Email: [email or web address] Physical Therapy Initial Evaluation PT-OP-A Visit Information Start: 03/29/25 10:48 Freq: Status: Active Protocol: Document 03/29/25 10:49 ROCK CRUSHER OPERATOR (Rec: 03/29/25 11:38 ROCK CRUSHER OPERATOR Laptop) Out-Patient Physical Therapy Visit Information Visit Information Visit Type Initial Evaluation Visit Start Time 10:49 Visit Stop Time 11:37 Visit Number 1 Number of FOREST FIRE CONTROL OFFICER Visits 0 Evaluation Information Evaluation Date 03/29/25 PT-OP-B Current Condition Start: 03/29/25 10:48 Freq: Status: Active Protocol: Document 03/29/25 10:49 ROCK CRUSHER OPERATOR (Rec: 03/29/25 11:38 ROCK CRUSHER OPERATOR Laptop) Current Condition History of Current Condition Onset Date a little over a year ago Current Complaints R low back, hip, and leg pain, mid back pain. History of Current Pt ambs into session slightly unsteady without AD but Condition ind without LOB. Pt reports pain to R low back and R hip down back of leg that started about 1 year ago. Walking distances makes R hip pain at front of hip worse, pain at back of hip is random with no specific activity or position that exacerbates it. Tylenol and rest help improve posterior hip pain. Pt also reports B mid back pain which makes standing and activity difficult, heat and rest help improve mid back pain. Pt feels very limited in activity such as housework, can only tolerate 10-15 mins at a time before needing to sit. Current pain level sitting at rest is 4/10 to mid back and 1/10 pain to post R hip. Prior Treatments and H/o R TKA in 2008, L TKA in Aug 2022. L has been Tests popping, painful, and weak lately Treatment Goals Patient/Caregiver To reduce pain so she can do more, such as house work Goals PT-OP-C Subjective Start: 03/29/25 10:48 Freq: Status: Active Protocol: Document 03/29/25 10:49 ROCK CRUSHER OPERATOR (Rec: 03/29/25 14:21 ROCK CRUSHER OPERATOR Laptop) Patient Questionnaires Lower Extremity Functional Scale LEFS Score 34/80 LEFS Impairment 40 to 59% Impaired (Score 32-47) Oswestry Low Back Index Oswestry Score 34% PT-OP-F Manual Assessment Start: 03/29/25 10:48 Freq: Status: Active Protocol: Document 03/29/25 10:49 ROCK CRUSHER OPERATOR (Rec: 03/29/25 14:21 ROCK CRUSHER OPERATOR Laptop) Manual Assessments Other Manual Assessments Other Manual Significant tenderness and decreased soft tissue Assessments mobility to R glute med, piriformis, TFL, ITB, R lumbar paraspinals, R superior portion of latissimus PT-OP-J Posture/Palpation/Skin Start: 03/29/25 10:48 Freq: Status: Active Protocol: Document 03/29/25 10:49 ROCK CRUSHER OPERATOR (Rec: 03/29/25 14:21 ROCK CRUSHER OPERATOR Laptop) Posture Evaluation Comments Posture Comments Sitting: significant forward flexed posture with B forward rounded shoulders and thoracic kyphosis with noted scoliosis with R thoracic convexity and elevated R shoulder>L. PT-OP-M Strength Start: 03/29/25 10:48 Freq: Status: Active Protocol: Document 03/29/25 10:49 ROCK CRUSHER OPERATOR (Rec: 03/29/25 11:38 ROCK CRUSHER OPERATOR Laptop) Hip Strength Hip Manual Muscle Testing L Flexion (L2) 4 Good Extension (S1) 3+ Fair+ Abduction 4 Good Comments resisted hip flex painful to ant hip AROM and PROM WNL R Flexion (L2) 4- Good- Extension (S1) 2+ Poor+ Abduction 3- Fair- Comments resisted hip flex painful to ant hip, resisted abd painful to post hip and groin, active hip ext limited by pain PROM limited in hip flex and ER d/t pain to ant hip and IR d/t firm end field Passive ER in sitting 45 degrees, IR in sitting 35 Knee Strength Knee Manual Muscle Testing L Flexion (S2) 4 Good Extension (L3) 5 Normal R Flexion (S2) 5 Normal Extension (L3) 5 Normal PT-OP-T Assessment and Plan Start: 03/29/25 10:48 Freq: Status: Active Protocol: Document 03/29/25 10:49 ROCK CRUSHER OPERATOR (Rec: 03/29/25 11:38 ROCK CRUSHER OPERATOR Laptop) Physical Therapy Assessment Rehab Potential Rehabilitation Good Potential Evaluation Complexity Number of Personal 1-2 Factors/ Comorbidities Number of Body 4 or More Systems Impaired Clinical Stable Presentation at Evaluation Impairments Impairments Activity Tolerance,Balance,Functional Activities, Functional Mobility,Gait,Pain,Posture,ROM,Soft Tissue Mobility,Strength Goals 3 Impairment Balance Group Home Goal (LTG) Pt will perform R and L SLS at 10s each leg on even floor in order to improve balance, safety, and functional mobility. LTG Duration 06/21/25 2 Impairment Lack of HEP Short Term Goal (STG Pt will be ind with progressive HEP at least 5x/wk for ) 3 wks in order to progress towards LTGs. STG Duration 05/10/25 1 Impairment Activity tolerance Impairment Only able to stand to perform housework for 10-15 mins at a time before needing to sit Restaurant Associate Goal (LTG) Pt will tolerate static and dynamic standing/reaching/ bending activities to simulate housework for 30 mins without seated rest break needed to improve function. LTG Duration 06/21/25 Assessment Summary Assessment Pt presents with pain down post R leg, pain to ant R hip with resisted hip movements, pain to mid back on R side, decreased balance during gait, and decreased standing activity endurance. Pt found to have decreased strength to B hips, decreased ROM d/t poor muscle flexibility and pain to R hip especially in flex, ext, and IR, decreased soft tissue mobility and very sensitive to light touch at R lat, piriformis, and TFL/ ITB, and impaired posture in addition to scoliosis with R thoracic convexity. Pt will highly benefit from skilled PT intervention to address deficits and improve function and safety. Physical Therapy Plan Frequency and Duration Frequency of 2x/Week Treatment Duration of 12 treatment (weeks) Plan of Care Start 03/29/25 Date Plan of Care End 06/21/25 Date Therapeutic Interventions Therapeutic Balance Training,Gait Training,Home Exercise Program, Interventions Joint Mobilizations,Manual Therapy,Neuromuscular Re- education,Patient/Caregiver Education,Soft Tissue Mobilization,Taping,Therapeutic Activities,Therapeutic Exercises Modalities Cold Pack/Ice Massage,Hot Packs,Iontophoresis Next Visit Focus/Plan Next Note Type Treatment Note Next Visit Plan MT to reduce inflammation around R piriformis, ITB, and lat. Assess BUE AROM
--- NOTE | 2025-03-29 19:19 | PT.OPPOC ---
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) Visit Care Team Role Provider Type Jt Saldaña DO Attending Provider Physician Family Provider Primary Care Provider Referring Provider Specialty: Family Practice Address: [address] [place] [address], [facility] Email: [email or web address], [email or web address] Plan Of Care PT-OP-B Current Condition Start: 03/29/25 10:48 Freq: Status: Active Protocol: Document 03/29/25 10:49 TRAIN EXAMINER (Rec: 03/29/25 11:38 TRAIN EXAMINER Laptop) Current Condition History of Current Condition Onset Date a little over a year ago Current Complaints R low back, hip, and leg pain, mid back pain. History of Current Pt ambs into session slightly unsteady without AD but Condition ind without LOB. Pt reports pain to R low back and R hip down back of leg that started about 1 year ago. Walking distances makes R hip pain at front of hip worse, pain at back of hip is random with no specific activity or position that exacerbates it. Tylenol and rest help improve posterior hip pain. Pt also reports B mid back pain which makes standing and activity difficult, heat and rest help improve mid back pain. Pt feels very limited in activity such as housework, can only tolerate 10-15 mins at a time before needing to sit. Current pain level sitting at rest is 4/10 to mid back and 1/10 pain to post R hip. Prior Treatments and H/o R TKA in 2008, L TKA in Aug 2022. L has been Tests popping, painful, and weak lately Treatment Goals Patient/Caregiver To reduce pain so she can do more, such as house work Goals PT-OP-T Assessment and Plan Start: 03/29/25 10:48 Freq: Status: Active Protocol: Document 03/29/25 10:49 TRAIN EXAMINER (Rec: 03/29/25 11:38 TRAIN EXAMINER Laptop) Physical Therapy Assessment Rehab Potential Rehabilitation Good Potential Evaluation Complexity Number of Personal 1-2 Factors/ Comorbidities Number of Body 4 or More Systems Impaired Clinical Stable Presentation at Evaluation Impairments Impairments Activity Tolerance,Balance,Functional Activities, Functional Mobility,Gait,Pain,Posture,ROM,Soft Tissue Mobility,Strength Goals 3 Impairment Balance Skilled Nursing Goal (LTG) Pt will perform R and L SLS at 10s each leg on even floor in order to improve balance, safety, and functional mobility. LTG Duration 06/21/25 2 Impairment Lack of HEP Short Term Goal (STG Pt will be ind with progressive HEP at least 5x/wk for ) 3 wks in order to progress towards LTGs. STG Duration 05/10/25 1 Impairment Activity tolerance Impairment Only able to stand to perform housework for 10-15 mins at a time before needing to sit Skilled Nursing Goal (LTG) Pt will tolerate static and dynamic standing/reaching/ bending activities to simulate housework for 30 mins without seated rest break needed to improve function. LTG Duration 06/21/25 Assessment Summary Assessment Pt presents with pain down post R leg, pain to ant R hip with resisted hip movements, pain to mid back on R side, decreased balance during gait, and decreased standing activity endurance. Pt found to have decreased strength to B hips, decreased ROM d/t poor muscle flexibility and pain to R hip especially in flex, ext, and IR, decreased soft tissue mobility and very sensitive to light touch at R lat, piriformis, and TFL/ ITB, and impaired posture in addition to scoliosis with R thoracic convexity. Pt will highly benefit from skilled PT intervention to address deficits and improve function and safety. Physical Therapy Plan Frequency and Duration Frequency of 2x/Week Treatment Duration of 12 treatment (weeks) Plan of Care Start 03/29/25 Plan of Care End 06/21/25 Date Therapeutic Interventions Therapeutic Balance Training,Gait Training,Home Exercise Program, Interventions Joint Mobilizations,Manual Therapy,Neuromuscular Re- education,Patient/Caregiver Education,Soft Tissue Mobilization,Taping,Therapeutic Activities,Therapeutic Exercises Modalities Cold Pack/Ice Massage,Hot Packs,Iontophoresis Next Visit Focus/Plan Next Note Type Treatment Note Next Visit Plan MT to reduce inflammation around R piriformis, ITB, and lat. Assess BUE AROM Plan of Care Dates Plan of Care Start Date 03/29/25 Plan of Care End Date 06/21/25 Electronically Signed by: Allison Schumacher, PT 03/29/25 2180 If you are in agreement with this Plan of Care, please return a signed and dated copy. I have reviewed this Plan of Care and certify that the skilled therapy services above are required to meet the patient?s needs. Physician Signature Date Printed Name and Credentials Clinical Instructor Signature Printed Name and Credentials
--- NOTE | 2025-04-02 12:18 | PT.OTN ---
Current Diagnoses Other chronic pain (04/02/25) Pain in right hip (04/02/25) Pleurodynia (04/02/25) Physical Therapy Treatment Note PT-OP-A Visit Information Start: 03/29/25 10:48 Freq: Status: Active Protocol: Document 04/02/25 11:34 SP (Rec: 04/02/25 12:34 SP [id number]) Out-Patient Physical Therapy Visit Information Visit Information Visit Type Treatment Note Visit Start Time 11:34 Visit Stop Time 12:18 Visit Number 2 (PN by 04/29/25) Number of LODGE ATTENDANT Visits 1 PT-OP-B Current Condition Start: 03/29/25 10:48 Freq: Status: Active Protocol: Document 03/29/25 10:49 MATERIAL EXPEDITER (Rec: 03/29/25 11:38 MATERIAL EXPEDITER Laptop) Current Condition History of Current Condition Onset Date a little over a year ago Current Complaints R low back, hip, and leg pain, mid back pain. History of Current Pt ambs into session slightly unsteady without AD but Condition ind without LOB. Pt reports pain to R low back and R hip down back of leg that started about 1 year ago. Walking distances makes R hip pain at front of hip worse, pain at back of hip is random with no specific activity or position that exacerbates it. Tylenol and rest help improve posterior hip pain. Pt also reports B mid back pain which makes standing and activity difficult, heat and rest help improve mid back pain. Pt feels very limited in activity such as housework, can only tolerate 10-15 mins at a time before needing to sit. Current pain level sitting at rest is 4/10 to mid back and 1/10 pain to post R hip. Prior Treatments and H/o R TKA in 2008, L TKA in Aug 2022. L has been Tests popping, painful, and weak lately Treatment Goals Patient/Caregiver To reduce pain so she can do more, such as house work Goals PT-OP-C Subjective Start: 03/29/25 10:48 Freq: Status: Active Protocol: Document 04/02/25 11:34 SP (Rec: 04/02/25 12:34 SP [id number]) OP-PT Subjective Patient Comments Patient Comments Pt states her R hip front/side/back and across low back painful and sensitive to pressure. Has been dealing with it for about 1 hr. She can only stand activities 5 min before needs to stop/sit due to back pain. PT-OP-F Manual Assessment Start: 03/29/25 10:48 Freq: Status: Active Protocol: Document 03/29/25 10:49 MATERIAL EXPEDITER (Rec: 03/29/25 14:21 MATERIAL EXPEDITER Laptop) Manual Assessments Other Manual Assessments Other Manual Significant tenderness and decreased soft tissue Assessments mobility to R glute med, piriformis, TFL, ITB, R lumbar paraspinals, R superior portion of latissimus PT-OP-J Posture/Palpation/Skin Start: 03/29/25 10:48 Freq: Status: Active Protocol: Document 03/29/25 10:49 MATERIAL EXPEDITER (Rec: 03/29/25 14:21 MATERIAL EXPEDITER Laptop) Posture Evaluation Comments Posture Comments Sitting: significant forward flexed posture with B forward rounded shoulders and thoracic kyphosis with noted scoliosis with R thoracic convexity and elevated R shoulder>L. PT-OP-M Strength Start: 03/29/25 10:48 Freq: Status: Active Protocol: Document 03/29/25 10:49 MATERIAL EXPEDITER (Rec: 03/29/25 11:38 MATERIAL EXPEDITER Laptop) Hip Strength Hip Manual Muscle Testing L Flexion (L2) 4 Good Extension (S1) 3+ Fair+ Abduction 4 Good Comments resisted hip flex painful to ant hip AROM and PROM WNL R Flexion (L2) 4- Good- Extension (S1) 2+ Poor+ Abduction 3- Fair- Comments resisted hip flex painful to ant hip, resisted abd painful to post hip and groin, active hip ext limited by pain PROM limited in hip flex and ER d/t pain to ant hip and IR d/t firm end field Passive ER in sitting 45 degrees, IR in sitting 35 Knee Strength Knee Manual Muscle Testing L Flexion (S2) 4 Good Extension (L3) 5 Normal R Flexion (S2) 5 Normal Extension (L3) 5 Normal PT-OP-Q Treatments Start: 03/29/25 10:48 Freq: Status: Active Protocol: Document 04/02/25 11:34 SP (Rec: 04/02/25 12:34 SP [id number]) Therapeutic Exercises Supine Exercises Stretching Supine Exercise Name 1. HS 2. Pirformis (IR) 3. Fig 4 (ER) 4. Colin stretch - added to HEp /cHO Side right Resistance R>L Equipment Used use towel to Reps/Minutes 30sec each Manual Therapy Treatment Consent Patient gave verbal Yes consent for manual treatment Soft Tissue Mobilization back Body Location R ES & QL Comments gentle R hip Body Location R PF, glut med, TFL Comments gentle broad STM- Manual Traction hip Details R lateral, posterolateral, anteromedial use strap Body Position Grade II Comments pressure thigh lateral and posterolateral (piriformis positioning), anteromedial good feedback with active hip ER/IR. LS Details Grade II Comments manual gentle traction with strap at calves- no benefit , only felt pressure on calves so DC. Self-Care/Home Management Treatment Education Patient Education Body Mechanics,Home Exercise Program,Joint Protection, Pain Management,Posture,Safety Other Education education benefits of manual and flexibility initiated stretching with HOs for start mobility comfort. Discussed anatomy of Pelvic Florr and abdominal enagagement and how relates to body mechanics supportive to back comfort and end tx with STS con/ eccentric for core support. Next tx initiated hooklying TA core progression would be beneficial. PT-OP-T Assessment and Plan Start: 03/29/25 10:48 Freq: Status: Active Protocol: Document 04/02/25 11:34 SP (Rec: 04/02/25 12:34 SP [id number]) Physical Therapy Assessment Goals 3 Impairment Balance Coil Winding Machines Set Up Mechanic Goal (LTG) Pt will perform R and L SLS at 10s each leg on even floor in order to improve balance, safety, and functional mobility. LTG Duration 06/21/25 2 Impairment Lack of HEP Short Term Goal (STG Pt will be ind with progressive HEP at least 5x/wk for ) 3 wks in order to progress towards LTGs. STG Duration 05/10/25 1 Impairment Activity tolerance Impairment Only able to stand to perform housework for 10-15 mins at a time before needing to sit Coil Winding Machines Set Up Mechanic Goal (LTG) Pt will tolerate static and dynamic standing/reaching/ bending activities to simulate housework for 30 mins without seated rest break needed to improve function. LTG Duration 06/21/25 Assessment Summary Assessment Pt's pelvic alignment neutral at arrival assessed in standing. Pt very sensitive to pressure so not sure will be benificial. Responded well to stretching instruction with HOs for home carryover set up and performance today. Pt reported R hip felt little better end tx leaving. Discussed be mindful of activities challengeing let usknow so can help come up with Ex to help support improvement. Physical Therapy Plan Frequency and Duration Frequency of 2x/Week Treatment Duration of 12 treatment (weeks) Plan of Care Start 03/29/25 Plan of Care End 06/21/25 Date Therapeutic Interventions Therapeutic Balance Training,Gait Training,Home Exercise Program, Interventions Joint Mobilizations,Manual Therapy,Neuromuscular Re- education,Patient/Caregiver Education,Soft Tissue Mobilization,Taping,Therapeutic Activities,Therapeutic Exercises Modalities Cold Pack/Ice Massage,Hot Packs,Iontophoresis Next Visit Focus/Plan Next Note Type Treatment Note Next Visit Plan Next discuss sleep positioning with pillow support, start gentle core progression and hip strengthening if tolerated, ask response to LE stretching. Assess BUE AROM (didn;t get to 2nd visit) POC: MT to reduce inflammation around R piriformis, ITB , and lat.
--- NOTE | 2025-04-05 11:36 | PT.OTN ---
Current Diagnoses Other chronic pain (04/05/25) Pain in right hip (04/05/25) Pleurodynia (04/05/25) Physical Therapy Treatment Note PT OP: Full Body Start: 04/05/25 10:44 Freq: Status: Active Protocol: Document 04/05/25 10:45 OFFICE CLINICIAN (Rec: 04/05/25 11:36 OFFICE CLINICIAN Laptop) Out-Patient Physical Therapy Visit Information Visit Information Visit Type Treatment Note Visit Start Time 10:48 Visit Stop Time 11:32 Visit Number 3 Number of CREW CHIEF Visits 0 Progress Note Due 04/28/25 Evaluation Information Evaluation Date 03/29/25 OP-PT Subjective Patient Comments Patient Comments Pt reports current pain 3-4 in L knee, reports this is normal pain for her. Pt reports she felt good after last session of stretches and has been able to practice HEP without questions. Shoulder Goniometric Range of Motion Shoulder L Testing Position Standing Flexion 131 Abduction 125 External Rotation at 67 90 degrees Abduction Internal Rotation T7 Behind Back (text) Comments all without pain R Shoulder ROM WFL No Testing Position Standing Flexion 143 Abduction 101 External Rotation at 60 90 degrees Abduction Internal Rotation T8 Behind Back (text) Comments a little pain with ER Cardio Equipment Recumbent Elliptical (NuStep) Duration (Minutes) 5 Resistance L3 Seat Position 6 Other BUEs and BLEs for warm up, slight increased pain post R knee Therapeutic Exercises Supine Exercises PPT Reps/Minutes x10 Comments initiation of PPT, no TC needed Bridges Reps/Minutes x10 Sidelying Exercises Clamshells Side bilateral Reps/Minutes x10 Sitting Exercises Scap retract Side bilateral Reps/Minutes x10 Comments mild TC Manual Therapy Treatment Consent Patient gave verbal Yes consent for manual treatment Soft Tissue Mobilization back Body Location R lumbar paraspinals Comments gentle R hip Body Location R PF, glut med, TFL Comments gentle broad STM and MFR Physical Therapy Assessment Goals 3 Impairment Balance Intermediate Goal (LTG) Pt will perform R and L SLS at 10s each leg on even floor in order to improve balance, safety, and functional mobility. LTG Duration 06/21/25 2 Impairment Lack of HEP Short Term Goal (STG Pt will be ind with progressive HEP at least 5x/wk for ) 3 wks in order to progress towards LTGs. STG Duration 05/10/25 1 Impairment Activity tolerance Impairment Only able to stand to perform housework for 10-15 mins at a time before needing to sit Metallurgical Or Materials Technician Goal (LTG) Pt will tolerate static and dynamic standing/reaching/ bending activities to simulate housework for 30 mins without seated rest break needed to improve function. LTG Duration 06/21/25 Assessment Summary Assessment Pt tolerated gentle STM to R hip and ITB well, introduced B hip strengthening and TA activation and pt performed well with minimal cueing needed for form. Physical Therapy Plan Frequency and Duration Frequency of 2x/Week Treatment Duration of 12 treatment (weeks) Plan of Care Start 03/29/25 Date Plan of Care End 06/21/25 Date Therapeutic Interventions Therapeutic Balance Training,Gait Training,Home Exercise Program, Interventions Joint Mobilizations,Manual Therapy,Neuromuscular Re- education,Patient/Caregiver Education,Soft Tissue Mobilization,Taping,Therapeutic Activities,Therapeutic Exercises Modalities Cold Pack/Ice Massage,Hot Packs,Iontophoresis Next Visit Focus/Plan Next Note Type Treatment Note Next Visit Plan review clamshells and bridges, progress PPT to hold and breathing, scapular strengthening, gentle thoracic rotation/ext
--- NOTE | 2025-04-09 14:33 | PT.OTN ---
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 Therapeutic Exercises Supine Exercises core series Supine Exercise Name October,- added to HEP- with HO Reps/Minutes 20 reps alternating Bridges Reps/Minutes x10 Comments good form, no pain Stretching Supine Exercise Name 1. HS 2. Pirformis (IR) 3. Fig 4 (ER) 4. Colin stretch- added to HEp /cHO Side right Resistance R>L Equipment Used use towel to Reps/Minutes 30sec each Comments fig 4 opp LE straight today 04/09/25 Sidelying Exercises Clamshells Side bilateral Resistance Tb #1 Reps/Minutes x10 reps Sitting Exercises Thoracic Rotation Sitting Exercise added to HEP with HO Name Side bilateral Resistance AROM Equipment Used arms across chest Reps/Minutes 10 reps alternate sides Comments pnfree range Manual Therapy Treatment Consent Patient gave verbal Yes consent for manual treatment Soft Tissue Mobilization back Body Location R lumbar paraspinals Comments gentle- sensitive to pressure and more broad R hip Body Location R PF, glut med, TFL Comments gentle broad STM and MFR- sensitive Joint Mobilizations Hip Joint anteromedial with strap Comments MWM hip ER/IR (R>L)- no pain Self-Care/Home Management Treatment Education Patient Education Body Mechanics,Pain Management,Posture,Safety Other Education Ed safety use pillows spinal & hip and spinal alignment SL and hookyling for comfort. - SL primarily, challenge keeping pillow between knees and not waking up/can't get back to sleep. Physical Therapy Assessment Goals 3 Impairment Balance Senior Care Goal (LTG) Pt will perform R and L SLS at 10s each leg on even floor in order to improve balance, safety, and functional mobility. LTG Duration 06/21/25 2 Impairment Lack of HEP Short Term Goal (STG Pt will be ind with progressive HEP at least 5x/wk for ) 3 wks in order to progress towards LTGs. STG Duration 05/10/25 1 Impairment Activity tolerance Impairment Only able to stand to perform housework for 10-15 mins at a time before needing to sit Core Shaper Top Goal (LTG) Pt will tolerate static and dynamic standing/reaching/ bending activities to simulate housework for 30 mins without seated rest break needed to improve function. LTG Duration 06/21/25 Assessment Summary Assessment Pt good feedback response to manual and inclusion of core HEP AROM and hip strengthening against resistance with cuing for set up and proper form. Education on spinal alignment for comfort sleeping SL with use pillow propping, good feedback resposne during tx, provided HO for carryover set up h ome. Physical Therapy Plan Frequency and Duration Frequency of 2x/Week Treatment Duration of 12 treatment (weeks) Plan of Care Start 03/29/25 Date Plan of Care End 06/21/25 Date Therapeutic Interventions Therapeutic Balance Training,Gait Training,Home Exercise Program, Interventions Joint Mobilizations,Manual Therapy,Neuromuscular Re- education,Patient/Caregiver Education,Soft Tissue Mobilization,Taping,Therapeutic Activities,Therapeutic Exercises Modalities Cold Pack/Ice Massage,Hot Packs,Iontophoresis Next Visit Focus/Plan Next Note Type Treatment Note Next Visit Plan RFecheck sleeping comfort, review clamshells with band and bridges and core series for back /hip comfort, progress PPT to hold and breathing, scapular strengthening, add gentle thoracic ext.
--- NOTE | 2025-04-12 15:20 | PT.OTN ---
Current Diagnoses Other chronic pain (04/12/25) Pain in right hip (04/12/25) Pleurodynia (04/12/25) Physical Therapy Treatment Note PT OP: Full Body Start: 04/05/25 10:44 Freq: Status: Active Protocol: Document 04/12/25 14:37 HEALTH OUTREACH WORKER (Rec: 04/12/25 15:20 HEALTH OUTREACH WORKER Laptop) Out-Patient Physical Therapy Visit Information Visit Information Visit Type Treatment Note Visit Start Time 14:37 Visit Stop Time 15:15 Visit Number 5 Number of ROCK CRUSHER OPERATOR Visits 0 Progress Note Due 04/28/25 OP-PT Subjective Patient Comments Patient Comments Pt reports no pain today and is overall feeling pain to R hip has improved. Has been working consistently Therapeutic Exercises Supine Exercises core series Supine Exercise Name KFO HEP review Reps/Minutes 10 reps alternating Bridges Equipment Used L1 TB attempt Reps/Minutes x10 without band, x2 with band around knees Comments good form, with band terminated d/t HS cramp both reps Sidelying Exercises Clamshells Sidelying Exercise reivew Name Side bilateral Resistance Tb #1 Reps/Minutes x10 reps Comments mod TC to prevent R hip roll back Sitting Exercises Trunk lat flex stretch Side bilateral Reps/Minutes 10x2 Comments no pain Scap retract Side bilateral Reps/Minutes 10x2 Comments decreased L scap movement, added mobilizations with movement Standing Exercises UE elevations Standing Exercise Modified leaning against exercise ball on tall mat Name table Side bilateral Reps/Minutes x10 each side Comments VC to lift head when lifting UEs, good response no pain Cat/Cow Standing Exercise Modified in standing with forearms on wedge on tall mat Name table Reps/Minutes x10 Comments good result, minimal cueing, no pain Physical Therapy Assessment Goals 3 Impairment Balance Manager Event Goal (LTG) Pt will perform R and L SLS at 10s each leg on even floor in order to improve balance, safety, and functional mobility. LTG Duration 06/21/25 2 Impairment Lack of HEP Short Term Goal (STG Pt will be ind with progressive HEP at least 5x/wk for ) 3 wks in order to progress towards LTGs. STG Duration 05/10/25 1 Impairment Activity tolerance Impairment Only able to stand to perform housework for 10-15 mins at a time before needing to sit Manager Event Goal (LTG) Pt will tolerate static and dynamic standing/reaching/ bending activities to simulate housework for 30 mins without seated rest break needed to improve function. LTG Duration 06/21/25 Assessment Summary Assessment Pt tolerated all exercises and thoracic mobility exercises well without pain except for B HS cramping when added TB around knees during bridges. Physical Therapy Plan Frequency and Duration Frequency of 2x/Week Treatment Duration of 12 treatment (weeks) Plan of Care Start 03/29/25 Date Plan of Care End 06/21/25 Date Next Visit Focus/Plan Next Note Type Treatment Note Next Visit Plan sidelying L scapular mobs with movement and STM to rhomboids, supine thoracic ext mobs on horizontal towel roll
--- NOTE | 2025-04-17 12:57 | PT.OTN ---
Current Diagnoses Other chronic pain (04/17/25) Pain in right hip (04/17/25) Pleurodynia (04/17/25) Physical Therapy Treatment Note PT OP: Full Body Start: 04/05/25 10:44 Freq: Status: Active Protocol: Document 04/17/25 10:50 PELLETISING EXTRUDER OPERATOR (Rec: 04/17/25 11:33 PELLETISING EXTRUDER OPERATOR Laptop) Out-Patient Physical Therapy Visit Information Visit Information Visit Type Treatment Note Visit Start Time 10:50 Visit Stop Time 11:31 Visit Number 6 Number of MACHINE CLERICAL VERIFIER Visits 0 Progress Note Due 04/28/25 OP-PT Subjective Patient Comments Patient Comments Pt reports she had a barbeque on Wednesday with walking on uneven ground and had increased pain to B upper back that night, R hip pain is not constant anymore like it was when she first came to PT, L knee pain is chronic when walking. Therapeutic Exercises Supine Exercises Thoracic ext stretch Supine Exercise Name laying on pool noodle Reps/Minutes 1 min each Comments T5, T6, T7 Prone Exercises Is,Ts,Ys Prone Exercise Name Y's, T's only, after STM Side right Reps/Minutes x10 Comments pain free, unable to lay prone for long Standing Exercises Cat/Cow Standing Exercise Modified in standing with forearms on wedge on tall mat Name table Reps/Minutes x10 Comments good result, minimal cueing, no pain Manual Therapy Treatment Consent Patient gave verbal Yes consent for manual treatment Soft Tissue Mobilization back Body Location R rhomboid, lat, lower trap Comments gentle, very sensitive to pressure. with RUE movement in flexion and horizontal abd, gentle stretching to R lat Physical Therapy Assessment Goals 3 Impairment Balance Industrial Safety And Health Specialist Goal (LTG) Pt will perform R and L SLS at 10s each leg on even floor in order to improve balance, safety, and functional mobility. LTG Duration 06/21/25 2 Impairment Lack of HEP Short Term Goal (STG Pt will be ind with progressive HEP at least 5x/wk for ) 3 wks in order to progress towards LTGs. STG Duration 05/10/25 1 Impairment Activity tolerance Impairment Only able to stand to perform housework for 10-15 mins at a time before needing to sit Snf Goal (LTG) Pt will tolerate static and dynamic standing/reaching/ bending activities to simulate housework for 30 mins without seated rest break needed to improve function. LTG Duration 06/21/25 Assessment Summary Assessment Pt tolerated only minimal STM to R rhomboids, lower trap, and lat but significant trigger points, especially tight lat. Pt performed gentle thoracic mobilization on pool noodle followed up with active cat cow, reports feels worked but without pain at end of session. Physical Therapy Plan Frequency and Duration Frequency of 2x/Week Treatment Duration of 12 treatment (weeks) Plan of Care Start 03/29/25 Date Plan of Care End 06/21/25 Date Next Visit Focus/Plan Next Note Type Treatment Note Next Visit Plan gentle STM and stretching to R rhomboid and lat, thoracic and lumbar extensor muscle strengthening
--- NOTE | 2025-04-19 20:06 | PT.OTN ---
Current Diagnoses Other chronic pain (04/19/25) Pain in right hip (04/19/25) Pleurodynia (04/19/25) Physical Therapy Treatment Note PT OP: Full Body Start: 04/05/25 10:44 Freq: Status: Active Protocol: Document 04/19/25 13:52 DISPATCHER MAINTENANCE (Rec: 04/19/25 14:35 DISPATCHER MAINTENANCE Laptop) Out-Patient Physical Therapy Visit Information Visit Information Visit Type Treatment Note Visit Start Time 13:53 Visit Stop Time 14:34 Visit Number 7 Number of CANDLE EXTRUSION MACHINE OPERATOR Visits 0 Progress Note Due 04/28/25 OP-PT Subjective Patient Comments Patient Comments Pt reports she woke up this morning with increased pain to B low back 4-5/10 and neck when rotating to R and L side 4/10, is unsure of the cause. She reports she was a little sore after last session but it did not last long and ended up feeling good. Cardio Equipment Recumbent Elliptical (NuStep) Duration (Minutes) 5 Resistance L3 Seat Position 6 Other BLEs only with cueing for full ROM strides Therapeutic Exercises Supine Exercises DK side to side Supine Exercise Name lumbar rotation Side bilateral Reps/Minutes x5 each side DKTC Side bilateral Equipment Used dowel Reps/Minutes 30s x2 Comments improved after R HF stretch Bridges Supine Exercise Name after HF stretch Reps/Minutes x10 Comments with TA activation and VC for breathing Stretching Supine Exercise Name 1. HF stretch off edge of table Side right Reps/Minutes 1 min x2 Comments with gentle manual MFR proximal to distal direction Manual Therapy Treatment Consent Patient gave verbal Yes consent for manual treatment Soft Tissue Mobilization neck Body Location B UT and B SCM Mobilization Type Rolling Intensity/Depth Superficial Body Position Supine Comments increased tightness R>L, positive results back Body Location B lumbar paraspinals and B glute meds Mobilization Type Rolling Intensity/Depth Superficial Body Position Sidelying Comments gentle, very sensitive to pressure Physical Therapy Assessment Goals 3 Impairment Balance Export Manager Goal (LTG) Pt will perform R and L SLS at 10s each leg on even floor in order to improve balance, safety, and functional mobility. LTG Duration 06/21/25 2 Impairment Lack of HEP Short Term Goal (STG Pt will be ind with progressive HEP at least 5x/wk for ) 3 wks in order to progress towards LTGs. STG Duration 05/10/25 1 Impairment Activity tolerance Impairment Only able to stand to perform housework for 10-15 mins at a time before needing to sit Export Manager Goal (LTG) Pt will tolerate static and dynamic standing/reaching/ bending activities to simulate housework for 30 mins without seated rest break needed to improve function. LTG Duration 06/21/25 Assessment Summary Assessment Focus on decreasing B low back pain and B neck pain this session, tolerated only gentle STM only, good results with DKTC after R hip flexor stretch to decrease pinching feeling at ant hip, good results with double knees side to side. Pt reports decreased low back pain from 4-5/10 at start of session to 0/10 at end of session and reports feeling improved pain in B neck with rotation. Physical Therapy Plan Frequency and Duration Frequency of 2x/Week Treatment Duration of 12 treatment (weeks) Plan of Care Start 03/29/25 Date Plan of Care End 06/21/25 Date Next Visit Focus/Plan Next Note Type Treatment Note Next Visit Plan gentle STM and stretching to R rhomboid and lat, thoracic and lumbar extensor muscle strengthening
--- NOTE | 2025-04-24 11:32 | PT.OTN ---
Current Diagnoses Other chronic pain (04/24/25) Pain in right hip (04/24/25) Pleurodynia (04/24/25) Physical Therapy Treatment Note PT OP: Full Body Start: 04/05/25 10:44 Freq: Status: Active Protocol: Document 04/24/25 10:47 SP (Rec: 04/24/25 11:37 SP [id number]) Out-Patient Physical Therapy Visit Information Visit Information Visit Type Treatment Note Visit Start Time 10:47 Visit Stop Time 11:32 Visit Number 8 Number of CURRICULUM COORDINATOR Visits 1 Progress Note Due 04/28/25 OP-PT Subjective Patient Comments Patient Comments Pt reports not a great day, woke up last night with pain in R buttocks, got up and moved around and lessed the pain. Cardio Equipment Recumbent Elliptical (NuStep) Duration (Minutes) 4 Resistance L4 Seat Position 7 Other BLEs only with cueing for full ROM strides & TA Therapeutic Exercises Supine Exercises Stretching Supine Exercise Name 1. Hip flex stretch off edge of table 2. FIg 4 3. Piriformis hip IR Side right Equipment Used 1. thigh on table Reps/Minutes 1 min each Comments with gentle manual MFR proximal to distal direction, exhale into relax Sitting Exercises Hip abduction Sitting Exercise clamshell with TB added to HEP with HO Name Resistance TB #3 Reps/Minutes 60 sec then 15 reps Standing Exercises Step up/back down Standing Exercise added to HEP with HO Name Side bilateral Resistance 4>2: text book home Equipment Used ail support Reps/Minutes 10 reps x2 sets Comments cued glut drive HIp Abduction Standing Exercise added to HEP with HO Name Equipment Used rail support Reps/Minutes 10 reps Comments cued posture with TA Hip Extension Standing Exercise DC- R hip pain 04/24/25 Name Manual Therapy Treatment Consent Patient gave verbal Yes consent for manual treatment Soft Tissue Mobilization back Body Location R lumbar paraspinals Mobilization Type Rolling Intensity/Depth Superficial Body Position Sidelying Comments gentle, very sensitive to pressure R hip Body Location R PF, glut med, TFL Comments gentle, very sensitive to pressure better broad STM and MFR Joint Mobilizations Hip Joint anteromedial with strap Comments MWM hip ER AROM- no pain Physical Therapy Assessment Goals 3 Impairment Balance Tile Professional Goal (LTG) Pt will perform R and L SLS at 10s each leg on even floor in order to improve balance, safety, and functional mobility. LTG Duration 06/21/25 2 Impairment Lack of HEP Short Term Goal (STG Pt will be ind with progressive HEP at least 5x/wk for ) 3 wks in order to progress towards LTGs. STG Duration 05/10/25 1 Impairment Activity tolerance Impairment Only able to stand to perform housework for 10-15 mins at a time before needing to sit Tile Professional Goal (LTG) Pt will tolerate static and dynamic standing/reaching/ bending activities to simulate housework for 30 mins without seated rest break needed to improve function. LTG Duration 06/21/25 Assessment Summary Assessment Pt improved decreased hip discomfort post manual and instruction review stretching, resisted and body weight ther ex for progress glut muscle activiation for allowance comfort walking, sleep positioning comfort. Physical Therapy Plan Frequency and Duration Frequency of 2x/Week Treatment Duration of 12 treatment (weeks) Plan of Care Start 03/29/25 Date Plan of Care End 06/21/25 Date Therapeutic Interventions Therapeutic Balance Training,Gait Training,Home Exercise Program, Interventions Joint Mobilizations,Manual Therapy,Neuromuscular Re- education,Patient/Caregiver Education,Soft Tissue Mobilization,Taping,Therapeutic Activities,Therapeutic Exercises Modalities Cold Pack/Ice Massage,Hot Packs,Iontophoresis Next Visit Focus/Plan Next Note Type Treatment Note Next Visit Plan RFecheck glut HEP. POC: gentle STM and stretching to R rhomboid and lat, thoracic and lumbar extensor muscle strengthening
--- NOTE | 2025-04-26 20:18 | PT.OPPN ---
Current Diagnoses Other chronic pain (04/26/25) Pain in right hip (04/26/25) Pleurodynia (04/26/25) Physical Therapy Progress Note PT OP: Full Body Start: 04/05/25 10:44 Freq: Status: Active Protocol: Document 04/26/25 11:41 SENIOR SYSTEMS ARCHITECT (Rec: 04/26/25 12:23 SENIOR SYSTEMS ARCHITECT Laptop) Out-Patient Physical Therapy Visit Information Visit Information Visit Type Progress Note Visit Start Time 11:37 Visit Stop Time 11:22 Visit Number 9 Number of FINANCIAL SERVICES INTERNSHIP Visits 0 Progress Note Due 05/26/25 OP-PT Subjective Patient Comments Patient Comments Pt reports increased pain to R buttock down to mid post thigh today. Unable to give current pain number d/t pain coming and going, no upper back pain today but was increased yesterday. Therapeutic Exercises Supine Exercises sciatic nerve glides Supine Exercise Name 1. wedge DF knee flexed and ext 2. exercise ball DF knee flexed and ext Side right Reps/Minutes x10 each position Comments slight tension in DF knee ext on exercise ball Bridges Supine Exercise Name after HF stretch Reps/Minutes x10 Comments with TA activation and VC for breathing Stretching Supine Exercise Name 1. Hip flex stretch off edge of table 2. Fig 4 Side right Equipment Used 1. thigh on table Reps/Minutes 1 min x2 Comments piri stretch inhibited by pinching at ant hip, improved with HF stretch Sitting Exercises Hip abduction Sitting Exercise sustained hold prior to balance training Name Resistance TB #4 Reps/Minutes 60 sec Manual Therapy Treatment Consent Patient gave verbal Yes consent for manual treatment Soft Tissue Mobilization R hip Body Location R piriformis Mobilization Type Strain/Counterstrain Body Position Prone Comments x1 90s session with reduction to piriformis pain Neuro Re-Education Treatment Balance Activities SLS Comments after B glute med activation R even floor: 7s L even floor: 2s, 2s, 2s, Physical Therapy Assessment Goals 3 Impairment Balance Extender Goal (LTG) Pt will perform R and L SLS at 10s each leg on even floor in order to improve balance, safety, and functional mobility. 04/26: Progressing, R: 7s, L: 2s, 2s, 2s LTG Duration 06/21/25 2 Impairment Lack of HEP Short Term Goal (STG Pt will be ind with progressive HEP at least 5x/wk for ) 3 wks in order to progress towards LTGs. 04/26: Progressing, reports 4x/wk for past 3 weeks STG Duration 05/10/25 1 Impairment Activity tolerance Impairment Only able to stand to perform housework for 10-15 mins at a time before needing to sit Halfway Goal (LTG) Pt will tolerate static and dynamic standing/reaching/ bending activities to simulate housework for 30 mins without seated rest break needed to improve function. 04/26: Pt reports intermittent progress depending on the day but overall slight improvement. LTG Duration 06/21/25 Assessment Summary Assessment Pt demonstrates slow progress towards goals but still limited by intermittent increased pain to R glute, still limited in BLE balance via SLS. Physical Therapy Plan Frequency and Duration Frequency of 2x/Week Treatment Duration of 12 treatment (weeks) Plan of Care Start 03/29/25 Date Plan of Care End 06/21/25 Date Therapeutic Interventions Therapeutic Balance Training,Gait Training,Home Exercise Program, Interventions Joint Mobilizations,Manual Therapy,Neuromuscular Re- education,Patient/Caregiver Education,Soft Tissue Mobilization,Taping,Therapeutic Activities,Therapeutic Exercises Modalities Cold Pack/Ice Massage,Hot Packs,Iontophoresis Next Visit Focus/Plan Next Note Type Treatment Note Next Visit Plan RFecheck glut HEP. POC: gentle STM and stretching to R rhomboid and lat, thoracic and lumbar extensor muscle strengthening, R piriformis SCS
--- NOTE | 2025-05-01 11:34 | PT.OTN ---
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 Wants to get better to be able to vacuum, hurts her back. Cardio Equipment Recumbent Elliptical (NuStep) Duration (Minutes) 4 Resistance L2 Seat Position 7- low level resistance for strength and ROM Other BLEs only with cueing for full ROM strides & TA, stopped at 4 adductor irri Therapeutic Exercises Supine Exercises Stretching Supine Exercise Name 1. Hip flex stretch off edge of table 2. Fig 4 Side bilateral Resistance R>L Equipment Used 1. prox thigh on table Reps/Minutes 1 min x2 Comments good feedback response, improved mobility Sitting Exercises Hip abduction Sitting Exercise sustained hold prior to balance training Name Resistance TB #4 around thighs Reps/Minutes 60 sec then 15 reps Comments reviewed Standing Exercises Calf Raises Standing Exercise added to HEP declined HO Name Side bilateral Resistance AROM Equipment Used rail support Reps/Minutes 15 reps Comments good form, no pain HS curls Standing Exercise added to HEP declined HO Name Side bilateral Resistance AROM Equipment Used rail contact Reps/Minutes 20 reps alternating BLEs Comments good feedback response, no pain Step up/back down Standing Exercise reveiwed Name Side bilateral Resistance 2 text book home Equipment Used rail support Reps/Minutes 10 reps each LE Comments cued glut drive, knee align with mid foot HIp Abduction Standing Exercise Reviewed Name Side bilateral Resistance Tb #1 (added 05/01/25) Equipment Used rail support Reps/Minutes 10 reps Comments cued posture with TA Manual Therapy Treatment Consent Patient gave verbal Yes consent for manual treatment Soft Tissue Mobilization Legs Body Location L>R today: GLut, HS, calf Body Position Prone over pillows Comments STMs back Body Location R lumbar paraspinals Mobilization Type Rolling Intensity/Depth Superficial Body Position Prone over pillows Comments gentle Physical Therapy Assessment Goals 3 Impairment Balance Halfway Goal (LTG) Pt will perform R and L SLS at 10s each leg on even floor in order to improve balance, safety, and functional mobility. 04/26: Progressing, R: 7s, L: 2s, 2s, 2s LTG Duration 06/21/25 2 Impairment Lack of HEP Short Term Goal (STG Pt will be ind with progressive HEP at least 5x/wk for ) 3 wks in order to progress towards LTGs. 04/26: Progressing, reports 4x/wk for past 3 weeks STG Duration 05/10/25 1 Impairment Activity tolerance Impairment Only able to stand to perform housework for 10-15 mins at a time before needing to sit Halfway Goal (LTG) Pt will tolerate static and dynamic standing/reaching/ bending activities to simulate housework for 30 mins without seated rest break needed to improve function. 04/26: Pt reports intermittent progress depending on the day but overall slight improvement. LTG Duration 06/21/25 Assessment Summary Assessment Pt tolerated increased resistance today for hip abductor strengthening in standing and AROM calf raises and HS curls to support knee stability posteriorly and cues for knee alignment step/back downs with cuing for TA and neutral pelvis support for ease of home ADLs. Next tx pt would benefit from body mechanics TA use vacuuming ther act. Physical Therapy Plan Frequency and Duration Frequency of 2x/Week Treatment Duration of 12 treatment (weeks) Plan of Care Start 03/29/25 Date Plan of Care End 06/21/25 Date Therapeutic Interventions Therapeutic Balance Training,Gait Training,Home Exercise Program, Interventions Joint Mobilizations,Manual Therapy,Neuromuscular Re- education,Patient/Caregiver Education,Soft Tissue Mobilization,Taping,Therapeutic Activities,Therapeutic Exercises Modalities Cold Pack/Ice Massage,Hot Packs,Iontophoresis Next Visit Focus/Plan Next Note Type Treatment Note Next Visit Plan RFecheck glut HEP. Next TA and hip strengthening body bumper for decreased pain vacuuming (her goal). POC: gentle STM and stretching to R rhomboid and lat, thoracic and lumbar extensor muscle strengthening, R piriformis SCS
--- NOTE | 2025-05-03 11:29 | PT.OTN ---
Current Diagnoses Other chronic pain (05/03/25) Pain in right hip (05/03/25) Pleurodynia (05/03/25) Physical Therapy Treatment Note PT OP: Full Body Start: 04/05/25 10:44 Freq: Status: Active Protocol: Document 05/03/25 10:49 SP (Rec: 05/03/25 11:35 SP [id number]) Out-Patient Physical Therapy Visit Information Visit Information Visit Type Treatment Note Visit Start Time 10:49 Visit Stop Time 11:29 Visit Number 11 Number of MALT ROASTER Visits 2 Progress Note Due 05/26/25 OP-PT Subjective Patient Comments Patient Comments Pt reports no changes since last tx. R hip little sore. Cardio Equipment Recumbent Stepper (Sci-Fit) Duration (Minutes) 6 Resistance 2.5 Seat Position 9 Other LEs only, 52 RPMs. 0.73 miles Therapeutic Exercises Supine Exercises Bridge Supine Exercise Name Trialed in PT, not added to HEP Resistance TB #1 around thighs Reps/Minutes 10 reps Comments instructed for glut and core after manual & stretching 05/03/25 Stretching Supine Exercise Name 1. Hip flex stretch off edge of table 2. Fig 4 Side right Equipment Used 1. prox thigh on table Reps/Minutes 1 min x2 Comments good feedback response, improved mobility Standing Exercises Calf Raises Standing Exercise reviewed- did at home yesterday Name Side bilateral Resistance AROM Equipment Used rail support Reps/Minutes 15 reps Comments good form, no pain HS curls Standing Exercise reviewed Name Side bilateral Resistance AROM Equipment Used rail contact Reps/Minutes 20 reps alternating BLEs Comments good feedback response, no pain Step up/back down Standing Exercise verbal review doing fine Name Side bilateral Resistance 2 text book home Equipment Used rail support Reps/Minutes 10 reps each LE Comments cued glut drive, knee align with mid foot HIp Abduction Standing Exercise 1. stationary 2. traveling side, fwd, bwd stepping Name Side bilateral Resistance Tb #1 tied around shins 2. at thighs better no knee irritation 05/03/25 Equipment Used rail support stationary 2. near rail as needed (not needed 05/03/25) Reps/Minutes 1. 10 reps 2. 10 reps x2 laps each Comments cued posture with TA and rhomboid engagment midline stab Therapeutic Activity Therapeutic Activity body mechanics Name for vacuuming Reps/Minutes 8 min Comments Education wt shift split stance fwd/bwd/lateral (use trek poles in PT with no and 2# arm wts for wt of vacuum home. Manual Therapy Treatment Consent Patient gave verbal Yes consent for manual treatment Soft Tissue Mobilization Legs Body Location R: GLut, HS, calf Body Position Sidelying Comments STMs gentle back Body Location R lumbar paraspinals & ES & QL Mobilization Type Rolling Intensity/Depth Superficial Body Position Sidelying Comments gentle STMs Manual Techniques hip Type R hip Comments manual PNF both direction post manual Physical Therapy Assessment Goals 3 Impairment Balance Process Developer Goal (LTG) Pt will perform R and L SLS at 10s each leg on even floor in order to improve balance, safety, and functional mobility. 04/26: Progressing, R: 7s, L: 2s, 2s, 2s LTG Duration 06/21/25 2 Impairment Lack of HEP Short Term Goal (STG Pt will be ind with progressive HEP at least 5x/wk for ) 3 wks in order to progress towards LTGs. 04/26: Progressing, reports 4x/wk for past 3 weeks STG Duration 05/10/25 1 Impairment Activity tolerance Impairment Only able to stand to perform housework for 10-15 mins at a time before needing to sit Alf Goal (LTG) Pt will tolerate static and dynamic standing/reaching/ bending activities to simulate housework for 30 mins without seated rest break needed to improve function. 04/26: Pt reports intermittent progress depending on the day but overall slight improvement. LTG Duration 06/21/25 Assessment Summary Assessment Pt good feedback no pain response to resisted hip abd so added traveling lateral, forward and backward, cued for rhomboid and core fac for midline, had 1 slight over wt shift. Improved vacuuming assimulation with and without weight cues ed for wt shift between BLEs and TA engagement needed for decrease to no LBP, good feedback response during tx today. Ther ex focused on glut and core for functional strengthening. PT report no R hip pain post manual and stretching end tx. Physical Therapy Plan Frequency and Duration Frequency of 2x/Week Treatment Duration of 12 treatment (weeks) Plan of Care Start 03/29/25 Date Plan of Care End 06/21/25 Date Therapeutic Interventions Therapeutic Balance Training,Gait Training,Home Exercise Program, Interventions Joint Mobilizations,Manual Therapy,Neuromuscular Re- education,Patient/Caregiver Education,Soft Tissue Mobilization,Taping,Therapeutic Activities,Therapeutic Exercises Modalities Cold Pack/Ice Massage,Hot Packs,Iontophoresis Next Visit Focus/Plan Next Note Type Treatment Note Next Visit Plan RFecheck glut HEP. Next TA and hip strengthening body painter for decreased pain vacuuming (her goal). POC: gentle STM and stretching to R rhomboid and lat, thoracic and lumbar extensor muscle strengthening, R piriformis SCS *Jun 04 visit with MONTSERRAT Hay
--- NOTE | 2025-05-07 13:42 | PT.OTN ---
Current Diagnoses Other chronic pain (05/07/25) Pain in right hip (05/07/25) Pleurodynia (05/07/25) Physical Therapy Treatment Note PT OP: Full Body Start: 04/05/25 10:44 Freq: Status: Active Protocol: Document 05/07/25 13:02 SP (Rec: 05/07/25 13:49 SP [id number]) Out-Patient Physical Therapy Visit Information Visit Information Visit Type Treatment Note Visit Note SHUN Richards assisted with manual and automobile body repair supervisor instruction during weighted vacuum assimulation with pt while under direct supervistion of OIL SPOT WASHER Muriel. Visit Start Time 13:02 Visit Stop Time 13:42 Visit Number 12 Number of OIL SPOT WASHER Visits 3 Progress Note Due 05/26/25 OP-PT Subjective Patient Comments Patient Comments Pt reports stiffness and achiness in lower to mid thoracic at arrival. Hip feels better. Compliant with HEP, skipped yesterday. Therapeutic Exercises Supine Exercises core series Supine Exercise Name LTR, DKTC, bridge LEs over tball, Reps/Minutes 10 reps alternating Comments cued low back toward table, oblique engagment Sidelying Exercises open book Sidelying Exercise Add to HEP w/ HO Name Side bilateral Resistance AROM Reps/Minutes 5 reps Comments cues for scapular and thoracic mobility, slow pn free movement Standing Exercises Cat/Cow Standing Exercise Modified in standing with forearms on wedge on tall Name high/low table Reps/Minutes x10 Comments good result, minimal cueing, no pain Therapeutic Activity Therapeutic Activity body mechanics Name for vacuuming Reps/Minutes 8 min Comments Education wt shift split stance fwd/bwd/lateral (use trek poles in PT with no and 2# arm wts for wt of vacuum home. *Dowel on back for spinal alignment Manual Therapy Treatment Consent Patient gave verbal Yes consent for manual treatment Soft Tissue Mobilization Legs Body Location Bi: GLut, piriformis Mobilization Type Rolling,Sustained Pressure,Other Body Position Prone Comments gentle broad STMs rolling and PROM hip IR/ER back Body Location B upper lumbar and thoracic paraspinals & ES Mobilization Type Rolling Intensity/Depth Moderate Body Position Prone Comments gentle broad STMs Physical Therapy Assessment Goals 3 Impairment Balance Publication Specialist Goal (LTG) Pt will perform R and L SLS at 10s each leg on even floor in order to improve balance, safety, and functional mobility. 04/26: Progressing, R: 7s, L: 2s, 2s, 2s LTG Duration 06/21/25 2 Impairment Lack of HEP Impairment . Short Term Goal (STG Pt will be ind with progressive HEP at least 5x/wk for ) 3 wks in order to progress towards LTGs. 04/26: Progressing, reports 4x/wk for past 3 weeks STG Duration 05/10/25 1 Impairment Activity tolerance Impairment Only able to stand to perform housework for 10-15 mins at a time before needing to sit Publication Specialist Goal (LTG) Pt will tolerate static and dynamic standing/reaching/ bending activities to simulate housework for 30 mins without seated rest break needed to improve function. 04/26: Pt reports intermittent progress depending on the day but overall slight improvement. LTG Duration 06/21/25 Assessment Summary Assessment Pt responded well to manual, verbal discussion on use ball on wall but forgot to show/have pt perfrom for carryover home. She required tactile and VCs during cat /cow and improved carryover corrections with use of dowel for reinforecement spinal lenghening during vacuuming assimulation with better understanding with body mechanics. Physical Therapy Plan Frequency and Duration Frequency of 2x/Week Treatment Duration of 12 treatment (weeks) Plan of Care Start 03/29/25 Date Plan of Care End 06/21/25 Date Therapeutic Interventions Therapeutic Balance Training,Gait Training,Home Exercise Program, Interventions Joint Mobilizations,Manual Therapy,Neuromuscular Re- education,Patient/Caregiver Education,Soft Tissue Mobilization,Taping,Therapeutic Activities,Therapeutic Exercises Modalities Cold Pack/Ice Massage,Hot Packs,Iontophoresis Next Visit Focus/Plan Next Note Type Treatment Note Next Visit Plan RFecheck glut HEP. Continue TA and hip strengthening, and automobile body repair supervisor for decreased pain vacuuming as needed (her goal). POC: gentle STM and stretching to R rhomboid and lat, thoracic and lumbar extensor muscle strengthening, R piriformis SCS *Jun 04 visit with PT
--- NOTE | 2025-05-10 17:01 | PT.OTN ---
Current Diagnoses Other chronic pain (05/10/25) Pain in right hip (05/10/25) Pleurodynia (05/10/25) Physical Therapy Treatment Note PT OP: Full Body Start: 04/05/25 10:44 Freq: Status: Active Protocol: Document 05/10/25 10:46 MILITARY ADMINISTRATIVE TECHNICIAN (Rec: 05/10/25 11:36 MILITARY ADMINISTRATIVE TECHNICIAN Laptop) Out-Patient Physical Therapy Visit Information Visit Information Visit Type Treatment Note Visit Start Time 10:46 Visit Stop Time 11:35 Visit Number 13 Number of VAMP SEAMER Visits 0 Progress Note Due 05/26/25 OP-PT Subjective Patient Comments Patient Comments Pt reports increased pain to low back, R hip, and all the way down R leg with cramping. She cannot think of any event to cause this. Improved a little bit with heated seats in car on drive over, this morning was a . Therapeutic Exercises Supine Exercises DK side to side Supine Exercise Name lumbar rotation Side bilateral Reps/Minutes x5 each side Stretching Supine Exercise Name 1. butterfly 2. figure 4 3. modified maite stretch Side bilateral Reps/Minutes 30s x2, maite stretch 1 min Comments TFM to HF tendons during maite stretch Sidelying Exercises Reverse clamshell Side right Reps/Minutes 10x2 open book Side bilateral Resistance AROM Reps/Minutes x10 each sides Manual Therapy Treatment Consent Patient gave verbal Yes consent for manual treatment Soft Tissue Mobilization Legs Body Location R glute med, max, piriformis, ITB, HS Mobilization Type Myofascial Release,Rolling Intensity/Depth Superficial Body Position Sidelying Comments increased pain, very sensitive but tolerates MFR well back Body Location R upper lumbar paraspinals Mobilization Type Cross-Friction,Rolling Intensity/Depth Superficial Body Position Sidelying Comments gentle broad STMs Physical Therapy Assessment Goals 3 Impairment Balance Skilled Nursing Goal (LTG) Pt will perform R and L SLS at 10s each leg on even floor in order to improve balance, safety, and functional mobility. 04/26: Progressing, R: 7s, L: 2s, 2s, 2s LTG Duration 06/21/25 2 Impairment Lack of HEP Impairment . Short Term Goal (STG Pt will be ind with progressive HEP at least 5x/wk for ) 3 wks in order to progress towards LTGs. 04/26: Progressing, reports 4x/wk for past 3 weeks STG Duration 05/10/25 1 Impairment Activity tolerance Impairment Only able to stand to perform housework for 10-15 mins at a time before needing to sit Skilled Nursing Goal (LTG) Pt will tolerate static and dynamic standing/reaching/ bending activities to simulate housework for 30 mins without seated rest break needed to improve function. 04/26: Pt reports intermittent progress depending on the day but overall slight improvement. LTG Duration 06/21/25 Assessment Summary Assessment Focus of session on reducing lumbar and hip pain this session, tolerated light STM to R piriformis and glute med and ITB, noted lateral placement of R femoral head pressing outward against muscles and tolerated reverse clamshell for more medial placement of femur/ strengthening of hip IRs. Physical Therapy Plan Frequency and Duration Frequency of 2x/Week Treatment Duration of 12 treatment (weeks) Plan of Care Start 03/29/25 Date Plan of Care End 06/21/25 Date Next Visit Focus/Plan Next Note Type Treatment Note Next Visit Plan RFecheck glut HEP. Continue TA and hip strengthening, and automobile body repairer for decreased pain vacuuming as needed (her goal). POC: gentle STM and stretching to R rhomboid and lat, thoracic and lumbar extensor muscle strengthening, R piriformis SCS *Jun 04 visit with PT
--- NOTE | 2025-05-17 12:31 | PT.OPPN ---
Current Diagnoses Other chronic pain (05/17/25) Pain in right hip (05/17/25) Pleurodynia (05/17/25) Physical Therapy Progress Note PT OP: Full Body Start: 04/05/25 10:44 Freq: Status: Active Protocol: Document 05/17/25 10:37 [facility] (Rec: 05/17/25 12:31 [facility] [id number]) Out-Patient Physical Therapy Visit Information Visit Information Visit Type Progress Note Visit Start Time 11:35 Visit Stop Time 12:15 Visit Number 14 Number of SUPERINTENDENT TESTS Visits 0 Progress Note Due 06/16/25 OP-PT Subjective Patient Comments Patient Comments pt reports today is an ok day. Pain comes and goes. sometimes pain is worse when she wakes. Has realized she is out of shape w/PT. does feel better w/doing her stretches. Doing them most days Therapeutic Exercises Standing Exercises HIp Abduction Standing Exercise sidesteps Name Side bilateral Equipment Used L1 1 rep Reps/Minutes 8ftx3 Comments cues neutral posture Therapeutic Activity Therapeutic Activity posture Reps/Minutes 8 min Comments set up posture w/deep breath in and breath out to set ribcage over pelvis-edu on how w/osteoporosis she cannot get fully neutral in tspine likely anymore so not to push it as it inc pressure in LB; taught to scap set w/shrug up gentle retract and settle down lightly Manual Therapy Treatment Consent Patient gave verbal Yes consent for manual treatment Soft Tissue Mobilization back Body Location B thoracic paraspinals, R lumbar paraspinals Mobilization Type Rolling Intensity/Depth Superficial Body Position Sidelying R hip Body Location R glute Mobilization Type Rolling Body Position Sidelying Joint Mobilizations innominate Comments R flex c/r Hip Comments R inf glide c/r Physical Therapy Assessment Goals 3 Impairment Balance Burial Vault Setter Goal (LTG) Pt will perform R and L SLS at 10s each leg on even floor in order to improve balance, safety, and functional mobility. 04/26: Progressing, R: 7s, L: 2s, 2s, 2s 05/17-9 sec R, 4 sec L LTG Duration 06/21/25 2 Impairment Lack of HEP Impairment . Short Term Goal (STG Pt will be ind with progressive HEP at least 5x/wk for ) 3 wks in order to progress towards LTGs. 04/26: Progressing, reports 4x/wk for past 3 weeks STG Duration achieved 05/17 1 Impairment Activity tolerance Impairment Only able to stand to perform housework for 10-15 mins at a time before needing to sit Burial Vault Setter Goal (LTG) Pt will tolerate static and dynamic standing/reaching/ bending activities to simulate housework for 30 mins without seated rest break needed to improve function. 04/26: Pt reports intermittent progress depending on the day but overall slight improvement. 05/17-can make bed and put sheets on then has to sit down. Can only do 1 task at a time- mostly in LB and thoracic LTG Duration 06/21/25 Assessment Summary Assessment Pt did well with session and demonstrated understanding on postural position. She would benefit from cont PT to work on pain management, balance and strength although is improving with these with ongoing therapy. Physical Therapy Plan Frequency and Duration Frequency of 2x/Week Treatment Duration of 12 treatment (weeks) Plan of Care Start 03/29/25 Date Plan of Care End 06/21/25 Date Therapeutic Interventions Therapeutic Balance Training,Gait Training,Home Exercise Program, Interventions Joint Mobilizations,Manual Therapy,Neuromuscular Re- education,Patient/Caregiver Education,Soft Tissue Mobilization,Taping,Therapeutic Activities,Therapeutic Exercises Modalities Cold Pack/Ice Massage,Hot Packs,Iontophoresis Next Visit Focus/Plan Next Note Type Treatment Note Next Visit Plan review and advance standing strengthening, cont to work on not extending lumbar spine to compensate for tspine position, gentle tspine ROM, manual to dec pain
--- NOTE | 2025-05-22 16:05 | PT.OTN ---
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 Visit Start Time 13:05 Visit Stop Time 13:45 Visit Number 15 Number of DIRECTOR STARS Visits 1 Progress Note Due 06/16/25 OP-PT Subjective Patient Comments Patient Comments Pt reports feeling okay today, normal R knee issue but back is feeling good. Doing HEP most days, supine ex and standing paloff press. Able to tolerate ADLs including laundry and dishes for about 30 minutes before resting. Pt reports some tightness around the R SI jt. Cardio Equipment Recumbent Elliptical (NuStep) Duration (Minutes) 5 Resistance 3 Seat Position 7 Other 383 steps, vc for knee alignment. Therapeutic Exercises Supine Exercises Knee fall out Supine Exercise Name Alternating knee fall out Side bilateral Resistance L1 band Reps/Minutes 2 x 10 Comments Cue slow out and back, pn free range Bridge Supine Exercise Name Bridge Side bilateral Resistance Trialed L1 band Reps/Minutes 2 x 5 Comments L1 band too difficult, triggered HS cramp. Completed with no resistance. sciatic nerve glides Supine Exercise Name 1. wedge DF knee flexed and ext 2. exercise ball DF knee flexed and ext Side right Resistance Wedge, 55 cm ex ball Reps/Minutes x10 each position Comments Pt able to extend knee in each position for further glide. VC and TC. DK side to side Supine Exercise Name lumbar rotation Side bilateral Equipment Used 55 cm ex ball Reps/Minutes x 5 each side, alternating Comments VC and TC for slow side to side, pn free motion. Good TA activation. Sitting Exercises Hip abduction Sitting Exercise sustained hold prior to balance training Name Side bilateral Resistance TB #4 around thighs Reps/Minutes 60 sec then 10 reps Comments Added to HEP with L4 dark blue band, progressing from L3 at home. Manual Therapy Treatment Consent Patient gave verbal Yes consent for manual treatment Soft Tissue Mobilization R hip Body Location R glut, proximal SI jt Mobilization Type Rolling,Sustained Pressure Body Position Sidelying Comments Pt has TRP at prox R SI jt. SPTA and DIRECTOR STARS checked pelvic alignment in supine after bridge. Pelvis appeared aligned. Neuro Re-Education Treatment Balance Activities SLS Details Tandem and then SLS in corner Surface carpet Equipment Corner, chair in front Reps/Duration x 1 each side tandem w/ 30 hold, x 3 each side SLS Comments after B glute med activation L even floor: 3, 4, 4s R even floor: 5s, 9s, 15s Physical Therapy Assessment Goals 3 Impairment Balance Long-Term Goal (LTG) Pt will perform R and L SLS at 10s each leg on even floor in order to improve balance, safety, and functional mobility. 04/26: Progressing, R: 7s, L: 2s, 2s, 2s 05/17-9 sec R, 4 sec L 05/22: 15 sec R, 4 sec L LTG Duration 06/21/25 2 Impairment Lack of HEP Impairment . Short Term Goal (STG Pt will be ind with progressive HEP at least 5x/wk for ) 3 wks in order to progress towards LTGs. 04/26: Progressing, reports 4x/wk for past 3 weeks STG Duration achieved 05/17 1 Impairment Activity tolerance Impairment Only able to stand to perform housework for 10-15 mins at a time before needing to sit 05/22/25: Pt reports able to perform standing, moving around ADLs for 30'. Machine Dyer Goal (LTG) Pt will tolerate static and dynamic standing/reaching/ bending activities to simulate housework for 30 mins without seated rest break needed to improve function. 04/26: Pt reports intermittent progress depending on the day but overall slight improvement. 05/17-can make bed and put sheets on then has to sit down. Can only do 1 task at a time- mostly in LB and thoracic. 05/22/25: Pt able to do 30 minutes of standing and moving ADLs at home including dishwashing, laundry without increase in back discomfort. LTG Duration 06/21/25 Assessment Summary Assessment Pt appreciated starting with NuStep prior to other tx activities as it decreased tension in her knees. Trialed bridging with L1 band but too much, went back to bridge with no resistance. Added L1 band for knee fall outs with no increase in hip/back pn. Pt able to complete side to side lumbar rotation with LE on 55 cm ex ball. Pt demonstrates good posture during all ther ex, with TA activation in supine activities. Tandem and SLS trialed B in corner with chair. Tandem able to hold 30 B, SLS multiple trials on R 3-4, L 5-15. Pt improving SLS on L. Pt progressing on tolerance for ADLs in standing without rests, reports 30' of activities. Physical Therapy Plan Frequency and Duration Frequency of 2x/Week Treatment Duration of 12 treatment (weeks) Plan of Care Start 03/29/25 Date Plan of Care End 06/21/25 Date Next Visit Focus/Plan Next Note Type Treatment Note Next Visit Plan Assess addition of L4 band for seated hip abd in HEP, overall tolerance for ADLs using dynamic standing, bending, reaching, TRP at R proximal SI jt. Continue to work on SLS balance for glut strength and ADL stability.
--- NOTE | 2025-05-24 16:00 | PT.OTN ---
Current Diagnoses Other chronic pain (05/24/25) Pain in right hip (05/24/25) Pleurodynia (05/24/25) Physical Therapy Treatment Note PT OP: Full Body Start: 04/05/25 10:44 Freq: Status: Active Protocol: Document 05/24/25 13:47 PD (Rec: 05/24/25 15:14 PD [id number]) Out-Patient Physical Therapy Visit Information Visit Information Visit Type Treatment Note Visit Note SHUN Richards led tx session with direct supervision by PINKY Llamas and patient permission. Visit Start Time 13:47 Visit Stop Time 14:33 Visit Number 16 Number of NUTRITIONAL SERVICES HOST Visits 2 Progress Note Due 06/16/25 OP-PT Subjective Patient Comments Patient Comments Pt feeling good today, doing HEP with Colin stretch, KFOs, HS stretches, seated hip abduction with band, back stepping off stable surface, side stepping. Pt reports no pain on arrival today, might feel some pain during HEP but it doesn't last after she is done. Cardio Equipment Recumbent Elliptical (NuStep) Duration (Minutes) 5 Resistance 3 Seat Position 7 Other 383 steps, vc for R knee alignment. Therapeutic Exercises Supine Exercises Bridge Supine Exercise Name Bridge Side bilateral Reps/Minutes 5 with 10 hold each Comments Pt HS can cramp with this in HEP, trialed with > flexion, R knee ROM limits sciatic nerve glides Supine Exercise Name Legs over 55 cm exercise ball, R knee extended while foot DF Side right Resistance 55 cm ex ball Reps/Minutes x 3 with 5 hold Comments TC and VC to extended knee and DF foot. Pt reports feels stretch. DK side to side Supine Exercise Name lumbar rotation Side bilateral Equipment Used 55 cm ex ball Reps/Minutes x 5 each side, alternating Comments TC for slow side to side, pt reports no back or LE pain with rotation. Sitting Exercises Hip abduction Sitting Exercise sustained hold prior to balance training Name Side bilateral Resistance TB #4 around thighs Reps/Minutes 60 sec hold then 15 reps Comments Pt able to tolerate L4 band and progressed to 15 reps. Standing Exercises Lateral step downs Side bilateral Equipment Used 4 step, bar as needed for UE support Reps/Minutes 1 x 10 each side Comments Trialed to progress glut strength and SLS balance. Toe taps Standing Exercise Toe taps to 4 step and back while in SLS with UE using Name bar as needed Side bilateral Equipment Used at bar Reps/Minutes 2 x 10 each side Comments Cues to just tap toe on step and back on grnd, try not to wt tapping foot. Therapeutic Activity Therapeutic Activity body mechanics Name Simulated lifting and moving full laundry basket Reps/Minutes 5 minutes Comments Assessed pt's ability to complete most challenging ADLs with no increase in pain and good body mechanics. With guidance from pt, set up crate with 6# of weight to simulate basket full of dry laundry. Pt moved crate from counter to floor and picked up crate from floor and walked 15' to sit in chair and placed crate on floor. Pt used good body mechanics, kept crate close to body, experienced no LOB, reported no increase in pain with activity. Pt reports she is able to complete all ADLs that she needs to complete without increase in pain or LOB. Neuro Re-Education Treatment Balance Activities Foam Stance Details WBOS, NBOS, Tandem Surface 2 foam Equipment At bar Reps/Duration 1 x each position Comments Pt able to maintain each position for 30 with no LOB or need for UE support on bar. Pt able to side to side rock with WBOS and NBOS. SLS Details Tandem and then SLS in corner Surface carpet Equipment Corner, chair in front Reps/Duration x 1 each side tandem w/ 30 hold, x 3 each side SLS Comments after B glut med activation L even floor: 3, 4, 3s R even floor: 5s, 7s, 6s Physical Therapy Assessment Goals 3 Impairment Balance Senior Oracle Database Developer Goal (LTG) Pt will perform R and L SLS at 10s each leg on even floor in order to improve balance, safety, and functional mobility. 04/26: Progressing, R: 7s, L: 2s, 2s, 2s 05/17-9 sec R, 4 sec L 05/22: 15 sec R, 4 sec L 05/24: 5, 7, 6 R; 3, 4, 3 L LTG Duration 06/21/25 2 Impairment Lack of HEP Impairment . Short Term Goal (STG Pt will be ind with progressive HEP at least 5x/wk for ) 3 wks in order to progress towards LTGs. 04/26: Progressing, reports 4x/wk for past 3 weeks STG Duration achieved 05/17 1 Impairment Activity tolerance Impairment Only able to stand to perform housework for 10-15 mins at a time before needing to sit 05/22/25: Pt reports able to perform standing, moving around ADLs for 30'. Fdc Goal (LTG) Pt will tolerate static and dynamic standing/reaching/ bending activities to simulate housework for 30 mins without seated rest break needed to improve function. 04/26: Pt reports intermittent progress depending on the day but overall slight improvement. 05/17-can make bed and put sheets on then has to sit down. Can only do 1 task at a time- mostly in LB and thoracic. 05/22/25: Pt able to do 30 minutes of standing and moving ADLs at home including dishwashing, laundry without increase in back discomfort. 05/24/25: Pt able to simulate lifting, carrying, setting down weighted crate from floor and counter surfaces. Pt confirms she is able to complete ADLs without increase in pain or need for rest breaks before completion. LTG Duration 06/21/25, 05/24/2025 goal met. Assessment Summary Assessment Pt has reached goals for ADL tolerance, able to complete dynamic standing, reaching, bending activities for the ADLs she needs to do at home. Pt still struggles with SLS tolerance, unable to reach 10 seconds on either leg. Encouraged pt to practice SLS in safe location with HEP. Pt did not practice SLS this last week. Pt able to tandem balance at 30 seconds bilaterally, pt also demonstrates no LOB on foam in WBOS, NBOS, and tandem. Pt reports some tightness in front of hip at end of session today and will provide feedback at next session as to any soreness lasting > 2 hours after today's session. Physical Therapy Plan Frequency and Duration Frequency of 2x/Week Treatment Duration of 12 treatment (weeks) Plan of Care Start 03/29/25 Date Plan of Care End 06/21/25 Date Therapeutic Interventions Therapeutic Balance Training,Gait Training,Home Exercise Program, Interventions Joint Mobilizations,Manual Therapy,Neuromuscular Re- education,Patient/Caregiver Education,Soft Tissue Mobilization,Taping,Therapeutic Activities,Therapeutic Exercises Modalities Cold Pack/Ice Massage,Hot Packs,Iontophoresis Next Visit Focus/Plan Next Note Type Treatment Note Next Visit Plan Assess reaction to 05/24 tx, assess SLS addition to HEP. Progress activities to strengthen gluts, promote improved balance and tolerance for SLS.
--- NOTE | 2025-05-29 12:27 | PT.OTN ---
Current Diagnoses Other chronic pain (05/29/25) Pain in right hip (05/29/25) Pleurodynia (05/29/25) Physical Therapy Treatment Note PT OP: Full Body Start: 04/05/25 10:44 Freq: Status: Active Protocol: Document 05/29/25 11:30 PD (Rec: 05/29/25 12:27 PD [id number]) Out-Patient Physical Therapy Visit Information Visit Information Visit Type Treatment Note Visit Note SHUN Richards led tx session with direct supervision by PINKY Llamas and patient permission. Visit Start Time 11:30 Visit Stop Time 12:10 Visit Number 17 Number of WINE STEWARD Visits 3 Progress Note Due 06/16/25 OP-PT Subjective Patient Comments Patient Comments Pt feeling fine. Has not had any new issues since last session. Still able to complete all ADLs at home. Doing HEP, added in dark blue band to seated hip abduction. Gym Equipment Shuttle Recovery Unilateral Squats Details R leg, L leg Resistance 25# Shuttle Recovery Stable Platform Reps/Time 2 x 10 Bilateral Squats Resistance 37# Shuttle Recovery Stable Platform Reps/Time 2 x 10 Shuttle Balance Shuttle Balance Details WBOS,, semi-tandem in front/back, WBOS in side to side Reps/Duration 30 hold for ea Comments Red chain setting. Intermittent LOB, need for UE support and GB support in semi-tandem. Pt uses good posture, Self recovers from small LOB, needs assistance from GB support for larger LOB. Therapeutic Exercises Sitting Exercises Hip abduction Sitting Exercise sustained hold prior to balance training Name Side bilateral Resistance TB #4 around thighs Reps/Minutes 60 sec hold then 15 reps Comments Cues for slow out, slow in, pt doing in HEP. Standing Exercises Star taps Standing Exercise Star taps front, side, back Name Side bilateral Equipment Used // bars, GB Reps/Minutes x 5 each side Comments Working on increasing tolerance for SLS activities, pt needed minimal UE. Side Stepping Standing Exercise Resisted side stepping Name Side bilateral Resistance L4 band at thighs Equipment Used // bars and GB Reps/Minutes 3 x 15' each Comments Pt did not need UE support, reports no pain. Hip Extension Standing Exercise Straight leg hip extension Name Side bilateral Equipment Used // bars Reps/Minutes 2 x 5 each w/ 3 second hold Comments Pt requires occasional UE support for balance, rRmore than L Neuro Re-Education Treatment Balance Activities Balance board Details NBOS Equipment at //, GB Reps/Duration x 30 hold Comments Front to Back, Side to Side. Pt able to hold with no LOB in both positions. Foam Stance Details WBOS, NBOS, Tandem Surface 2 foam Equipment // bars, GB Reps/Duration 1 x each position Comments 15 with eyes open, 15 with eyes closed each position. Pt has no LOB in WBOS or NBOS but occasional LOB with tandem eyes closed. Physical Therapy Assessment Goals 3 Impairment Balance Retirement Goal (LTG) Pt will perform R and L SLS at 10s each leg on even floor in order to improve balance, safety, and functional mobility. 04/26: Progressing, R: 7s, L: 2s, 2s, 2s 05/17-9 sec R, 4 sec L 05/22: 15 sec R, 4 sec L 05/24: 5, 7, 6 R; 3, 4, 3 L LTG Duration 06/21/25 2 Impairment Lack of HEP Impairment . Short Term Goal (STG Pt will be ind with progressive HEP at least 5x/wk for ) 3 wks in order to progress towards LTGs. 04/26: Progressing, reports 4x/wk for past 3 weeks STG Duration achieved 05/17 1 Impairment Activity tolerance Impairment Only able to stand to perform housework for 10-15 mins at a time before needing to sit 05/22/25: Pt reports able to perform standing, moving around ADLs for 30'. Retirement Goal (LTG) Pt will tolerate static and dynamic standing/reaching/ bending activities to simulate housework for 30 mins without seated rest break needed to improve function. 04/26: Pt reports intermittent progress depending on the day but overall slight improvement. 05/17-can make bed and put sheets on then has to sit down. Can only do 1 task at a time- mostly in LB and thoracic. 05/22/25: Pt able to do 30 minutes of standing and moving ADLs at home including dishwashing, laundry without increase in back discomfort. 05/24/25: Pt able to simulate lifting, carrying, setting down weighted crate from floor and counter surfaces. Pt confirms she is able to complete ADLs without increase in pain or need for rest breaks before completion. LTG Duration 06/21/25, 05/24/2025 goal met. Assessment Summary Assessment Pt reports no pain or other symptoms at close of therapy. Pt progressing with balance activities, with improved tolerance of single leg stance for multiple toe touch exercises. Progressed to star taps and hip extension taps in // bars. Pt had occasional need to weight tapping toe. Pt able do complete repeated 3 second holds. Pt progressed in foam balance adding in eyes closed, able to maintain with slight use of UE for 15 sec holds. Pt will continue current HEP with additional focus on SLS activities to increase tolerance. Physical Therapy Plan Frequency and Duration Frequency of 2x/Week Treatment Duration of 12 treatment (weeks) Plan of Care Start 03/29/25 Date Plan of Care End 06/21/25 Date Therapeutic Interventions Therapeutic Balance Training,Gait Training,Home Exercise Program, Interventions Joint Mobilizations,Manual Therapy,Neuromuscular Re- education,Patient/Caregiver Education,Soft Tissue Mobilization,Taping,Therapeutic Activities,Therapeutic Exercises Modalities Cold Pack/Ice Massage,Hot Packs,Iontophoresis Next Visit Focus/Plan Next Note Type Treatment Note Next Visit Plan Continue to progress balance, SLS tolerance with ther ex, glut strength to meet remaining goal of SLS. Add gait with uneven surfaces.
--- NOTE | 2025-05-31 15:24 | PT.OTN ---
Current Diagnoses Other chronic pain (05/31/25) Pain in right hip (05/31/25) Pleurodynia (05/31/25) Physical Therapy Treatment Note PT OP: Full Body Start: 04/05/25 10:44 Freq: Status: Active Protocol: Document 05/31/25 11:30 PD (Rec: 05/31/25 12:32 PD [id number]) Out-Patient Physical Therapy Visit Information Visit Information Visit Type Treatment Note Visit Note SHUN Richards led tx session with direct supervision by PINKY Llamas and patient permission. Visit Start Time 11:30 Visit Stop Time 12:10 Visit Number 18 Number of ACRYLIC FABRICATOR Visits 4 Progress Note Due 06/16/25 OP-PT Subjective Patient Comments Patient Comments Pt reported L knee is bothering her today. This happens from time to time, she does not think it is related to the last therapy session. Pain with walking is 4-5/10 in L knee. Back is doing okay today. Knee hurt when she got up this morning. Cardio Equipment Recumbent Elliptical (NuStep) Duration (Minutes) 8 Resistance 5 min @ 1, 3 min @ 3, B UE/LE, start slow d/t L knee pain Seat Position 7 Other Pt having L knee pn today, NuStep for ROM in L knee, cues for pain free. Therapeutic Exercises Supine Exercises D2 extension/flexion Side bilateral Resistance 2# DB Reps/Minutes x 5 each side Comments TC and VC for slow up to shoulder and down to opposite knee for core Knee fall out Side right Resistance body weight Reps/Minutes x 10 Comments completed during cold therapy to L knee, cues for pain free range PPT Supine Exercise Name PPT Side bilateral Reps/Minutes x 10 Comments Core work during cold therapy to L knee Sitting Exercises Hip abduction Sitting Exercise sustained hold prior Name Side bilateral Resistance TB #4 around thighs Reps/Minutes 60 sec hold then 15 reps Comments Cues for hold, slow out/in, stay pain free Manual Therapy Treatment Consent Patient gave verbal Yes consent for manual treatment Soft Tissue Mobilization Legs Body Location L knee, tib anterior Mobilization Type Oscillations,Rolling,Strumming,Sustained Pressure Intensity/Depth Superficial Body Position Hooklying Comments Knees on bolster, pain located just lateral and distal to L knee cap. Mobilized patella. Hot Pack/Cold Pack Treatment Cold Pack Location L knee, graves Patient Position Supine Patient Tolerance Good Comments 15 minutes, pillow case around pack, trial to address pt's L knee pain today, provided during supine ther ex for core, R leg Physical Therapy Assessment Goals 3 Impairment Balance Nursing Home Goal (LTG) Pt will perform R and L SLS at 10s each leg on even floor in order to improve balance, safety, and functional mobility. 04/26: Progressing, R: 7s, L: 2s, 2s, 2s 05/17-9 sec R, 4 sec L 05/22: 15 sec R, 4 sec L 05/24: 5, 7, 6 R; 3, 4, 3 L LTG Duration 06/21/25 2 Impairment Lack of HEP Impairment . Short Term Goal (STG Pt will be ind with progressive HEP at least 5x/wk for ) 3 wks in order to progress towards LTGs. 04/26: Progressing, reports 4x/wk for past 3 weeks STG Duration achieved 05/17 1 Impairment Activity tolerance Impairment Only able to stand to perform housework for 10-15 mins at a time before needing to sit 05/22/25: Pt reports able to perform standing, moving around ADLs for 30'. Assistant Professor Of History Goal (LTG) Pt will tolerate static and dynamic standing/reaching/ bending activities to simulate housework for 30 mins without seated rest break needed to improve function. 04/26: Pt reports intermittent progress depending on the day but overall slight improvement. 05/17-can make bed and put sheets on then has to sit down. Can only do 1 task at a time- mostly in LB and thoracic. 05/22/25: Pt able to do 30 minutes of standing and moving ADLs at home including dishwashing, laundry without increase in back discomfort. 05/24/25: Pt able to simulate lifting, carrying, setting down weighted crate from floor and counter surfaces. Pt confirms she is able to complete ADLs without increase in pain or need for rest breaks before completion. LTG Duration 06/21/25, 05/24/2025 goal met. Assessment Summary Assessment Pt unable to tolerate standing activities today due to left knee pain. Focused on gentle strengthening and ROM on NuStep, seated hip adb with L4 band, soft tissue and patella mobilization to L knee, and supine ther ex to core and R leg during cold pack to L knee. Pt reported pain in L knee improved from 4-5/10 at start of tx to 2/10 at end of ther ex. Reported less pain when walking out of clinic. Physical Therapy Plan Frequency and Duration Frequency of 2x/Week Treatment Duration of 12 treatment (weeks) Plan of Care Start 03/29/25 Date Plan of Care End 06/21/25 Date Therapeutic Interventions Therapeutic Balance Training,Gait Training,Home Exercise Program, Interventions Joint Mobilizations,Manual Therapy,Neuromuscular Re- education,Patient/Caregiver Education,Soft Tissue Mobilization,Taping,Therapeutic Activities,Therapeutic Exercises Modalities Cold Pack/Ice Massage,Hot Packs,Iontophoresis Next Visit Focus/Plan Next Note Type Treatment Note Next Visit Plan Assess L knee pain, ability to complete HEP and be active since last visit. Pt has reached all current tx goals addressing R hip pain except SLS.
--- NOTE | 2025-06-06 15:18 | PT.OPDS ---
Current Diagnoses Other chronic pain (06/06/25) Pain in right hip (06/06/25) Pleurodynia (06/06/25) Visit Care Team Role Provider Type Jt Saldaña DO Attending Provider Physician Family Provider Primary Care Provider Referring Provider Specialty: Family Practice Address: [address] [place] [address], [id number] Email: [email or web address] Visit Number Visit Number 19 Discharge Summary PT OP: Full Body Start: 04/05/25 10:44 Freq: Status: Active Protocol: Document 06/06/25 14:34 [facility] (Rec: 06/06/25 15:17 [facility] [id number]) Out-Patient Physical Therapy Visit Information Visit Information Visit Type Discharge Summary Visit Start Time 14:35 Visit Stop Time 15:15 Visit Number 19 Number of PAIRING MACHINE OPERATOR Visits 0 Progress Note Due 06/16/25 OP-PT Subjective Patient Comments Patient Comments pt reports she feels ready to DC today. feels good about HEP. Hip Strength Hip Manual Muscle Testing L Flexion (L2) 4 Good Abduction 4+ Good+ R Flexion (L2) 4- Good- Abduction 4 Good Knee Strength Knee Manual Muscle Testing L Flexion (S2) 4+ Good+ Extension (L3) 5 Normal R Flexion (S2) 5 Normal Extension (L3) 5 Normal Therapeutic Exercises Supine Exercises LTR Side bilateral Reps/Minutes 8 Comments cues core tp ush back down Knee fall out Side bilateral Resistance body weight Reps/Minutes x 10 Bridge Side bilateral Reps/Minutes 1 min hold PPT Supine Exercise Name PPT Side bilateral Reps/Minutes x5 Stretching Supine Exercise Name 1. HS 2. butterfly 3. modified maite stretch 4. piriformis Side bilateral Reps/Minutes 20 sec Comments no cues -check w/pt and feeling in all appropriate places Sidelying Exercises open book Side bilateral Resistance AROM Reps/Minutes x8 each sides Comments cues thoracic rot Sitting Exercises Hip abduction Sitting Exercise sustained hold prior Name Side bilateral Resistance TB #4 around thighs Reps/Minutes 60 sec hold Comments min cues Standing Exercises paloff press Side bilateral Equipment Used 2 lvl 1 bands Reps/Minutes 8 ea Comments min cues posture Step up/back down Side bilateral Equipment Used 4 in step Reps/Minutes 8 ea Comments cues slow down HIp Abduction Standing Exercise 1. abd 2. sidestep Name Side bilateral Equipment Used l4 at knees Reps/Minutes 1. 8 2.8 ft ea Comments cues neutral posture Manual Therapy Treatment Consent Patient gave verbal Yes consent for manual treatment Soft Tissue Mobilization R hip Body Location R glut, proximal SI jt Mobilization Type Rolling,Sustained Pressure Body Position Sidelying Comments Pt has TRP at prox R SI jt. SPTA and PAIRING MACHINE OPERATOR checked pelvic alignment in supine after bridge. Pelvis appeared aligned. Physical Therapy Assessment Goals 3 Impairment Balance Supervisor Order Takers Goal (LTG) Pt will perform R and L SLS at 10s each leg on even floor in order to improve balance, safety, and functional mobility. 04/26: Progressing, R: 7s, L: 2s, 2s, 2s 05/17-9 sec R, 4 sec L 05/22: 15 sec R, 4 sec L 05/24: 5, 7, 6 R; 3, 4, 3 L 06/06- 6 sec R , 4 sec L LTG Duration 06/21/25 2 Impairment Lack of HEP Impairment . Short Term Goal (STG Pt will be ind with progressive HEP at least 5x/wk for ) 3 wks in order to progress towards LTGs. 04/26: Progressing, reports 4x/wk for past 3 weeks STG Duration achieved 05/17 1 Impairment Activity tolerance Impairment Only able to stand to perform housework for 10-15 mins at a time before needing to sit 05/22/25: Pt reports able to perform standing, moving around ADLs for 30'. Supervisor Order Takers Goal (LTG) Pt will tolerate static and dynamic standing/reaching/ bending activities to simulate housework for 30 mins without seated rest break needed to improve function. 04/26: Pt reports intermittent progress depending on the day but overall slight improvement. 05/17-can make bed and put sheets on then has to sit down. Can only do 1 task at a time- mostly in LB and thoracic. 05/22/25: Pt able to do 30 minutes of standing and moving ADLs at home including dishwashing, laundry without increase in back discomfort. 05/24/25: Pt able to simulate lifting, carrying, setting down weighted crate from floor and counter surfaces. Pt confirms she is able to complete ADLs without increase in pain or need for rest breaks before completion. LTG Duration 06/21/25, 05/24/2025 goal met. Assessment Summary Assessment Pt is doing well with HEP and required very min cueing. She has improved with strength throughout her time w/ PT and is planning to cont w/HEP. Balance is still limited and she will cont to work on SLS at home. at this time dc to HEP d/t meeting most goals and indep w/ hEP Physical Therapy Plan Discharge Physical Therapy Discharge Reasons Goals Met Discharge Comments mostly met
== END 2025-06-08 08:57 | disposition home or self-care (01) ==
LOC: PHYS 14:30
PROVIDERS: Family Provider Family Medicine; PCP Family Medicine; Referring Provider Family Medicine; Visit Provider Family Medicine
DX: M25.551 Pain in right hip (principal); G89.29 Other chronic pain; R07.81 Pleurodynia
CPT/HCPCS: 97110; 97112; 97140; 97163; 97530